=== PATIENT | male | born 1960 | race Caucasian/White ===

== ENCOUNTER 2024-02-12 09:38 | Inpatient (IN) | payer OTHER ==
--- OUTSIDE RECORDS SUMMARY | 2024-02-12 09:48 | XMS REPORT | Continuity of Care Document ---
Author Name Unknown Address [address] [facility] [place] [address] [facility] Address [address] [facility] 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 Role Phone Neville Aranda M.D.mberly Primary Care Physician JUAN C LANG Attending Clinician Unavailable GREGORY ARRIAGA Attending Clinician Unavailable Doctor Unassigned, [place] Attending Clinician U carlos Morel RN, Yamilet Nicole Attending Clinician Unavailab SHIKHA Funes Attending Clinician Unavailmihai Dawson MD, Katty Nunn Attending Clinician [phone] Shikha Thomas MD Attending Clinician [phone] Shelbie Ross Cardiology Attending Clinician Unavailable Pob, [facility] Attending Clinician UnavailLevi Rangel MD Attending Clinician [phone] LEVI DASH Attending Clinician Juan C Pineda MD Attending Clinician [phone] FAROOQ ALMAZAN Attending Clinician UnavailVick Boewr DO Attending Clinician [phone] Nubia Rodas MD Attending Clinician [phone] Alexa Rivera Attending Clinician [phone] ALEXA MARTINEZ Attending Clinician Unavailable NUBIA RODAS Attending Clinician Unavailabl e Cardiology, Tdc Attending Clinician Unavailable Kierra Amin MD Attending Clinician UnavailJUAN C Del Rosario Admitting Clinician Unavailable SHIKHA THOMAS Admitting Clinician Shikha Francois MD Admitting Clinician [phone] Shelbie Ross Cardiology Admitting Clinician Unavailable Payers Payer Name Policy Type Policy Number Effective Date Expirati on Date Source CHOICE CARE [id number] 2019 00:00:00 Problems Condition Name Condition Details Condition Category Status Onset Date Resolution Date Last Treatment Date Treating Clinician Comments Source Morbid obesity with body mass index of 40.0-49.9 Morbid obesity with body mass index of 40.0-49.9 Disease Active 2022-05 00:00: 00 [facility] Altered mental status, unspecifie d altered mental status type Altered mental status, unspecifie d altered mental status type Disease Active 2022-05 00:00: 00 [facility] Injury, other and unspecifie d, knee, leg, ankle, and foot Injury, other and unspecifie d, knee, leg, ankle, and foot Disease Active 2 00:00: 00 Overview: Formattin g of this note might be different from the original. Ankle Injury NOS. [facility] Accidental fall from scaffoldin g Accidental fall from scaffoldin g Disease Active 2005-05 00:00: 00 [facility] Allergies, Adverse Reactions, Alerts Allergy Name Allergy Type Status Severity Reaction(s) Onset Date Inactive Date Treating Clinician Comments Source NAPROXEN DRUG INGREDI Active Unknown-Cmnt 2022-05 00:00: 00 [facility] Naproxen Propensi ty to adverse reaction s Active Unknown - See comments 2022-05 00:00: 00 [facility] No Known Allergie s DA Active U 01-26 00:00: 00 [facility] No Known Allergie s DA Active U 01-26 00:00: 00 [facility] NO KNOWN ALLERGIE S Drug Class Active [facility] Social History Social Habit Start Date Stop Date Quantity Comments Source Sexual orientation [facility] Alcohol intake 2023-03-23 00:00:00 2023-03-23 00:00:00 0 /d [facility] Exposure to SARS-CoV-2 (event) 2020-07-26 00:00:00 2020-08-25 12:19:00 Not sure [facility] History of Social function 2020-07-14 00:00:00 2020-07-14 00:00:00 [facility] Cigarettes smoked current (pack per day) - Reported 2016-03-24 00:00:00 2016-03-24 00:00:00 [facility] Cigarette pack-years 2016-03-24 00:00:00 2016-03-24 00:00:00 [facility] Tobacco use and exposure 2016-03-24 00:00:00 2016-03-24 00:00:00 Former smokeless tobacco user [facility] History of tobacco use 2002-03-24 00:00:00 Snuff User [facility] Sex Assigned At 1960 00:00:00 1960 00:00:00 [facility] Smoking Status Start Date Stop Date Source Ex-smoker 2016-03-24 00:00:00 2016-03-24 00:00:00 [facility] Medications Ordered Medication Name Filled Medication Name Start Date Stop Date Current Medication? Ordering Clinician Indication Dosage Frequency Signature (SIG) Comments Components Source gabapentin 800 mg tablet - 00:00: 00 Yes 1mg Kvng Lawson azithromyci n 250 mg tablet - 00:00: 00 Yes mg Kvng Lawson prednisone 20 mg tablet 10-05 00:00: 00 Yes mg Kvng Lawson cetirizine 10 mg tablet 5- 00:00: 00 Yes 1mg Kvng Lawson Flonase Allergy Relief 50 mcg/actuati on nasal spray,suspe nsion 5- 00:00: 00 Yes 2mcg/ac tuation Kvng Lawson fluticasone propionate 50 mcg/actuati on nasal spray,suspe nsion 5- 00:00: 00 Yes Kvng Lawson gabapentin 600 mg tablet - 00:00: 00 Yes Kvng Lawson azithromyci n 250 mg tablet - 00:00: 00 Yes mg Kvng Lawson Bromfed DM 2 mg-30 mg-10 mg/5 mL oral syrup - 00:00: 00 Yes 10mg/5 mL Kvng Lawson bromphenira mine-pseudo ephedrine-D M 2 mg-30 mg-10 mg/5 mL oral syrup 08-30 00:00: 00 Yes Kvng Lawson azithromyci n 250 mg tablet 08-30 00:00: 00 Yes Kvng Lawson diclofenac 3 % topical gel - 00:00: 00 Yes 1% Kvng Lawson gabapentin 800 mg tablet - 00:00: 00 Yes 1mg Kvng Lawson baclofen 10 mg tablet - 00:00: 00 Yes 1mg Kvng Lawson gabapentin 600 mg tablet -14 00:00: 00 Yes Kvng Lawson Lantus Solostar U-100 Insulin 100 unit/mL (3 mL) subcutaneou s pen -06 00:00: 00 Yes Kvng Lawson albuterol sulfate HFA 90 mcg/actuati on aerosol inhaler 3-05 00:00: 00 Yes mcg/act uation Kvng Lawson gabapentin 800 mg tablet -22 00:00: 00 Yes Kvng Lawson TAKE 1 CAPSULE BY MOUTH EVERY 12 HOURS FOR DENTAL INFECTION -21 00:00: 00 Yes Kvng Lawson metronidazo le 250 mg tablet 2-21 00:00: 00 Yes Kvng Lawson gabapentin 600 mg tablet 2-09 00:00: 00 Yes Kvng Lawson gabapentin 600 mg tablet - 00:00: 00 Yes mg Kvng Lawson baclofen 10 mg tablet -31 00:00: 00 Yes Kvng Lawson baclofen 10 mg tablet 1-08 00:00: 00 Yes Kvng Lawson atorvastati n 80 mg tablet 2022-05 2-17 00:00: 00 Yes Kvng Lawson Santyl 250 unit/gram topical ointment 2022-05 00:00: 00 Yes Kvng Lawson baclofen 10 mg tablet 2022-05 00:00: 00 Yes mg Kvng Lawson gabapentin 800 mg tablet 2022-05 00:00: 00 Yes Kvng Lawson TAKE 1 TABLET 3 TIMES DAILY. 2022-05 00:00: 00 Yes 800 Kvng Lawson TAKE 1 AT BEDTIME PRN ONLY 2022-05 00:00: 00 09-21 00:00 :00 No 10 Kvng Lawson INJECT UNITS BELOW THE SKIN DIRECTED ON SLIDING SCALE TID BEFORE MEALS AVERAGE 30 UNITS 2022-05 00:00: 00 09-21 00:00 :00 No 100 Kvng Lawson INJECT SC 3 TO 10 UNITS BEFORE MEALS THREE TIMES A DAY PLEASE CHECK THE BLOOD SUGARS BEFORE MEALS AND USE THE SLIDING SCALE 2022-05 00:00: 00 09-21 00:00 :00 No 100 Kvng Lawson Lantus Solostar U-100 Insulin 100 unit/mL (3 mL) subcutaneou s pen 2022-05 00:00: 00 Yes (3 mL) Kvng Lawson nebivolol 5 mg tablet 2022-05 00:00: 00 Yes Kvng Lawson sulfamethox azole-trime thoprim (BACTRIM DS) 800-160 mg per tablet 1 tablet 2022-05 02:00: 00 Yes 1{tbl} 1 tablet, Oral, BID, First dose on Tue03/29/23 at 2000, Until Discontinu ed, CASSIE
Re ason for Anti-Infec tive: Documented Infection< br>Documen jia Infection Site: Skin / Soft Tissue
Duration of Therapy: 14 days [facility] clopidogrel 75 mg tablet 2022-05 00:00: 00 Yes Kvng Lawson baclofen 10 mg tablet 2022-05 00:00: 00 Yes Kvng Lawson KCL (KLOR-CON M20) tablet 40 mEq 2022-05 14:00: 00 03-29 13:54 :00 No 40meq 40 mEq, Oral, ONCE, 1 dose, On Tue03/29/23 at 0800, Routine [facility] magnesium sulfate in water 2 gram/50 mL (4 %) infusion 2 g 2022-05 13:45: 00 03-29 15:08 :00 No 2g 2 g, IV Piggyback, Administer over 60 Minutes, ONCE, 1 dose, On Tue03/29/23 at 0745, Routine [facility] nortriptyli ne 75 mg capsule 2022-05 13:40: 18 Yes 75mg Take 75 mg by mouth at bedtime. [facility] aspirin 81 mg EC tablet 2022-05 13:40: 18 Yes 81mg Take 81 mg by mouth daily. [facility] atorvastati n 40 mg tablet 2022-05 13:40: 18 Yes 40mg Take 40 mg by mouth at bedtime. [facility] metFORMIN 1,000 mg tablet 2022-05 13:40: 18 Yes 1000mg Take 1,000 mg by mouth 2 (two) times daily with meals. [facility] metoprolol tartrate 50 mg tablet 2022-05 13:40: 18 Yes 50mg Take 50 mg by mouth 2 (two) times daily. [facility] omeprazole 20 mg capsule 2022-05 13:40: 18 Yes 20mg Take 20 mg by mouth 2 (two) times daily. [facility] TAKE 1 TABLET BY MOUTH IN THE MORNING AND IN THE EVENING FOR 14 DAYS 2022-05 00:00: 00 Yes Kvng Lawson TAKE 1 TO 2 TABLETS EVERY 4 TO 6 HOURS NEEDED FOR PAIN. NO MORE THAN 8 TABLETS PER DAY. 2022-05 00:00: 00 09-21 00:00 :00 No 50 Kvng Lawson sulfamethox azole-trime thoprim 800-160 mg per tablet 2022-05 00:00: 00 04-13 05:59 :00 No [id number] 1{tbl} Take 1 tablet by mouth in the morning and 1 tablet in the evening. Do all this for 14 days. [facility] phenoL (SORE THROAT (PHENOL)) 1.4 % spray bottle 1 [place] 2022-05 17:18: 14 Yes 1{spray } 1 [place], Oral, PRN, Starting on Tue03/28/23 at 1118, Until Discontinu ed, Routine, Sore throat [facility] magnesium sulfate in water 2 gram/50 mL (4 %) infusion 2 g 2022-05 17:15: 00 03-28 18:29 :00 No 2g 2 g, IV Piggyback, Administer over 60 Minutes, ONCE, 1 dose, On Tue03/28/23 at 1115, Routine [facility] pantoprazol e (PROTONIX) EC tablet 40 mg 2022-05 15:00: 00 Yes 40mg 40 mg, Oral, DAILY, First dose on Tue03/28/23 at 0900, Until Discontinu ed, Routine [facility] QUEtiapine (SEROQUEL) tablet 50 mg 2022-05 03:00: 00 Yes 50mg 50 mg, Oral, QHS, First dose (after last modificati on) on 03/27/23 at 2100, Until Discontinu ed, Routine [facility] traZODone (DESYREL) tablet 50 mg 2022-05 17:42: 59 Yes 50mg 50 mg, Oral, TIDPRN, Starting on Tue03/27/23 at 1142, Until Discontinu ed, Routine, agitation [facility] hydralAZINE (APRESOLINE ) injection 10 mg 2022-05 17:38: 49 Yes 10mg 10 mg, Slow IV Push, Q6HPRN, Starting on 03/27/23 at 1138, Until Discontinu ed, Routine, DBP=>100; SBP=>160, For SBP > 160 [facility] ziprasidone (GEODON) injection 10 mg 2022-05 03:37: 28 03-27 15:36 :28 No 10mg 10 mg, Intramuscu lar, Q2HPRN, Starting on 03/26/23 at 2137, Until 03/27/23 at 0936, Routine, Agitation [facility] magnesium sulfate in water 2 gram/50 mL (4 %) infusion 2 g 2022-05 03:30: 00 03-27 04:36 :00 No 2g 2 g, IV Piggyback, Administer over 60 Minutes, ONCE, 1 dose, On 03/26/23 at 2130, CASSIE [facility] dexMEDEtomi dine 400 mcg in 0.9 % NaCl 100 mL (PRECEDEX) RTU IV infusion 2022-05 01:16: 06 Yes .2ug/kg /h 0.2-1.5 mcg/kg/hr ?57.5 kg (2.875-21. 5625 mL/hr, rounded to 2.88-21.56 mL/hr), IV Infusion, TITRATE, Sedation-R ASS score (0 to -1), Starting on 03/26/23 at 1916
In itiate infusion at 0.2 mcg/kg/hr and titrate by 0.1 mcg/kg/hr every 30 minutes to goal sedation score. Maximum dose = 1.5 mcg/kg/hr. If goal not maintained at maximum allowed dose, contact prescriber .
[facility] vancomycin 1,000 mg intravenous injection 2022-05 00:00: 00 Yes Kvng Lawson diazePAM (VALIUM) injection 5 mg 2022-05 23:52: 15 03-27 03:38 :14 No 5mg 5 mg, Intravenou s, Q6HPRN, Starting on 03/26/23 at 1752, Until 03/26/23 at 2138, Routine, Agitation [facility] QUEtiapine (SEROQUEL) tablet 50 mg 2022-05 23:46: 42 03-27 17:44 :47 No 50mg 50 mg, Oral, BIDPRN, Starting on 03/26/23 at 1746, Until 03/27/23 at 1144, Routine, Agitation [facility] potassium chloride in water 10 mEq/100 mL RTU 10 mEq 2022-05 13:00: 00 03-26 19:00 :00 No 10meq 10 mEq, IV Piggyback, Q1H, 2 doses, First dose on 03/26/23 at 0700, Last dose on Tue03/26/23 at 0800, Administer over 60 Minutes, 100 mL [facility] magnesium sulfate in water 4 gram/50 mL (8 %) IV Piggyback 4 g 2022-05 13:00: 00 03-26 14:13 :00 No 4g 4 g, IV Piggyback, at 25 mL/hr Administer over 120 Minutes, ONCE, 1 dose, On 03/26/23 at 0700, CASSIE [facility] dexMEDEtomi dine 200 mcg in 0.9 % NaCl 50 mL (PRECEDEX) RTU IV infusion 2022-05 09:49: 48 03-27 01:17 :03 No .2ug/kg /h 0.2-1.5 mcg/kg/hr ?57.5 kg (2.875-21. 5625 mL/hr, rounded to 2.88-21.56 mL/hr), IV Infusion, TITRATE, Sedation-R ASS score (0 to -1), Starting on Tue03/26/23 at 0349
In itiate infusion at 0.2 mcg/kg/hr and titrate by 0.1 mcg/kg/hr every 30 minutes to goal sedation score. Maximum dose = 1.5 mcg/kg/hr. If goal not maintained at maximum allowed dose, contact prescriber .
[facility] LORazepam (ATIVAN) injection 1 mg 2022-05 09:15: 00 03-26 08:31 :00 No 1mg 1 mg, Slow IV Push, ONCE, 1 dose, On Tue03/26/23 at 0315, Routine [facility] morpHINE (2 mg/mL) injection 2 mg 2022-05 23:17: 09 Yes 2mg 2 mg, Slow IV Push, Q4HPRN, Starting on Tue03/25/23 at 1717, Until Discontinu ed, Routine, Pain (scale 7-10) [facility] nortriptyli ne (PAMELOR) capsule 75 mg 2022-05 03:00: 00 Yes 75mg 75 mg, Oral, QHS, First dose on Tue03/24/23 at 2100, Until Discontinu ed, Routine [facility] atorvastati n (LIPITOR) tablet 40 mg 2022-05 03:00: 00 Yes 40mg 40 mg, Oral, QHS, First dose on Tue03/24/23 at 2100, Until Discontinu ed, Routine [facility] collagenase (SANTYL) ointment 2022-05 21:00: 00 Yes Topical (Apply To Affected Areas), DAILY, First dose on Tue03/24/23 at 1500, Until Discontinu ed, Routine [facility] Sliding Scale Insulin - Lispro (HumaLOG) 2022-05 18:15: 00 Yes Subcutaneo us, Q4H, First dose on Tue03/24/23 at 1215, Until Discontinu ed, Routine [facility] glucagon (GLUCAGEN DIAGNOSTIC KIT) injection 1 mg 2022-05 18:11: 01 Yes 1mg 1 mg, Intramuscu lar, PRN, Starting on Tue03/24/23 at 1211, Until Discontinu ed, CASSIE, Blood Glucose < or = 70 mg/dL and patient is NPO, unable to swallow or has mental changes. [facility] dextrose 50 % in water (D50W) injection 25 mL 2022-05 18:11: 01 Yes 25mL 25 mL, Slow IV Push, PRN, Starting on Tue03/24/23 at 1211, Until Discontinu ed, CASSIE, Blood Glucose < or = 70 mg/dL and patient is NPO, unable to swallow or has mental status changes. [facility] hydralAZINE (APRESOLINE ) injection 10 mg 2022-05 18:10: 30 03-27 17:39 :03 No 10mg 10 mg, Slow IV Push, Q4HPRN, Starting on Tue03/24/23 at 1210, Until 03/27/23 at 1139, Routine, DBP=>100; SBP=>180 [facility] metoprolol tartrate (LOPRESSOR) tablet 50 mg 2022-05 18:00: 00 Yes 50mg 50 mg, Enteral, BID, First dose on Svitlana 03/24/23 at 1200, Until Discontinu ed, Routine [facility] omeprazole compounding kit (FIRST-OMEP RAZOLE) 2 mg/mL oral suspension 20 mg 2022-05 18:00: 00 03-27 21:07 :43 No 20mg 20 mg, Enteral, BID, First dose on Svitlana 03/24/23 at 1200, Until Discontinu ed, Routine [facility] fentaNYL PF (SUBLIMAZE) STD 2,500 mcg in NaCl 0.9% (NS) 250 mL infusion RTU 2022-05 15:48: 00 03-25 22:15 :59 No 25ug/h 25-200 mcg/hr (2.5-20 mL/hr), IV Infusion, TITRATE, CPOT/Pain Scale Goals Determined by Provider, Starting on Svitlana 03/24/23 at 0948
In itiate infusion at 25 mcg/hr. Titrate by 25 mcg/hr every 1 minute to 15 minutes to identified goal pain and/or sedation scores. Maximum dose = 200 mcg/hr. If goal not maintained at maximum allowed dose, contact prescriber .
[facility] FENTanyl PF (SUBLIMAZE (PF)) injection 50 mcg 2022-05 15:48: 00 03-24 15:52 :00 No 50ug 50 mcg, Slow IV Push, ONCE, 1 dose, On Svitlana 03/24/23 at 1000, STAT [facility] aspirin EC tablet 81 mg 2022-05 15:00: 00 Yes 81mg 81 mg, Oral, DAILY, First dose on Svitlana 03/24/23 at 0900, Until Discontinu ed, Routine [facility] enoxaparin (LOVENOX) injection 40 mg 2022-05 15:00: 00 Yes 40mg 40 mg, Subcutaneo us, DAILY, First dose on Svitlana 03/24/23 at 0900, Until Discontinu ed, Routine [facility] vancomycin (VANCOCIN) 1,000 mg in NaCl 0.9% (NS) 250 mL VIAL-MATE IV piggyback 2022-05 15:00: 00 03-30 14:59 :00 No 15mg/kg 1,000 mg (rounded from 952.5 mg = 15 mg/kg ?63.5 kg), IV Piggyback, Q12H ABX, 12 doses, First dose on Tue03/24/23 at 0900, Last dose on Tue03/29/23 at 2100, Administer over 60 Minutes, 250 mL
R nikita for Anti-Infec tive: Documented Infection< br>Documen jia Infection Site: Skin / Soft Tissue
Duration of Therapy: 7 days [facility] gabapentin (NEURONTIN) tablet 600 mg 2022-05 14:00: 00 Yes 600mg 600 mg, Oral, TID, First dose on Tue03/24/23 at 0800, Until Discontinu ed, Routine [facility] midazolam (VERSED) injection 2 mg 2022-05 12:15: 00 03-24 11:29 :00 No 2mg 2 mg, IV Push, ONCE, 1 dose, On Tue03/24/23 at 0615, Routine [facility] NaCl 0.9% (NS) IV infusion 1,000 mL 2022-05 07:00: 00 03-29 00:07 :17 No 1000mL at 100 mL/hr, IV Infusion, CONTINUOUS , Starting on Tue03/24/23 at 0100, Until Tue03/28/23 at 1807, Routine [facility] NaCl 0.9% (NS) bolus infusion 500 mL 2022-05 06:45: 00 03-24 07:08 :00 No 500mL at 999 mL/hr, 500 mL, IV Piggyback, ONCE, 1 dose, On Tue03/24/23 at 0045, STAT [facility] ondansetron (ZOFRAN (PF)) injection 4 mg 2022-05 05:47: 34 Yes 4mg 4 mg, Slow IV Push, Q6HPRN, Starting on Tue03/23/23 at 2347, Until Discontinu ed, Routine, Nausea and Vomiting (N/V) [facility] morpHINE (2 mg/mL) injection 2 mg 2022-05 05:47: 26 03-25 05:46 :26 No 2mg 2 mg, Slow IV Push, Q4HPRN, Starting on Tue03/23/23 at 2347, Until Svitlana 03/24/23 at 2346, Routine, Pain (scale 7-10) [facility] acetaminoph en (TYLENOL) tablet 650 mg 2022-05 05:47: 20 Yes 650mg 650 mg, Oral, Q6HPRN, Starting on Tue03/23/23 at 2347, Until Discontinu ed, Routine, Pain (scale 1-3) [facility] NaCl 0.9% (NS) IV infusion 1,000 mL 2022-05 04:00: 00 03-26 02:08 :34 No 1000mL at 999 mL/hr, Intravenou s, CONTINUOUS , Starting on Tue03/23/23 at 2200, Until Tue03/25/23 at 2008, Routine [facility] propofoL IV infusion 2022-05 02:45: 00 03-25 22:15 :59 No 5ug/kg/ min 5-50 mcg/kg/min ?63.5 kg (1.905-19. 05 mL/hr, rounded to 1.91-19.05 mL/hr), IV Infusion, TITRATE, Sedation-R ASS score (0 to -1), Starting on Tue03/23/23 at 2044
In itiate infusion at 5 mcg/kg/min and titrate by 5 mcg/kg/min every 30 seconds to 10 minutes to goal sedation score. Maximum dose = 50 mcg/kg/min . If goal not maintained at maximum allowed dose, contact prescriber . &nbs p;Tubing and unused portions of vials should be discarded after 12 hours.
[facility] etomidate (AMIDATE) injection 18 mg 2022-05 02:00: 00 03-24 01:58 :00 No 18mg 18 mg, Slow IV Push, ONCE, 1 dose, On Tue03/23/23 at 2000, [facility] succinylcho line (QUELICIN) injection 90 mg 2022-05 01:58: 00 03-24 01:58 :00 No 90mg 90 mg, IV Push, ONCE, 1 dose, On Tue03/23/23 at 2015, STAT [facility] ziprasidone (GEODON) injection 20 mg 2022-05 01:45: 00 03-24 02:13 :00 No 20mg 20 mg, Intramuscu lar, ONCE, 1 dose, On Tue03/23/23 at 2013, [facility] Lidocaine Viscous 2 % mucosal solution 2022-05- 00:00: 00 Yes [facility] vancomycin 1,000 mg intravenous injection 2022-05- 00:00: 00 Yes Kvng Lawson TAKE 1 TABLET BY MOUTH EVERY 8 HOURS NEEDED FOR PAIN 2022-05 0-31 00:00: 00 09-21 00:00 :00 No [facility] vancomycin 1,000 mg intravenous injection 2022-05 0-28 00:00: 00 09-21 00:00 :00 No Kvng Lawson APPLY A NICKEL THIN TOPICALLY TO WOUND DAILY 2022-05 0-26 00:00: 00 Yes Kvng Lawson duloxetine 60 mg capsule,del ayed release 2022-05 0-20 00:00: 00 09-21 00:00 :00 No [facility] Lawson nebivolol 2.5 mg tablet 2022-05 0-17 00:00: 00 Yes Kvng Lawson TAKE 1 CAPSULE BY MOUTH EVERY DAY 2022-05 0-16 00:00: 00 09-21 00:00 :00 No 60 [facility] Lawson nebivolol 2.5 mg tablet 2022-05 0-15 00:00: 00 09-21 00:00 :00 No K[facility] vancomycin 1,000 mg intravenous injection 2022-05 0-14 00:00: 00 09-21 00:00 :00 No Kvng Lawson TAKE 1 TABLET 3 TIMES DAILY. 2022-05 0-13 00:00: 00 Yes 800 K[facility]ng Lawson Lidocaine Viscous 2 % mucosal solution 2022-05 0-12 00:00: 00 09-21 00:00 :00 No [facility] gabapentin 600 mg tablet 2022-05 0-12 00:00: 00 09-21 00:00 :00 No Kvng Lawson APPLY SPARINGLY TO THE AFFECTED AREA(S) TWICE DAILY. 2022-05 0- 00:00: 00 Yes 3 Kvng Lawson acetic acid 0.25 % irrigation solution 2022-05 0- 00:00: 00 09-21 00:00 :00 No K[facility]ng [facility] vancomycin 1,000 mg intravenous injection 2022-05 0-08 00:00: 00 09-21 00:00 :00 No K[facility]ng [facility] vancomycin 1,000 mg intravenous injection 2022-05 0-06 00:00: 00 09-21 00:00 :00 No Kvng Lawson vancomycin 1,000 mg intravenous injection 02-11 00:00: 00 09-21 00:00 :00 No Kvng Lawson Santyl 250 unit/gram topical ointment 02-10 00:00: 00 09-21 00:00 :00 Chantal Lawson TAKE 1 TABLET EVERY 6 HOURS NEEDED FOR BREAKTHROUG H PAIN. 02-08 00:00: 00 09-21 00:00 :00 No 50 Kvng Lawson ciprofloxac in 500 mg tablet 02-05 00:00: 00 09-21 00:00 :00 No K[facility]ng Lawson gabapentin 800 mg tablet 02-03 00:00: 00 09-21 00:00 :00 Chantal Lawson TAKE 1 TABLET BY MOUTH TWICE DAILY FOR 7 DAYS 02-03 00:00: 00 09-21 00:00 :00 No Kvng Lawson TAKE 1 TABLET 3 TIMES DAILY. 02-02 00:00: 00 09-21 00:00 :00 No 800 Kvng Lawson atorvastati n 80 mg tablet 16 00:00: 00 09-21 00:00 :00 No Kvng Lawson ciprofloxac in 500 mg tablet 01-25 00:00: 00 09-21 00:00 :00 No Kvng Lawson doxycycline hyclate 100 mg tablet 01-25 00:00: 00 09-21 00:00 :00 No Kvng Lawson Farxiga 10 mg tablet 01-24 00:00: 00 09-21 00:00 :00 No Kvng Lawson TAKE 1 TABLET BY MOUTH THREE TIMES DAILY 01-22 00:00: 00 Yes Kvng Lawson TAKE 1 CAPSULE TWICE DAILY. 01-22 00:00: 00 09-21 00:00 :00 No 100 Kvng Lawson TAKE 1 TABLET BY MOUTH EVERY MORNING 01-22 00:00: 00 09-21 00:00 :00 No 10 Kvng Lawson TAKE 1 TABLET BY MOUTH ONCE DAILY 01-21 00:00: 00 09-21 00:00 :00 No Kvng Sánchez Renny tramadol 50 mg tablet 01-15 00:00: 00 09-21 00:00 :00 No Kvng Lawson TAKE 1 TABLET EVERY 6 HOURS NEEDED FOR BREAKTHROUG H PAIN. 01-14 00:00: 00 09-21 00:00 :00 No 50 Kvng Lawson TAKE 1 TABLET DAILY. 01-13 00:00: 00 09-21 00:00 :00 No 75 Kvng Sánchez Renny 20 UNITS Q NIGHTLY 01-13 00:00: 00 09-21 00:00 :00 No 100 Kvng Sánchez Lawson Santyl 250 unit/gram topical ointment 01-09 00:00: 00 09-21 00:00 :00 No Kvng Sánchez Renny TAKE 1 CAPSULE BY MOUTH TWICE DAILY 01-06 00:00: 00 09-21 00:00 :00 No Kvng Lawson hydrocodone 7.5 mg-acetamin ophen 325 mg tablet 01-06 00:00: 00 09-21 00:00 :00 No Kvng Lawson ibuprofen 800 mg tablet 01-05 00:00: 00 09-21 00:00 :00 No Kvng Lawson baclofen 10 mg tablet 01-05 00:00: 00 09-21 00:00 :00 No Kvng Lawson amoxicillin 500 mg capsule 01-05 00:00: 00 09-21 00:00 :00 No Kvng Sánchez Lawson TAKE 1 TABLET EVERY 4 TO 6 HOURS NEEDED FOR PAIN. 12-22 00:00: 00 09-21 00:00 :00 No 50 Kvng Lawson duloxetine 60 mg capsule,del ayed release 12-01 00:00: 00 09-21 00:00 :00 No Kvng Pozo Renny TAKE 1 TABLET EVERY 12 HOURS NEEDED. 11-30 00:00: 00 09-21 00:00 :00 No 50 Kvng Lawson Santyl 250 unit/gram topical ointment 11-30 00:00: 00 09-21 00:00 :00 No 250 Kvng Lawson APPLY OINTMENT DAILY TO LEFT DORSAL FOOT WOUND 11-29 00:00: 00 09-21 00:00 :00 No Kvng Sánchez Lawson gabapentin 600 mg tablet 11-19 00:00: 00 09-21 00:00 :00 No Kvng Sánchez Lawson albuterol sulfate HFA 90 mcg/actuati on aerosol inhaler 11-17 00:00: 00 09-21 00:00 :00 Chantal Prabhakarhen Sánchez Renny INHALE 2 PUFFS EVERY 4-6 HOURS NEEDED. 10-19 00:00: 00 09-21 00:00 :00 No [id number] Kvng Lawson TAKE 1 TABLET BY MOUTH 3 TIMES DAILY 10-19 00:00: 00 09-21 00:00 :00 No [id number] Kvng Lawson duloxetine 30 mg capsule,del ayed release - 00:00: 00 09-21 00:00 :00 No Kvng Sánchez Renny TAKE 1 TABLET BY MOUTH TWICE DAILY 2023-0 4-19 00:00: 00 09-21 00:00 :00 No Kvng Lawson TAKE 1 TABLET 3 TIMES DAILY. 4-17 00:00: 00 09-21 00:00 :00 No 600 Kvng F Renny duloxetine 60 mg capsule,del ayed release 4-06 00:00: 00 09-21 00:00 :00 No 60 Kvng F Renny ketoconazol e 2 % topical cream 3-14 00:00: 00 09-21 00:00 :00 No 2 Kvng Lawson APPLY SPARINGLY TO THE AFFECTED AREA(S) TWICE DAILY. 2- 00:00: 00 09-21 00:00 :00 No 3 Kvng F Renny baclofen 10 mg tablet 2-23 00:00: 00 09-21 00:00 :00 No Kvng F Renny duloxetine 40 mg capsule,del ayed release 2-14 00:00: 00 09-21 00:00 :00 No 40 Kvng F Renny ketoconazol e 2 % topical cream 2-06 00:00: 00 09-21 00:00 :00 No Kvng Lawson TAKE 1 TABLET BY MOUTH AT BEDTIME 1-10 00:00: 00 09-21 00:00 :00 No Kvng Lawson APPLY CREAM TOPICALLY TO RASH ON GROIN AND BUTTOCKS TWICE DAILY 1-09 00:00: 00 09-21 00:00 :00 No Kvng Lawson Dose Unknown 2021-05 2-15 00:00: 00 09-21 00:00 :00 No Kvng Lawson baclofen 10 mg tablet 2021-05 2-15 00:00: 00 09-21 00:00 :00 No Kvng Lawson tizanidine 4 mg capsule 2021-05 2-15 00:00: 00 09-21 00:00 :00 No Kvng Lawson Dose Unknown 2021-05 2-15 00:00: 00 09-21 00:00 :00 No Kvng Lawson gabapentin 800 mg tablet 2022-1 2-15 00:00: 00 09-21 00:00 :00 No Kvng F Ernny diclofenac sodium 75 mg tablet,gurdeep yed release 2021-05 2-15 00:00: 00 09-21 00:00 :00 No Kvng F Renny TAKE 1 TABLET BY MOUTH EVERY 6 HOURS NEEDED FOR PAIN 2021-05 2-15 00:00: 00 09-21 00:00 :00 No Kvng F Renny Dose Unknown 2021-05 2-15 00:00: 00 09-21 00:00 :00 No Kvng F Renny Dose Unknown 2021-05 2-15 00:00: 00 09-21 00:00 :00 No Kvng F Renny cyclobenzap rine 5 mg tablet 2021-05 2-15 00:00: 00 09-21 00:00 :00 No Kvng F Renny Dose Unknown 2021-05 2-15 00:00: 00 09-21 00:00 :00 No Kvng F Renny diclofenac sodium 50 mg tablet,gurdeep yed release 2021-05 2-15 00:00: 00 09-21 00:00 :00 No Kvng F Renny Dose Unknown 2021-05 2-15 00:00: 00 09-21 00:00 :00 No Kvng F Renny Dose Unknown 2021-05 2-15 00:00: 00 09-21 00:00 :00 No Kvng F Renny Dose Unknown 2021-05 2-15 00:00: 00 09-21 00:00 :00 No Kvng F Renny Dose Unknown 2021-05 2-15 00:00: 00 09-21 00:00 :00 No Kvng F Renny Dose Unknown 2021-05 2-15 00:00: 00 09-21 00:00 :00 No Kvng F Renny Dose Unknown 2021-05 2-15 00:00: 00 09-21 00:00 :00 No Kvng F Renny Dose Unknown 2021-05 2-15 00:00: 00 09-21 00:00 :00 No Kvng F Renny Dose Unknown 2021-05 2-15 00:00: 00 09-21 00:00 :00 No Kvng F Renny Dose Unknown 2021-05 2-15 00:00: 00 09-21 00:00 :00 No Kvng F Renny Dose Unknown 2021-05 215 00:00: 00 09-21 00:00 :00 No Kvng F Renny Dose Unknown 2021-05 2-15 00:00: 00 09-21 00:00 :00 No Kvng F Renny Dose Unknown 2021-05 2 00:00: 00 09-21 00:00 :00 No Kvng F Renny APPLY 1ML TO THE SKIN DIRECTED; CLEAN WOUND DAILY NEEDED 2021-05 2 00:00: 00 09-21 00:00 :00 No Kvng F Renny Dose Unknown 2021-05 2 00:00: 00 09-21 00:00 :00 No Kvng F Renny Dose Unknown 2021-05 2- 00:00: 00 09-21 00:00 :00 No Kvng F Renny ketoconazol e 2 % topical cream 2021-05 2- 00:00: 00 09-21 00:00 :00 No 2 K[facility] F Renny baclofen 10 mg tablet 2021-05 1-17 00:00: 00 09-21 00:00 :00 No 10 K[facility] F Renny ketoconazol e 2 % topical cream 2021-05 1-05 00:00: 00 09-21 00:00 :00 No Kvng F Renny gabapentin 800 mg tablet 2021-05 1-03 00:00: 00 09-21 00:00 :00 No Kvng F Renny diclofenac 1 % topical gel 9-29 00:00: 00 09-21 00:00 :00 No 1 K[facility] F Renny baclofen 10 mg tablet 2021- 8-11 00:00: 00 No 1mg baclofen 10 mg tablet 8-11 00:00: 00 Yes 1mg Kvng F Renny Dose Unknown 7-23 00:00: 00 No &lt 2-0 7-23 00:00: 00 No &lt 2-0 7-23 00:00: 00 No Dose Unknown 7 00:00: 00 No &lt 2022-0 12-05 00:00: 00 No &lt 2022-0 12-05 00:00: 00 No Dose Unknown 2022-0 12-05 00:00: 00 No &lt 2022-0 12-05 00:00: 00 No Dose Unknown 2022-0 12-05 00:00: 00 No &lt 2022-0 12-05 00:00: 00 No &lt 2022-0 12-05 00:00: 00 No &lt 2022-0 12-05 00:00: 00 No Dose Unknown 2022-0 12-05 00:00: 00 No &lt 2022-0 12-05 00:00: 00 No &lt 2022-0 12-05 00:00: 00 No &lt 2022-0 12-05 00:00: 00 No Dose Unknown 2022-0 12-05 00:00: 00 Yes Kvng F Renny &lt 2022-0 12-05 00:00: 00 Yes Kvng F Renny &lt 2022-0 12-05 00:00: 00 Yes Kvng F Renny Dose Unknown 2022-0 12-05 00:00: 00 Yes Kvng F Renny &lt 2022-0 12-05 00:00: 00 Yes Kvng F Renny &lt 2022-0 12-05 00:00: 00 Yes Kvng F Renny Dose Unknown 2-0 12-05 00:00: 00 Yes Kvng F Renny &lt 2022-0 12-05 00:00: 00 Yes Kvng F Renny Dose Unknown 2022-0 12-05 00:00: 00 Yes Kvng F Renny &lt 2022-0 12-05 00:00: 00 Yes Kvng F Renny &lt 2022-0 12-05 00:00: 00 Yes Kvng F Renny &lt 2022-0 12-05 00:00: 00 Yes Kvng F Renny Dose Unknown 2022-0 12-05 00:00: 00 Yes Kvng F Renny &lt 2022-0 12-05 00:00: 00 Yes Kvng F Renny &lt 2022-0 12-05 00:00: 00 Yes Kvng F Renny &lt 2022-0 12-05 00:00: 00 Yes Kvng F Renny gabapentin 800 mg tablet 2-0 11-19 00:00: 00 No 1mg baclofen 10 mg tablet 2-0 7- 00:00: 00 No 1mg duloxetine 40 mg capsule,del ayed release 2021-0 - 00:00: 00 No 1mg &lt 2022-0 - 00:00: 00 No &lt 2022-0 11-19 00:00: 00 No gabapentin 800 mg tablet 2-0 11-19 00:00: 00 Yes 1mg Kvng Lawson baclofen 10 mg tablet 2-0 11-19 00:00: 00 Yes 1mg Kvng Lawson duloxetine 40 mg capsule,del ayed release 2021-0 11-19 00:00: 00 Yes 1mg Kvng Lawson &lt 2022-0 11-19 00:00: 00 Yes Kvng Lawson &lt 2022-0 11-19 00:00: 00 Yes Kvng Lawson diclofenac 1 % topical gel 2021-0 11-19 00:00: 00 05- 00:00 :00 No 1 Kvng Lawson &lt 2022-0 7- 00:00: 00 No &lt 2022-0 7- 00:00: 00 Yes Kvng Lawson diclofenac potassium 50 mg tablet 2-0 6-30 00:00: 00 No 1mg diclofenac potassium 50 mg tablet 2-0 6-30 00:00: 00 Yes 1mg Kvng Pozo Renny &lt 2022-0 6-29 00:00: 00 No &lt 2022-0 6-29 00:00: 00 No &lt 2022-0 6-29 00:00: 00 Yes Kvng Lawson &lt 2022-0 6-29 00:00: 00 Yes Kvng Lawson &lt 2022-0 6-24 00:00: 00 No &lt 2022-0 6-24 00:00: 00 Yes Kvng Lawson duloxetine 40 mg capsule,del ayed release 2-0 6- 00:00: 00 No 1mg duloxetine 40 mg capsule,del ayed release 2-0 6- 00:00: 00 Yes 1mg Kvng Lwason gabapentin 800 mg tablet 2-0 5-25 00:00: 00 No 1mg gabapentin 800 mg tablet 2-0 5-25 00:00: 00 Yes 1mg Kvng Lawson diclofenac potassium 50 mg tablet 0 - 00:00: 00 No 1mg diclofenac potassium 50 mg tablet 2021-0 - 00:00: 00 Yes 1mg Kvng Lawson diclofenac sodium 50 mg tablet,gurdeep yed release 0 - 00:00: 00 - 00:00 :00 No 50 Kvng Lawson mupirocin 2 % topical ointment 0 - 00:00: 00 No 1% Januvia 100 mg tablet 0 - 00:00: 00 No 1mg acetaminoph en 300 mg-codeine 30 mg tablet 0 - 00:00: 00 No 1mg clindamycin HCl 300 mg capsule 0 - 00:00: 00 No 1mg mupirocin 2 % topical ointment 0 09-14 00:00: 00 Yes 1% Kv[facility] Lawson Januvia 100 mg tablet 0 - 00:00: 00 Yes 1mg Kvng Lawson acetaminoph en 300 mg-codeine 30 mg tablet 0 - 00:00: 00 Yes 1mg Kvng Lawson clindamycin HCl 300 mg capsule 0 - 00:00: 00 Yes 1mg Kvng Lawson Dose Unknown 0 -18 00:00: 00 No Dose Unknown 0 -18 00:00: 00 Yes Kvng Lawson Bactrim DS 800 mg-160 mg tablet 0 -12 00:00: 00 No 1mg Dose Unknown 0 -12 00:00: 00 No Bactrim DS 800 mg-160 mg tablet 0 4-12 00:00: 00 Yes 1mg Kvng Lawson Dose Unknown 0 4-12 00:00: 00 Yes Kvng Lawson acetaminoph en 300 mg-codeine 30 mg tablet 0 3-31 00:00: 00 No 1mg acetaminoph en 300 mg-codeine 30 mg tablet 0 3-31 00:00: 00 Yes 1mg Kvng Lawson Dose Unknown 0 3-21 00:00: 00 No Dose Unknown 0 3-21 00:00: 00 Yes Kvng Lawson Januvia 100 mg tablet 2-0 3-16 00:00: 00 No 1mg tizanidine 4 mg capsule 2-0 3-16 00:00: 00 No 1mg Dose Unknown 2-0 3-16 00:00: 00 No Dose Unknown 2022-0 3-16 00:00: 00 No Januvia 100 mg tablet 2-0 3-16 00:00: 00 Yes 1mg Kvng Lawson tizanidine 4 mg capsule 2-0 3-16 00:00: 00 Yes 1mg Kvng Lawson Dose Unknown 2022-0 3-16 00:00: 00 Yes Kvng Lawson Dose Unknown 2022-0 3-16 00:00: 00 Yes Kvng Lawson Dose Unknown 2-0 3-15 00:00: 00 No Dose Unknown 2022-0 3-15 00:00: 00 No Hibiclens 4 % topical liquid 2-0 3-15 00:00: 00 No 1% Dose Unknown 2022-0 3-15 00:00: 00 Yes Kvng Lawson Dose Unknown 2022-0 3-15 00:00: 00 Yes Kvng Lawson Hibiclens 4 % topical liquid 2-0 3-15 00:00: 00 Yes 1% Kvng Lawson Dose Unknown 2-0 3-14 00:00: 00 No Dose Unknown 2-0 3-14 00:00: 00 No Dose Unknown 2022-0 3-14 00:00: 00 No Dose Unknown 2022-0 3-14 00:00: 00 Yes Kvng Lawson Dose Unknown 2022-0 3-14 00:00: 00 Yes Kvng Lawson Dose Unknown 2022-0 3-14 00:00: 00 Yes Kvng Lawson mupirocin 2 % topical ointment 2-0 2-16 00:00: 00 No % clindamycin HCl 300 mg capsule 2-0 2-16 00:00: 00 No 1mg mupirocin 2 % topical ointment 2-0 2-16 00:00: 00 Yes % Kvng Lawson clindamycin HCl 300 mg capsule 2-0 2-16 00:00: 00 Yes 1mg Kvng Lawson Januvia 100 mg tablet 2022-0 2-01 00:00: 00 No 1mg Dose Unknown 2- 00:00: 00 No metformin 1,000 mg tablet 2- 00:00: 00 No 1mg Bactrim DS 800 mg-160 mg tablet 2- 00:00: 00 No 1mg Dose Unknown 2- 00:00: 00 No atorvastati n 40 mg tablet 2- 00:00: 00 No 1mg tizanidine 4 mg capsule 2- 00:00: 00 No 1mg Januvia 100 mg tablet 2- 00:00: 00 Yes 1mg Kvng Lawson Dose Unknown 2- 00:00: 00 Yes Kvng Lawson metformin 1,000 mg tablet 2- 00:00: 00 Yes 1mg Kvng Lawson Bactrim DS 800 mg-160 mg tablet 2- 00:00: 00 Yes 1mg Kvng Lawson gabapentin 800 mg tablet 2- 00:00: 00 Yes 1mg Kvng Lawson atorvastati n 40 mg tablet 2- 00:00: 00 Yes 1mg Kvng Lawson tizanidine 4 mg capsule 2- 00:00: 00 Yes 1mg Kvng Lawson gabapentin 800 mg tablet 2020-05 2-16 00:00: 00 No 1mg tizanidine 4 mg capsule 2020-05 2-16 00:00: 00 No 1mg gabapentin 800 mg tablet 2020-05 2-16 00:00: 00 Yes 1mg Kvng Lawson tizanidine 4 mg capsule 2020-05 2-16 00:00: 00 Yes 1mg Kvng Lawson cyclobenzap rine 5 mg tablet 2020-05 2-10 00:00: 00 No 12mg diclofenac sodium 75 mg tablet,gurdeep yed release 2020-05 2-10 00:00: 00 No 1mg cyclobenzap rine 5 mg tablet 2020-05 2-10 00:00: 00 Yes 12mg Kvng Lawson diclofenac sodium 75 mg tablet,gurdeep yed release 2020-05 2- 00:00: 00 Yes 1mg Kvng Lawson diclofenac sodium 75 mg tablet,gurdeep yed release 01-08 00:00: 00 No 1mg metformin 1,000 mg tablet 01-08 00:00: 00 No 1mg gabapentin 600 mg tablet 01-08 00:00: 00 No 1mg diclofenac sodium 75 mg tablet,gurdeep yed release 01-08 00:00: 00 Yes 1mg Kvng Lawson metformin 1,000 mg tablet 01-08 00:00: 00 Yes 1mg Kvng Lawson gabapentin 600 mg tablet 01-08 00:00: 00 Yes 1mg Kvng Lawson diclofenac sodium 75 mg tablet,gurdeep yed release 10-22 00:00: 00 No 1mg diclofenac sodium 75 mg tablet,gurdeep yed release 10-22 00:00: 00 Yes 1mg Kvng Lawson diclofenac sodium 75 mg tablet,gurdeep yed release 09-19 00:00: 00 No 1mg gabapentin 600 mg tablet 09-19 00:00: 00 No 1mg diclofenac sodium 75 mg tablet,gurdeep yed release 09-19 00:00: 00 Yes 1mg Kvng Lawson gabapentin 600 mg tablet 09-19 00:00: 00 Yes 1mg Kvng Lawson diclofenac sodium 50 mg tablet,gurdeep yed release 08-08 00:00: 00 No 1mg diclofenac sodium 50 mg tablet,gurdeep yed release 08-08 00:00: 00 Yes 1mg Kvng Lawson diclofenac sodium 50 mg tablet,gurdeep yed release 07-11 00:00: 00 No 1mg diclofenac sodium 50 mg tablet,gurdeep yed release 07-11 00:00: 00 Yes 1mg Kvng Lawson carBAMazepi ne 200 mg tablet 06-18 22:08: 12 06-18 00:00 :00 No 400mg Take 400 mg by mouth every 12 (twelve) hours. [facility] amLODIPine 5 mg tablet 06-18 22:08: 12 06-18 00:00 :00 No 5mg Take 5 mg by mouth daily. [facility] glipiZIDE 5 mg tablet 06-18 22:08: 12 06-18 00:00 :00 No 5mg Take 5 mg by mouth daily. [facility] carBAMazepi ne 200 mg tablet 06-18 16:08: 12 06-18 00:00 :00 No 400mg Take 400 mg by mouth every 12 (twelve) hours. [facility] amLODIPine 5 mg tablet 06-18 16:08: 12 06-18 00:00 :00 No 5mg Take 5 mg by mouth daily. [facility] glipiZIDE 5 mg tablet 06-18 16:08: 06-18 00:00 :00 No 5mg Take 5 mg by mouth daily. [facility] methylPREDN ISolone (MEDROL, YULIA,) 4 mg tablets 06-18 00:00: 00 03-29 00:00 :00 No [id number] 84mg Take 21 tablets by mouth SEE-INSTRU CTIONS. follow package directions [facility] tiZANidine 4 mg capsule 06-12 00:00: 00 Yes [facility] BYSTOLIC 2.5 mg tablet 06-11 00:00: 00 03-29 00:00 :00 No [facility] diclofenac sodium 50 mg tablet,gurdeep yed release 06-10 00:00: 00 No 1mg diclofenac sodium 50 mg tablet,gurdeep yed release 06-10 00:00: 00 Yes 1mg Kvng Sánchez Lawson Januvia 100 mg tablet 05-28 00:00: 00 No 1mg Januvia 100 mg tablet 05-28 00:00: 00 Yes 1mg Kvng Lawson tizanidine 4 mg capsule 05-20 00:00: 00 No 1mg tizanidine 4 mg capsule 05-20 00:00: 00 Yes 1mg Kvng Lawson gabapentin 600 mg tablet 05-17 00:00: 00 Yes 600mg Take 600 mg by mouth 3 (three) times daily. [facility] diclofenac 75 mg EC tablet 2019-05 00:00: 00 Yes 75mg Take 75 mg by mouth 2 (two) times daily. [facility] diclofenac sodium 75 mg tablet,gurdeep yed release 2019-05 00:00: 00 No 1mg Zithromax 250 mg tablet 2019-05 00:00: 00 No 1mg diclofenac sodium 75 mg tablet,gurdeep yed release 2019-05 00:00: 00 Yes 1mg Kvng Lawson Zithromax 250 mg tablet 2019-05 00:00: 00 Yes 1mg Kvng Lawson JANUVIA 100 mg tablet 2019-05 00:00: 00 Yes 100mg Take 100 mg by mouth daily. [facility] metformin 1,000 mg tablet 2019-05 00:00: 00 No 1mg metformin 1,000 mg tablet 2019-05 00:00: 00 Yes 1mg Kvng Lawson diclofenac sodium 75 mg tablet,gurdeep yed release 01-30 00:00: 00 No 1mg diclofenac sodium 75 mg tablet,gurdeep yed release 01-30 00:00: 00 Yes 1mg Kvng Lawson Januvia 100 mg tablet 01-27 00:00: 00 No 1mg Januvia 100 mg tablet 01-27 00:00: 00 Yes 1mg Kvng Lawson tizanidine 4 mg capsule 11-14 00:00: 00 No 1mg tizanidine 4 mg capsule 11-14 00:00: 00 Yes 1mg Kvng Lawson Voltaren 1 % topical gel 11-12 00:00: 00 No 1% lisinopril 2.5 mg tablet 11-12 00:00: 00 No 1mg Januvia 100 mg tablet 11-12 00:00: 00 No 1mg diclofenac sodium 75 mg tablet,gurdeep yed release 11-12 00:00: 00 No 1mg metformin 1,000 mg tablet 11-12 00:00: 00 No 1mg gabapentin 600 mg tablet 11-12 00:00: 00 No 1mg atorvastati n 40 mg tablet 11-12 00:00: 00 No 1mg Voltaren 1 % topical gel 11-12 00:00: 00 Yes 1% Kvng Lawson lisinopril 2.5 mg tablet 11-12 00:00: 00 Yes 1mg Kvng Lawson Januvia 100 mg tablet 11-12 00:00: 00 Yes 1mg Kvng Lawson diclofenac sodium 75 mg tablet,gurdeep yed release 11-12 00:00: 00 Yes 1mg Kvng Lawson metformin 1,000 mg tablet 11-12 00:00: 00 Yes 1mg Kvng Lawson gabapentin 600 mg tablet 11-12 00:00: 00 Yes 1mg Kvng Lawson atorvastati n 40 mg tablet 11-12 00:00: 00 Yes 1mg Kvng Lawson diclofenac sodium 75 mg tablet,gurdeep yed release 0 09-25 00:00: 00 No 1mg diclofenac sodium 75 mg tablet,gurdeep yed release 0 09-25 00:00: 00 Yes 1mg Kvng Lawson Voltaren 1 % topical gel 09-24 00:00: 00 No 1% Januvia 100 mg tablet 09-24 00:00: 00 No 1mg gabapentin 600 mg tablet 09-24 00:00: 00 No 1mg lisinopril 2.5 mg tablet 09-24 00:00: 00 No 1mg metformin 1,000 mg tablet 09-24 00:00: 00 No 1mg atorvastati n 40 mg tablet 09-24 00:00: 00 No 1mg Voltaren 1 % topical gel 09-24 00:00: 00 Yes 1% Kvng Lawson Januvia 100 mg tablet 09-24 00:00: 00 Yes 1mg Kvng Lawson gabapentin 600 mg tablet 09-24 00:00: 00 Yes 1mg Kvng Lawson lisinopril 2.5 mg tablet 09-24 00:00: 00 Yes 1mg Kvng Lawson metformin 1,000 mg tablet 09-24 00:00: 00 Yes 1mg Kvng Lawson atorvastati n 40 mg tablet 2019-0 5-12 00:00: 00 Yes 1mg Kvng Lawson Voltaren 1 % topical gel 2019-0 3-31 00:00: 00 No 1% tizanidine 4 mg capsule 2019-0 3-31 00:00: 00 No 1mg Voltaren 1 % topical gel 2019-0 3-31 00:00: 00 Yes 1% Kvng Lawson tizanidine 4 mg capsule 2019-0 3-31 00:00: 00 Yes 1mg Kvng Lawson diclofenac sodium 75 mg tablet,gurdeep yed release 2020-0 3-18 00:00: 00 No 1mg diclofenac sodium 75 mg tablet,gurdeep yed release 2019-0 3-18 00:00: 00 Yes 1mg Kvng Lawson tizanidine 4 mg tablet 2019-0 2-17 00:00: 00 No 1mg tizanidine 4 mg tablet 2019-0 2-17 00:00: 00 Yes 1mg Kvng Lawson tizanidine 4 mg capsule 2019-0 2-14 00:00: 00 No 1mg tizanidine 4 mg capsule 2019-0 2-14 00:00: 00 Yes 1mg Kvng Lawson gabapentin 600 mg tablet 2019-0 2-13 00:00: 00 No 1mg atorvastati n 40 mg tablet 2019-0 2-13 00:00: 00 No 1mg diclofenac sodium 75 mg tablet,gurdeep yed release 2019-0 2-13 00:00: 00 No 1mg tizanidine 4 mg capsule 2019-0 2-13 00:00: 00 No 1mg glimepiride 4 mg tablet 2019-0 2-13 00:00: 00 No 1mg gabapentin 600 mg tablet 2019-0 2-13 00:00: 00 Yes 1mg Kvng Lawson glimepiride 4 mg tablet 2019-0 2-13 00:00: 00 Yes 1mg Kvng Lawson atorvastati n 40 mg tablet 2019-0 2-13 00:00: 00 Yes 1mg Kvng Lawson diclofenac sodium 75 mg tablet,gurdeep yed release 2020-0 2-13 00:00: 00 Yes 1mg Kvng Lwason tizanidine 4 mg capsule 2019-0 2-13 00:00: 00 Yes 1mg Kvng Lawson atorvastati n 40 mg tablet 06-27 00:00: 00 No 1mg gabapentin 600 mg tablet 06-27 00:00: 00 No 1mg glimepiride 4 mg tablet 06-27 00:00: 00 No 1mg baclofen 10 mg tablet 06-27 00:00: 00 No 1mg atorvastati n 40 mg tablet 06-27 00:00: 00 Yes 1mg Kvng Lawson gabapentin 600 mg tablet 06-27 00:00: 00 Yes 1mg Kvng Lawson glimepiride 4 mg tablet 06-27 00:00: 00 Yes 1mg Kvng Lawson baclofen 10 mg tablet 06-27 00:00: 00 Yes 1mg Kvng Lawson omeprazole 20 mg capsule 2016-05 20:38: 59 Yes 20mg Take 20 mg by mouth 2 (two) times daily. [facility] metoprolol tartrate 50 mg tablet 2016-05 20:38: 58 Yes 50mg Take 50 mg by mouth 2 (two) times daily. [facility] nortriptyli ne 75 mg capsule 2016-05 20:38: 58 Yes 75mg Take 75 mg by mouth at bedtime. [facility] aspirin 81 mg EC tablet 2016-05 20:38: 58 Yes 81mg Take 81 mg by mouth daily. [facility] atorvastati n 40 mg tablet 2016-05 20:38: 58 Yes 40mg Take 40 mg by mouth at bedtime. [facility] metFORMIN 1,000 mg tablet 2016-05 20:38: 58 Yes 1000mg Take 1,000 mg by mouth 2 (two) times daily with meals. [facility] omeprazole 20 mg capsule 2016-05 14:38: 59 Yes 20mg Take 20 mg by mouth 2 (two) times daily. [facility] nortriptyli ne 75 mg capsule 2016-05 14:38: 58 Yes 75mg Take 75 mg by mouth at bedtime. [facility] aspirin 81 mg EC tablet 2016-05 14:38: 58 Yes 81mg Take 81 mg by mouth daily. [facility] atorvastati n 40 mg tablet 2016-05 14:38: 58 Yes 40mg Take 40 mg by mouth at bedtime. [facility] metFORMIN 1,000 mg tablet 2016-05 14:38: 58 Yes 1000mg Take 1,000 mg by mouth 2 (two) times daily with meals. [facility] metoprolol tartrate 50 mg tablet 2016-05 14:38: 58 Yes 50mg Take 50 mg by mouth 2 (two) times daily. [facility] Immunizations Ordered Immunization Name Filled Immunization Name Date Status Comments Source zoster 2012-05-16 00:00:00 Completed zoster 2012-05-16 00:00:00 Completed zoster 2012-05-16 00:00:00 Completed zoster zoster 2012-05-16 00:00:00 Completed [facility] Vital Signs Vital Name Observation Time Observation Value Comments S alyssa Systolic blood pressure 2023-03-29 18:00:00 157 mm[Hg] [facility] Diastolic blood pressure 2023-03-29 18:00:00 95 mm[Hg] [facility] Body temperature 2023-03-29 18:00:00 36.44 [facility] Heart rate 2023-03-29 16:00:00 81 /min [facility] Respiratory rate 2023-03-29 16:00:00 15 /min [facility] Oxygen saturation in Arterial blood by Pulse oximetry 2023-03-29 16:00:00 98 /min [facility] Body weight 2023-03-29 10:00:00 57.516 kg [facility] BMI 2023-03-29 10:00:00 18.73 kg/m2 [facility] Body height 2023-03-24 01:13:00 175.3 cm [facility] Body temperature 2020-08-25 16:09:00 36.67 [facility] Body weight 2020-08-25 16:09:00 60.328 kg [facility] BMI 2020-08-25 16:09:00 19.93 kg/m2 [facility] Body temperature 2020-08-18 18:35:00 37.22 [facility] Body weight 2020-08-18 18:35:00 61.78 kg [facility] BMI 2020-08-18 18:35:00 20.41 kg/m2 [facility] Systolic blood pressure 2020-07-14 19:32:00 122 mm[Hg] [facility] Diastolic blood pressure 2020-07-14 19:32:00 76 mm[Hg] [facility] Body height 2020-07-14 19:32:00 174 cm [facility] Body weight 2020-07-14 19:32:00 68.04 kg [facility] BMI 2020-07-14 19:32:00 22.47 kg/m2 [facility] Systolic blood pressure 2020-06-18 22:06:00 121 mm[Hg] [facility] Diastolic blood pressure 2020-06-18 22:06:00 79 mm[Hg] [facility] Heart rate 2020-06-18 22:06:00 65 /min [facility] Body height 2020-06-18 22:06:00 174 cm [facility] Body weight 2020-06-18 22:06:00 68.04 kg [facility] BMI 2020-06-18 22:06:00 22.48 kg/m2 [facility] Systolic blood pressure 2017-03-23 17:12:00 138 mm[Hg] [facility] Diastolic blood pressure 2017-03-23 17:12:00 73 mm[Hg] [facility] Heart rate 2017-03-23 17:12:00 89 /min [facility] Body temperature 2017-03-23 17:12:00 36.89 [facility] Respiratory rate 2017-03-23 17:12:00 18 /min [facility] Body height 2017-03-23 17:12:00 175.3 cm [facility] Body weight 2017-03-23 17:12:00 72.576 kg [facility] BMI 2017-03-23 17:12:00 23.63 kg/m2 [facility] BP Systolic 2023-10-06 14:16:00 130 mm[Hg] Step hen F Renny BP Diastolic 2023-10-06 14:16:00 85 mm[Hg] Daren phen F Renny Weight Measured 2023-10-06 14:16:00 116.80 pounds [facility] F Renny Height Measured 2023-10-06 14:16:00 68.00 inches [facility]ng F Renny Body Temperature 2023-10-06 14:16:00 98.10 degrees [facility]vng F Renny Heart Rate 2023-10-06 14:16:00 119.00 /min [facility] Respiratory Rate 2023-10-06 14:16:00 18.00 /min Kvng F Renny BP Systolic 2023-09-14 11:32:00 144 mm[Hg] Step hen F Renny BP Diastolic 2023-09-14 11:32:00 80 mm[Hg] Daren phen F Renny Weight Measured 2023-09-14 11:32:00 129.00 pounds Kvng F Renny Height Measured 2023-09-14 11:32:00 68.00 inches Kvng F Renny Body Temperature 2023-09-14 11:32:00 98.40 degrees Kvng F Renny Heart Rate 2023-09-14 11:32:00 91.00 /min Marivel en F Renny Respiratory Rate 2023-09-14 11:32:00 18.00 /min Kvng F Renny BP Systolic 2023-08-31 15:14:00 136 mm[Hg] Step hen F Renny BP Diastolic 2023-08-31 15:14:00 86 mm[Hg] Daren phen F Renny Weight Measured 2023-08-31 15:14:00 122.40 pounds Kvng F Renny Height Measured 2023-08-31 15:14:00 68.00 inches Kvng F Renny Body Temperature 2023-08-31 15:14:00 98.40 degrees Kvng F Renny Heart Rate 2023-08-31 15:14:00 102.00 /min Step hen F Renny Respiratory Rate 2023-08-31 15:14:00 Kvng F Renny BP Systolic 2023-07-20 14:27:00 162 mm[Hg] Step hen F Renny BP Diastolic 2023-07-20 14:27:00 91 mm[Hg] Daren phen F Renny Weight Measured 2023-07-20 14:27:00 130.60 pounds Kvng F Renny Height Measured 2023-07-20 14:27:00 68.00 inches Kvng F Renny Body Temperature 2023-07-20 14:27:00 97.40 degrees Kvng F Renny Heart Rate 2023-07-20 14:27:00 95.00 /min Marivel en F Renny Respiratory Rate 2023-07-20 14:27:00 Kvng F Renny BP Systolic 2023-04-14 10:42:00 128 mm[Hg] Step hen F Renny BP Diastolic 2023-04-14 10:42:00 76 mm[Hg] Daren phen F Renny Weight Measured 2023-04-14 10:42:00 125.00 pounds Kvng F Renny Height Measured 2023-04-14 10:42:00 68.00 inches Kvng F Renny Body Temperature 2023-04-14 10:42:00 98.40 degrees Kvng F Renny Heart Rate 2023-04-14 10:42:00 80.00 /min Marivel en F Renny Respiratory Rate 2023-04-14 10:42:00 Kvng F Renny BP Systolic 2023-03-29 16:16:00 168 mm[Hg] Step hen F Renny BP Diastolic 2023-03-29 16:16:00 101 mm[Hg] Daren phen F Renny Weight Measured 2023-03-29 16:16:00 126.40 pounds Kvng F Renny Height Measured 2023-03-29 16:16:00 68.00 inches Kvng F Renny Body Temperature 2023-03-29 16:16:00 98.40 degrees Kvng F Renny Heart Rate 2023-03-29 16:16:00 96.00 /min Marivel en F Renny Respiratory Rate 2023-03-29 16:16:00 Kvng F Renny BP Systolic 2023-03-15 10:35:00 129 mm[Hg] Step hen F Renny BP Diastolic 2023-03-15 10:35:00 79 mm[Hg] Daren phen F Renny Weight Measured 2023-03-15 10:35:00 127.00 pounds Kvng F Renny Height Measured 2023-03-15 10:35:00 68.00 inches Knvg F Renny Body Temperature 2023-03-15 10:35:00 98.40 degrees Kvng F Renny Heart Rate 2023-03-15 10:35:00 92.00 /min Marivel en F Renny Respiratory Rate 2023-03-15 10:35:00 Kvng F Renny BP Systolic 2023-02-02 15:44:00 120 mm[Hg] Step hen F Renny BP Diastolic 2023-02-02 15:44:00 78 mm[Hg] Daren phen F Renny Weight Measured 2023-02-02 15:44:00 116.00 pounds Kvng F Renny Height Measured 2023-02-02 15:44:00 68.00 inches Kvng F Renny Body Temperature 2023-02-02 15:44:00 98.60 degrees Kvng F Renny Heart Rate 2023-02-02 15:44:00 110.00 /min Step hen F Renny Respiratory Rate 2023-02-02 15:44:00 Kvng F Renny BP Systolic 2023-01-22 10:11:00 188 mm[Hg] Step hen F Renny BP Diastolic 2023-01-22 10:11:00 113 mm[Hg] Daren phen F Renny Weight Measured 2023-01-22 10:11:00 111.40 pounds Kvng F Renny Height Measured 2023-01-22 10:11:00 68.00 inches Kvng F Renny Body Temperature 2023-01-22 10:11:00 98.60 degrees Kvng F Renny Heart Rate 2023-01-22 10:11:00 112.00 /min Step hen F Rneny Respiratory Rate 2023-01-22 10:11:00 Kvng F Renny BP Systolic 2023-01-14 16:38:00 187 mm[Hg] Step hen F Renny BP Diastolic 2023-01-14 16:38:00 86 mm[Hg] Daren phen F Renny Weight Measured 2023-01-14 16:38:00 123.60 pounds Kvng F Renny Height Measured 2023-01-14 16:38:00 68.00 inches Kvng F Renny Body Temperature 2023-01-14 16:38:00 98.30 degrees Kvng F Renny Heart Rate 2023-01-14 16:38:00 75.00 /min Marivel Lawson Respiratory Rate 2023-01-14 16:38:00 Kvng Lawson BP Systolic 2022-02-04 14:00:00 117 mm[Hg] BP Diastolic 2022-02-04 14:00:00 69 mm[Hg] Weight Measured 2022-02-04 14:00:00 132.00 pounds Height Measured 2022-02-04 14:00:00 68.00 inches Body Temperature 2022-02-04 14:00:00 97.30 degrees Heart Rate 2022-02-04 14:00:00 88.00 /min Respiratory Rate 2022-02-04 14:00:00 BP Systolic 2021-08-04 15:29:00 144 mm[Hg] BP Diastolic 2021-08-04 15:29:00 79 mm[Hg] Weight Measured 2021-08-04 15:29:00 135.00 pounds Height Measured 2021-08-04 15:29:00 68.00 inches Body Temperature 2021-08-04 15:29:00 98.00 degrees Heart Rate 2021-08-04 15:29:00 72.00 /min Respiratory Rate 2021-08-04 15:29:00 BP Systolic 2021-06-15 11:22:00 134 mm[Hg] BP Diastolic 2021-06-15 11:22:00 81 mm[Hg] Weight Measured 2021-06-15 11:22:00 134.20 pounds Height Measured 2021-06-15 11:22:00 68.00 inches Body Temperature 2021-06-15 11:22:00 98.00 degrees Heart Rate 2021-06-15 11:22:00 64.00 /min Respiratory Rate 2021-06-15 11:22:00 BP Systolic 2021-04-30 17:06:00 107 mm[Hg] BP Diastolic 2021-04-30 17:06:00 54 mm[Hg] Weight Measured 2021-04-30 17:06:00 136.80 pounds Height Measured 2021-04-30 17:06:00 68.00 inches Body Temperature 2021-04-30 17:06:00 97.60 degrees Heart Rate 2021-04-30 17:06:00 74.00 /min Respiratory Rate 2021-04-30 17:06:00 BP Systolic 2021-04-24 14:43:00 131 mm[Hg] BP Diastolic 2021-04-24 14:43:00 82 mm[Hg] Weight Measured 2021-04-24 14:43:00 133.00 pounds Height Measured 2021-04-24 14:43:00 68.00 inches Body Temperature 2021-04-24 14:43:00 98.30 degrees Heart Rate 2021-04-24 14:43:00 81.00 /min Respiratory Rate 2021-04-24 14:43:00 BP Systolic 2020-08-12 08:33:00 101 mm[Hg] BP Diastolic 2020-08-12 08:33:00 64 mm[Hg] Weight Measured 2020-08-12 08:33:00 139.60 pounds Height Measured 2020-08-12 08:33:00 68.00 inches Body Temperature 2020-08-12 08:33:00 98.10 degrees Heart Rate 2020-08-12 08:33:00 62.00 /min Respiratory Rate 2020-08-12 08:33:00 BP Systolic 2020-06-10 17:11:00 127 mm[Hg] BP Diastolic 2020-06-10 17:11:00 73 mm[Hg] Weight Measured 2020-06-10 17:11:00 139.60 pounds Height Measured 2020-06-10 17:11:00 68.00 inches Body Temperature 2020-06-10 17:11:00 98.40 degrees Heart Rate 2020-06-10 17:11:00 70.00 /min Respiratory Rate 2020-06-10 17:11:00 BP Systolic 2019-12-26 10:25:00 BP Diastolic 2019-12-26 10:25:00 Weight Measured 2019-12-26 10:25:00 145.00 pounds Height Measured 2019-12-26 10:25:00 68.00 inches Body Temperature 2019-12-26 10:25:00 Heart Rate 2019-12-26 10:25:00 Respiratory Rate 2019-12-26 10:25:00 BP Systolic 2019-10-30 15:46:00 139 mm[Hg] BP Diastolic 2019-10-30 15:46:00 73 mm[Hg] Weight Measured 2019-10-30 15:46:00 145.00 pounds Height Measured 2019-10-30 15:46:00 68.00 inches Body Temperature 2019-10-30 15:46:00 97.40 degrees Heart Rate 2019-10-30 15:46:00 70.00 /min Respiratory Rate 2019-10-30 15:46:00 BP Systolic 2019-09-25 10:16:00 140 mm[Hg] BP Diastolic 2019-09-25 10:16:00 78 mm[Hg] Weight Measured 2019-09-25 10:16:00 147.00 pounds Height Measured 2019-09-25 10:16:00 68.00 inches Body Temperature 2019-09-25 10:16:00 Heart Rate 2019-09-25 10:16:00 75.00 /min Respiratory Rate 2019-09-25 10:16:00 BP Systolic 2019-06-27 09:41:00 132 mm[Hg] BP Diastolic 2019-06-27 09:41:00 78 mm[Hg] Weight Measured 2019-06-27 09:41:00 148.00 pounds Height Measured 2019-06-27 09:41:00 68.00 inches Body Temperature 2019-06-27 09:41:00 97.60 degrees Heart Rate 2019-06-27 09:41:00 70.00 /min Respiratory Rate 2019-06-27 09:41:00 Procedures Procedure Date / Time Performed Performing Clinician Source REFERRAL- REQUEST/RESPONSE 2023-04-15 06:01:00 Doctor Unassigned, [place] [facility] POCT GLUCOSE (AUTOMATED) 2023-03-29 17:36:00 Lyndon Thomas [facility] POCT GLUCOSE (AUTOMATED) 2023-03-29 13:34:00 Lyndon Thomas [facility] POCT GLUCOSE (AUTOMATED) 2023-03-29 09:30:00 Lyndon Thomas [facility] MAGNESIUM 2023-03-29 07:26:00 [facility] BASIC METABOLIC PANEL (NA, K, CL, CO2, GLUCOSE, BUN, CREATININE, CA) 2023-03-29 07:26:00 Edison Hickman [facility] CBC WITH DIFF 2023-03-29 07:26:00 Edison Hickman [facility] POCT GLUCOSE (AUTOMATED) 2023-03-29 01:53:00 Lyndon Thomas [facility] POCT GLUCOSE (AUTOMATED) 2023-03-28 22:28:00 Lyndon Thomas [facility] POCT GLUCOSE (AUTOMATED) 2023-03-28 17:31:00 Lyndon Thomas [facility] POCT GLUCOSE (AUTOMATED) 2023-03-28 13:32:00 Lyndon Thomas [facility] POCT GLUCOSE (AUTOMATED) 2023-03-28 10:20:00 Lyndon Thomas [facility] MAGNESIUM 2023-03-28 10:08:00 Shikha Thomas [facility] POCT GLUCOSE (AUTOMATED) 2023-03-28 06:09:00 Lyndon Thomas [facility] VANCOMYCIN TROUGH 2023-03-28 02:18:00 [facility] ([facility]) 2023-03-28 01:58:00 Lyndon Thomas [facility] POCT GLUCOSE (AUTOMATED) 2023-03-27 22:13:00 Lyndon Thomas [facility] POCT GLUCOSE (AUTOMATED) 2023-03-27 17:09:00 Lyndon Thomas [facility] POCT GLUCOSE (AUTOMATED) 2023-03-27 13:37:00 Lyndon Thomas [facility] MAGNESIUM 2023-03-27 10:19:00 Shihka Thomas [facility] C-REACTIVE PROTEIN 2023-03-27 10:19:00 [facility]OLIC PANEL (NA, K, CL, CO2, GLUCOSE, BUN, CREATININE, CA) 2023-03-27 10:19:00 Edison Hickman [facility] SEDIMENTATION RATE 2023-03-27 10:19:00 Edison Hickman [facility] CBC WITH DIFF 2023-03-27 10:19:00 Edison Hickman [facility] POCT GLUCOSE (AUTOMATED) 2023-03-27 10:18:00 Lyndon Thomas [facility] POCT GLUCOSE (AUTOMATED) 2023-03-26 22:24:00 Lyndon Thomas [facility] POCT GLUCOSE (AUTOMATED) 2023-03-26 17:03:00 Lyndon Thomas [facility] POCT GLUCOSE (AUTOMATED) 2023-03-26 14:00:00 Lyndon Thomas [facility] POCT GLUCOSE (AUTOMATED) 2023-03-26 10:33:00 Lynodn Thomas [facility] MAGNESIUM 2023-03-26 10:18:00 Shikha Thomas [facility] BASIC METABOLIC PANEL (NA, K, CL, CO2, GLUCOSE, BUN, CREATININE, CA) 2023-03-26 10:18:00 Edison Hickman [facility] CBC WITH DIFF 2023-03-26 10:18:00 Edison Hickman [facility] POCT GLUCOSE (AUTOMATED) 2023-03-26 06:17:00 Lyndon Thomas [facility] POCT GLUCOSE (AUTOMATED) 2023-03-26 02:59:00 Lyndon Thomas [facility] VANCOMYCIN TROUGH 2023-03-26 02:14:00 Edison Hickman [facility] POCT GLUCOSE (AUTOMATED) 2023-03-25 22:22:00 Lyndon Thomas [facility] POCT GLUCOSE (AUTOMATED) 2023-03-25 17:10:00 Lyndon Thomas [facility] POCT GLUCOSE (AUTOMATED) 2023-03-25 13:53:00 Lyndon Thomas [facility] ACUTE CARE ARTERIAL BLOOD GAS 2023-03-25 12:47:00 Shikha Thomas [facility] POCT GLUCOSE (AUTOMATED) 2023-03-25 10:32:00 Lyndon Thomas [facility] PHOSPHORUS 2023-03-25 10:04:00 Edison Hickman [facility] sity [facility] MAGNESIUM 2023-03-25 10:04:00 Shikha Thomas [facility] BASIC METABOLIC PANEL (NA, K, CL, CO2, GLUCOSE, BUN, CREATININE, CA) 2023-03-25 10:04:00 Edison Hickman [facility] CBC WITH DIFF 2023-03-25 10:04:00 Marylou Edison [facility] POCT GLUCOSE (AUTOMATED) 2023-03-25 06:15:00 Lyndon Thomas [facility] POCT GLUCOSE (AUTOMATED) 2023-03-25 02:33:00 Lyndon Thomas [facility] POCT GLUCOSE (AUTOMATED) 2023-03-24 22:34:00 Lyndon Thomas [facility] XR ABDOMEN 1 VW 2023-03-24 16:45:27 Edison Hickman [facility] POCT GLUCOSE (AUTOMATED) 2023-03-24 16:35:00 Lyndon Thomas [facility] XR ABDOMEN 1 VW 2023-03-24 16:04:00 Edison Hickman [facility] MAGNESIUM 2023-03-24 09:49:00 Shikha Thomas [facility] HEPATIC FUNCTION PANEL (23463) (ALB,T.PRO,BILI T,BU/BC,ALT,AST,ALK PHOS) 2023-03-24 09:49:00 Shikha Thomas [facility] BASIC METABOLIC PANEL (NA, K, CL, CO2, GLUCOSE, BUN, CREATININE, CA) 2023-03-24 09:49:00 Shikha Thomas [facility] ACUTE CARE ARTERIAL BLOOD GAS 2023-03-24 09:49:00 Shikha Thomas [facility] CBC WITH DIFF 2023-03-24 09:49:00 Shikha [facility] [place] LACTIC ACID WHOLE BLOOD 2023-03-24 09:49:00 Nu Thomas mmad [facility] [place] INTUBATION ENDOTRACHEAL EMERGENCY PROCEDURE 2023-03-24 03:33:47 Katty Dawson [facility] XR CHEST 1 VW 2023-03-24 02:44:00 Katty Dawson [facility] XR FOOT 3+ VW LEFT 2023-03-24 02:44:00 Katty Dawson [facility] AC PANEL 20 + LACTIC ACID 2023-03-24 02:41:00 Katty Dawson [facility] CT HEAD WO CONTRAST 2023-03-24 02:31:03 Katty Dawson [facility] ASSIGNMENT OF BENEFITS 2023-03-24 02:22:20 Docto r Unassigned, [place] [facility] CONSENT/REFUSAL FOR DIAGNOSIS AND TREATMENT 2023-03-24 02:21:39 Doctor Unassigned, [place] [facility] XR CHEST 1 VW 2023-03-24 02:11:52 Katty Dawson [facility] SALICYLATE 2023-03-24 02:11:00 Katty Dawson [facility] ETHANOL 2023-03-24 02:11:00 Katty Dawson [facility] BLOOD CULTURE SCREEN 2023-03-24 01:27:00 Mitul Dawson i [facility] CREATINE KINASE 2023-03-24 01:27:00 [facility] 2023-03-24 01:27:00 Katty Dawson [facility] COMP. METABOLIC PANEL (41891) 2023-03-24 01:27:00 Katty Dawson [facility] URINE DRUG (IMMUNOASSAY) - COMPREHENSIVE DRUG SCREEN 2023-03-24 01:27:00 Katty Dawson [facility] CBC WITH DIFF 2023-03-24 01:27:00 Katty Dawson [facility] PROTHROMBIN TIME / INR 2023-03-24 01:27:00 Alina Dawson [facility] URINALYSIS 2023-03-24 01:27:00 Katty Dawson [facility] RAPID INFLUENZA A/B 2023-03-24 01:27:00 Katty Dawson [facility] COVID-19 (ID NOW RAPID TESTING) 2023-03-24 01:27:00 Katty Dawson [facility] LAB ONLY COVID INTERPRETATION 2023-03-24 01:27:00 Katty Dawson [facility] POCT GLUCOSE(AGE >30DAYS) 2023-03-24 01:11:00 Katty Dawson [facility] HB ECG ROUTINE & RHYTHM STRIP 2023-03-24 01:10:10 Katty Dawson [facility] POCT GLUCOSE (AUTOMATED) 2023-03-24 01:09:00 Doc tor Unassigned, [place] [facility] [id number] Arterial Mar Yalice Single Level 2022-12-02 00:00:00 Kvng Lawson [address] Duplex Scan Of Lower Extremity Arteries Or Arterial Bypass Grafts; Complete Bilateral Study 2022-12-02 00:00:00 Kvng Lawson ASSIGNMENT OF BENEFITS 2022-08-24 14:25:20 Docto r Unassigned, [place] [facility] XR CERVICAL SPINE 2 VW 2020-08-18 18:56:41 Renny Peterson [facility] XR WRIST 3+ VW LEFT 2020-08-18 18:56:41 Hortencia Peterson [facility] EKG-12 LEAD 2017-03-23 17:48:04 Kierra Amin [facility] Plan of Care Planned Activity Planned Date Details Comments Source Goal Plan of Care Note [code = 27550-2] Goal Plan of Care Note [code = 64589-2] Goal Plan of Care Note [code = 21170-0] Goal Plan of Care Note [code = 90597-6] Goal Plan of Care Note [code = 26840-5] Goal Plan of Care Note [code = 90704-6] Goal Plan of Care Note [code = 85790-9] Goal Plan of Care Note [code = 73992-8] Goal Plan of Care Note [code = 39400-2] Goal Plan of Care Note [code = 44705-7] Goal Plan of Care Note [code = 03163-0] Goal Plan of Care Note [code = 27473-5] Goal Plan of Care Note [code = 41857-0] Goal Plan of Care Note [code = 22560-3] Goal Plan of Care Note [code = 64771-0] Goal Plan of Care Note [code = 67544-1] Goal Plan of Care Note [code = 22837-5] Goal Plan of Care Note [code = 40240-7] Goal Plan of Care Note [code = 50296-4] Goal Plan of Care Note [code = 11005-7] Goal Plan of Care Note [code = 94619-2] Goal Plan of Care Note [code = 98852-9] Goal Plan of Care Note [code = 60137-1] Goal Plan of Care Note [code = 21524-0] Goal Plan of Care Note [code = 81674-7] Goal Plan of Care Note [code = 27488-7] Goal Plan of Care Note [code = 59234-3] Goal Plan of Care Note [code = 10294-5] Goal Plan of Care Note [code = 43833-4] Goal Plan of Care Note [code = 22393-3] Goal Plan of Care Note [code = 28072-6] Goal Plan of Care Note [code = 25211-1] Goal Plan of Care Note [code = 17287-6] Goal Plan of Care Note [code = 28532-0] Goal Plan of Care Note [code = 65477-7] Goal Plan of Care Note [code = 36990-1] Goal Plan of Care Note [code = 73596-0] Goal Plan of Care Note [code = 85805-3] Goal Plan of Care Note [code = 44948-3] Goal Plan of Care Note [code = 11002-8] Goal Plan of Care Note [code = 61166-0] Goal Plan of Care Note [code = 27566-3] Goal Plan of Care Note [code = 11856-8] Goal Plan of Care Note [code = 43438-7] Goal Plan of Care Note [code = 61357-9] Goal Plan of Care Note [code = 19829-2] Goal Plan of Care Note [code = 39190-5] Goal Plan of Care Note [code = 59710-5] Goal Plan of Care Note [code = 31099-2] Goal Plan of Care Note [code = 09862-3] Goal Plan of Care Note [code = 26665-9] Goal Plan of Care Note [code = 89462-6] Goal Plan of Care Note [code = 65323-6] Goal Plan of Care Note [code = 98770-5] Goal Plan of Care Note [code = 10139-2] Goal Plan of Care Note [code = 67442-0] Goal Plan of Care Note [code = 60033-5] Goal Plan of Care Note [code = 63143-9] Goal Plan of Care Note [code = 75883-5] Goal Plan of Care Note [code = 67780-7] Goal Plan of Care Note [code = 55209-7] Goal Plan of Care Note [code = 89215-7] Goal Plan of Care Note [code = 69142-6] Goal Plan of Care Note [code = 78917-8] Goal Plan of Care Note [code = 53655-3] Goal Plan of Care Note [code = 59410-7] Goal Plan of Care Note [code = 71280-5] Goal Plan of Care Note [code = 74097-2] Goal Plan of Care Note [code = 18684-4] Goal Plan of Care Note [code = 39314-2] Goal Plan of Care Note [code = 48707-8] Goal Plan of Care Note [code = 73847-4] Goal Plan of Care Note [code = 97643-6] Goal Plan of Care Note [code = 09492-7] Goal Plan of Care Note [code = 84624-7] Goal Plan of Care Note [code = 56853-8] Goal Plan of Care Note [code = 62046-7] Goal Plan of Care Note [code = 00384-4] Goal Plan of Care Note [code = 73079-2] Goal Plan of Care Note [code = 82530-1] Goal Plan of Care Note [code = 70714-2] Goal Plan of Care Note [code = 46601-2] Goal Plan of Care Note [code = 44039-0] Goal Plan of Care Note [code = 38556-5] Encounters Start Date/Time End Date/Time Encounter Type Admission Type Attending [facility] Facility Care Department Encounter ID Source 2021-03-15 12:31:11 Outpatient [facility] [id number] 2024-02-07 09:15:02 2024-02-07 09:15:02 Outpatient SFA [id number] Kvng Lawson 2024-01-25 11:20:10 2024-01-25 11:20:10 Outpatient SFA [id number] Kvng Lawson 2023-10-06 15:37:42 2023-10-06 15:37:42 Outpatient SFA [id number] Kvng Lawson 2023-10-06 00:00:00 2023-10-06 00:00:00 Outpatient Visit SFA [id number] Kvng Lawson 2023-09-14 11:27:04 2023-09-14 11:27:04 Outpatient SFA [id number] Kvng Lawson 2023-09-14 00:00:00 2023-09-14 00:00:00 Outpatient Visit SFA [id number] Kvng Lawson 2023-08-31 15:02:55 2023-08-31 15:02:55 Outpatient SFA [id number] Kvng Pozo Renny 2023-08-31 00:00:00 2023-08-31 00:00:00 Outpatient Visit SFA [id number] Kvng Pozo Renny 2023-07-20 14:26:25 2023-07-20 14:26:25 Outpatient SFA SFA [id number] Kvnghemalatha Lawson 2023-07-01 14:00:00 2023-07-01 14:00:00 Outpatient R GREGORY ARRIAGA [facility] [id number] [facility] 2023-04-21 00:00:00 2023-04-21 00:00:00 Patient Secure Msg Doctor Unassigned, [place] [facility] 1.2.840.114 350.1.13.10 4.2.7.2.686 [id number] [facility] 2023-04-15 00:00:00 2023-04-15 00:00:00 Orders Only Doctor Unassigned, [place] [facility] 1.2.840.114 350.1.13.10 4.2.7.2.686 [id number] [facility] 2023-04-14 10:42:16 2023-04-14 10:42:16 Outpatient [facility] [id number] Kvng Lawson 2023-03-30 00:00:00 2023-03-30 00:00:00 Transition of Care Yamilet Morel [facility] 1.2.840.114 350.1.13.10 4.2.7.2.686 [id number] [facility] 2023-03-30 00:00:00 2023-03-30 00:00:00 Patient Secure Msg Doctor Unassigned, [place] [facility] 1.2.840.114 350.1.13.10 4.2.7.2.686 [id number] [facility] 2023-03-29 16:14:09 2023-03-29 16:14:09 Outpatient SFA [id number] Kvng Lawson 2023-03-23 19:11:00 2023-03-29 13:40:00 Inpatient SHIKHA ASIF [facility] [id number] [facility] 2023-03-23 19:11:00 2023-03-29 13:40:00 Hospital Encounter YaKatty ruff [facility] 1.2.840.114 350.1.13.10 4.2.7.2.686 [id number] [facility] 2023-03-15 10:34:39 2023-03-15 10:34:39 Outpatient SFA SFA [id number] Kvng Lawson 2023-02-22 09:57:07 2023-02-22 09:57:07 Outpatient SFA SFA [id number] Kvng Pozo Renny 2023-02-08 13:36:35 2023-02-08 13:36:35 Outpatient SFA SFA [id number] Kvng Pozo Renny 2023-02-02 15:39:15 2023-02-02 15:39:15 Outpatient SFA SFA [id number] Kvng Pozo [place] 2023-01-29 04:58:00 2023-01-29 04:58:00 Outpatient Shelbie Dnig [facility] [id number] [facility] 2023-01-22 10:05:35 2023-01-22 10:05:35 Outpatient SFA SFA [id number] Kvng Pozo [place] 2023-01-14 16:42:59 2023-01-14 16:42:59 Outpatient SFA SFA [id number] Kvng [place] 2023-01-12 10:01:09 2023-01-12 10:01:09 Outpatient SFA SFA [id number] Kvng [place] 2022-12-22 12:00:35 2022-12-22 12:00:35 Outpatient SFA SFA [id number] Kvng [place] 2022-12-08 16:22:19 2022-12-08 16:22:19 Outpatient SFA SFA [id number] Kvng [place]ozo [place] 2022-12-02 11:03:26 2022-12-02 11:03:26 Outpatient SFA SFA [id number] Kvng [place] 2022-12-01 13:18:25 2022-12-01 13:18:25 Outpatient SFA SFA [id number] Kvng Lawson 2022-11-30 14:09:15 2022-11-30 14:09:15 Outpatient SFA [id number] Kvng Lawson 2022-11-29 11:25:47 2022-11-29 11:25:47 Outpatient SFA [id number] Kvng Lawson 2022-08-24 10:30:00 2022-08-24 10:45:00 Release Coordinator Visit Pob, Adc Lab Main [facility] 1.2.840.114 350.1.13.10 4.2.7.2.686 [id number] [facility] 2022-08-24 10:30:00 2022-08-24 10:30:00 Outpatient LEVI SLOAN [facility] [id number] [facility] 2022-08-24 00:00:00 2022-08-24 00:00:00 Orders Only Doctor Unassigned, [place] [facility] 1.2.840.114 350.1.13.10 4.2.7.2.686 [id number] [facility] 2022-05-05 09:13:44 2022-05-05 09:13:44 Outpatient [facility] [id number] Kvng Lawson 2022-02-04 00:00:00 2022-02-04 00:00:00 Outpatient Visit [id number] 2022-02-02 00:00:00 2022-02-02 00:00:00 Outpatient Visit [id number] 2021-11-19 00:00:00 2021-11-19 00:00:00 Outpatient Visit [id number] 2020-09-01 00:00:00 2020-09-01 00:00:00 Outpatient R JUAN C LANG [facility] [id number] [facility] 2020-08-26 00:00:00 2020-08-26 00:00:00 Patient Secure Msg NashjoseJuan C [facility] 1..840.114 350.1.13.10 4.2.7.2.686 [id number] [facility] 2020-08-25 11:04:18 2020-08-25 12:21:58 Office Visit Rickey Juan C [facility] 1.2.840.114 350.1.13.10 4.2.7.2.686 [id number] [facility] 2020-08-25 11:10:00 2020-08-25 11:10:00 Outpatient R RICKEY JUAN C [facility] [id number] [facility] 2020-08-25 00:00:00 2020-08-25 00:00:00 Patient Secure Msg Doctor Unassigned, [place] [facility] 1..840.114 350.1.13.10 4.2.7.2.686 [id number] [facility] 2020-08-18 13:46:00 2020-08-18 23:59:00 Hospital Encounter NashjoseJuan C [facility] 1.2.840.114 350.1.13.10 4.2.7.2.686 [id number] [facility] 2020-08-18 13:29:29 2020-08-18 14:41:42 Office Visit Juan C Lang [facility] 1.2840.114 350.1.13.10 4.2.7.2.686 [id number] [facility] 2020-08-18 13:30:00 2020-08-18 13:30:00 Outpatient JUAN C BIRCH [facility] [id number] [facility] 2020-08-13 00:00:00 2020-08-13 00:00:00 Patient Secure Msg Juan C Lang [facility] 1.2840.114 350.1.13.10 4.2.7.2.686 [id number] [facility] 2020-08-07 10:20:00 2020-08-07 10:20:00 Outpatient FAROOQ KNOX [facility] [id number] [facility] 2020-08-05 09:20:00 2020-08-05 09:20:00 Outpatient FAROOQ KNOX [facility] [id number] [facility] 2020-08-05 00:00:00 2020-08-05 00:00:00 Patient Outreach Anthony Vick Krzysztof [facility] 1.2840.114 350.1.13.10 4.2.7.2.686 [id number] [facility] 2020-08-05 00:00:00 2020-08-05 00:00:00 Telephone Nubia Rodas [facility] fatimah [place] 1.2840.114 350.1.13.10 4.2.7.2.686 [id number] [facility] 2020-07-14 13:29:59 2020-07-14 14:23:36 Office Visit Nubia Rodas Brett S [facility] fatimah [place] 1.2840.114 350.1.13.10 4.2.7.2.686 [id number] [facility] 2020-07-14 13:45:00 2020-07-14 13:45:00 Outpatient ALEXA TAYLOR [facility] [id number] [facility] 2020-06-18 16:02:24 2020-06-18 16:25:35 Office Visit Alexa Martinez Craig L [facility] Surgical Specialti fatimha [place] 1.2.840.114 350.1.13.10 4.2.7.2.686 [id number] [facility] 2020-06-18 16:15:00 2020-06-18 16:15:00 Outpatient NUBIA GARCIA [facility] [id number] [facility] 2017-03-23 13:00:00 2017-03-23 16:31:47 [facility] [id number] [id number] 4.2.7.2.686 [id number] [facility] Results Test Description Test Time Test Comments Results Result Co mments Source [facility] [place] [place]HEMO[place] [id number] 00:00:00* Test Item Value Reference Range Interpretation Comme nts HEMOGLOBIN A1c (test code = 20681) 9.4 % [facility] AustinHEMOGLOBIN [id number] 00:00:00* Test Item Value Reference Range Interpretation Comme nts HEMOGLOBIN A1c (test code = 75933) 9.4 % [facility] [place] AustinLIPID [id number] 06:12:37* Test Item Value Reference Range Interpretation Comme nts CHOLESTEROL (test code = 2210) 141 MG/DL <200 TRIGLYCERIDES (test code = 2232) 124 MG/DL <150 HDL CHOLESTEROL (test code = 2220) 47 MG/DL >39 CALC LDL CHOL (test code = 2237) 73 MG/DL <100 NOTE: CALCULATED LDL IS BASED ON ASH-WHYTE METHOD WHICHINCLUDES ADJUSTABLE TRIGLYCERIDE:VLDL CHOLESTEROL RATIO.THIS FACTOR VARIES BY MEASURED TRIGLYCERIDE AND NON-HDLCHOLESTEROL CONCENTRATIONS WITH INCREASED CALCULATED LDL SEENIN HIGHER TRIGLYCERIDE OR LOWER NON-HDL SPECIMENS. FOR MOREINFORMATION, SEE CLIENT ANNOUNCEMENT AT [email or web address] [email or web address] RATIO LDL/HDL (test code = 2237) 1.55 RATIO <3.55 COMPREHENSIVE METABOLIC [id number] 06:12:37* Test Item Value Reference Range Interpretation Comme nts GLUCOSE (test code = 2216) 304 MG/DL 70-99 H BUN (test code = 2207) 20 MG/DL 8-23 CREATININE (test code = 2213) 1.36 MG/DL 0.80-1.40 eGFR (2020 CKD-EPI) (test code = 85416) 58 ML/MIN/1.73 >60 L The NKF-ASN Taskforce recommends use of Cystatin C to confirm eGFR inadults at risk for CKD. [facility] offers eGFR with Cystatin C-Creatinineusing the 2020 CKD-EPI eGFR_creat-cystat equation (order code 3057) toincrease the accuracy of estimated GFR. For more information, contactyour account collector or see announcement [email or web address] CALC BUN/CREAT (test code = 2234) 15 RATIO 6-28 SODIUM (test code = 2230) 139 MEQ/L 133-146 POTASSIUM (test code = 8) 5.0 MEQ/L 3.5-5.4 CHLORIDE (test code = 2214) 98 MEQ/L 95-107 CARBON DIOXIDE (test code = 6) 28 MEQ/L 19-31 CALCIUM (test code = 220) 9.4 MG/DL 8.5-10.5 PROTEIN, TOTAL (test code = 2228) 6.7 G/DL 6.1-8.3 ALBUMIN (test code = 2200) 4.4 G/DL 3.5-5.2 CALC GLOBULIN (test code = 2240) 2.3 G/DL 1.9-3.7 CALC A/G RATIO (test code = 223) 1.9 RATIO 1.0-2.6 BILIRUBIN, TOTAL (test code = 2206) <0.2 MG/DL <=1.2 ALKALINE PHOSPHATASE (test code = 2203) 145 U/L 40-123 H AST (test code = 8) 13 U/L 9-50 ALT (test code = 221) 20 U/L 5-50 ALBUMIN/CREATININE RATIO, URINE, [id number] 04:30:42* Test Item Value Reference Range Interpretation Comme nts CREATININE, URINE, CONC. (test code = 2072) 30.0 MG/DL NOT ESTAB ALBUMIN, URINE, RANDOM (test code = 15327) 0.9 MG/DL NOT ESTAB CALC ALBUMIN/CREAT, RND (test code = 24877) 30 MG/G <30 H Note: Albumin/Cr eatinine ratio reference interval reflects ADA and NKF guidelines. UNLESS OTHERWISE INDICATED, ALL TESTING PERFORMED AT CLINICAL PATHOLOGY [employer] [address] [place] [address] ALTERATION MANAGER: SCOTT VANG M.D. [place] NUMBER [id number] [place]. [id number] HEMOGLOBIN [id number] 02:51:06* Test Item Value Reference Range Interpretation Comme nts HEMOGLOBIN A1c (test code = 71510) 8.9 % 4.2-5.6 H [employer] GUIDELINES FOR HGB A1C: PREDIABETES/INCREASED RISK . . . . . . . 5.7-6.4% DIAGNOSIS OF DIABETES . . . . . . . . . >=6.5% WITH CONFIRMATION OR APPROPRIATE SYMPTOMS NOTE: ASSAY MAY BE AFFECTED BY HEMOGLOBINOPATHIES (SICKLE CELL ANEMIA, S-C DISEASE, OTHERS) OR ARTIFICIALLY LOWERED BY DECREASED RED CELL SURVIVAL (HEMOLYTIC ANEMIAS, BLOOD LOSS, ETC.). CONSIDER ALTERNATE TESTING OR LABORATORY CONSULTATION. LIPID [id number] 00:00:00* Test Item Value Reference Range Interpretation Comme nts CHOLESTEROL (test code = 2210) 141 MG/DL TRIGLYCERIDES (test code = 2232) 124 MG/DL HDL CHOLESTEROL (test code = 2220) 47 MG/DL CALC LDL CHOL (test code = 2237) 73 MG/DL RISK RATIO LDL/HDL (test cod e = 2238) 1.55 RATIO Kvng Sánchez RennyCOMPREHENSIVE METABOLIC [id number] 00:00:00* Test Item Value Reference Range Interpretation Comme nts GLUCOSE (test code = 2217) 304 MG/DL BUN (test code = 2208) 20 MG/DL CREATININE (test code = 2214) 1.36 MG/DL eGFR (2020 CKD-EPI) (test co de = 88511) 58 ML/MIN/1.73 CALC BUN/CREAT (test code = 2235) 15 RATIO SODIUM (test code = 2231) 139 MEQ/L POTASSIUM (test code = 2228) 5.0 MEQ/L CHLORIDE (test code = 2215) 98 MEQ/L CARBON DIOXIDE (test code = 2206) 28 MEQ/L CALCIUM (test code = 2209) 9.4 MG/DL PROTEIN, TOTAL (test code = 2229) 6.7 G/DL ALBUMIN (test code = 220) 4.4 G/DL CALC GLOBULIN (test code = 2240) 2.3 G/DL CALC A/G RATIO (test code = 2234) 1.9 RATIO BILIRUBIN, TOTAL (test code = 2207) <0.2 MG/DL ALKALINE PHOSPHATASE (test code = 220) 145 U/L AST (test code = 221) 13 U/L ALT (test code = 2219) 20 U/L Kvng LawsonALBUMIN/CREATININE RATIO, RANDOM [id number] 00:00:00* Test Item Value Reference Range Interpretation Comme [facility] CREATININE, URINE, CONC. (te st code = 2072) 30.0 MG/DL ALBUMIN, URINE, RANDOM (test code = 75684) 0.9 MG/DL CALC ALBUMIN/CREAT, RND (portia t code = 43640) 30 MG/G Kvng LawsonHEMOGLOBIN [id number] 00:00:00* Test Item Value Reference Range Interpretation Comme [facility] HEMOGLOBIN A1c (test code = 79277) 8.9 % Kvng LawsonLIPID [id number] 00:00:00* Test Item Value Reference Range Interpretation Comme nts CHOLESTEROL (test code = 2210) 141 MG/DL TRIGLYCERIDES (test code = 2232) 124 MG/DL HDL CHOLESTEROL (test code = 2220) 47 MG/DL CALC LDL CHOL (test code = 2237) 73 MG/DL RISK RATIO LDL/HDL (test cod e = 2238) 1.55 RATIO Kvng LawsonCOMPREHENSIVE METABOLIC [id number] 00:00:00* Test Item Value Reference Range Interpretation Comme nts GLUCOSE (test code = 2217) 304 MG/DL BUN (test code = 2208) 20 MG/DL CREATININE (test code = 2214) 1.36 MG/DL eGFR (2020 CKD-EPI) (test co de = 95102) 58 ML/MIN/1.73 CALC BUN/CREAT (test code = 2235) 15 RATIO SODIUM (test code = 2231) 139 MEQ/L POTASSIUM (test code = 2228) 5.0 MEQ/L CHLORIDE (test code = 2215) 98 MEQ/L CARBON DIOXIDE (test code = 2206) 28 MEQ/L CALCIUM (test code = 2209) 9.4 MG/DL PROTEIN, TOTAL (test code = 2229) 6.7 G/DL ALBUMIN (test code = 220) 4.4 G/DL CALC GLOBULIN (test code = 2240) 2.3 G/DL CALC A/G RATIO (test code = 2234) 1.9 RATIO BILIRUBIN, TOTAL (test code = 2207) <0.2 MG/DL ALKALINE PHOSPHATASE (test code = 2204) 145 U/L AST (test code = 221) 13 U/L ALT (test code = 2219) 20 U/L Kvng LawsonALBUMIN/CREATININE RATIO, RANDOM [id number] 00:00:00* Test Item Value Reference Range Interpretation Comme nts CREATININE, URINE, CONC. (te st code = 2072) 30.0 MG/DL ALBUMIN, URINE, RANDOM (test code = 46209) 0.9 MG/DL CALC ALBUMIN/CREAT, RND (portia t code = 98440) 30 MG/G Kvng LawsonHEMOGLOBIN [id number] 00:00:00* Test Item Value Reference Range Interpretation Comme nts HEMOGLOBIN A1c (test code = 97130) 8.9 % Kvng LawsonLIPID [id number] 00:00:00* Test Item Value Reference Range Interpretation Comme nts CHOLESTEROL (test code = 2210) 141 MG/DL TRIGLYCERIDES (test code = 2232) 124 MG/DL HDL CHOLESTEROL (test code = 2220) 47 MG/DL CALC LDL CHOL (test code = 2237) 73 MG/DL RISK RATIO LDL/HDL (test cod e = 2238) 1.55 RATIO Kvng LawsonCOMPREHENSIVE METABOLIC [id number] 00:00:00* Test Item Value Reference Range Interpretation Comme nts GLUCOSE (test code = 2217) 304 MG/DL BUN (test code = 2208) 20 MG/DL CREATININE (test code = 2214) 1.36 MG/DL eGFR (2020 CKD-EPI) (test co de = 02519) 58 ML/MIN/1.73 CALC BUN/CREAT (test code = 2235) 15 RATIO SODIUM (test code = 2231) 139 MEQ/L POTASSIUM (test code = 2228) 5.0 MEQ/L CHLORIDE (test code = 2215) 98 MEQ/L CARBON DIOXIDE (test code = 2206) 28 MEQ/L CALCIUM (test code = 2209) 9.4 MG/DL PROTEIN, TOTAL (test code = 2229) 6.7 G/DL ALBUMIN (test code = 220) 4.4 G/DL CALC GLOBULIN (test code = 2240) 2.3 G/DL CALC A/G RATIO (test code = 2234) 1.9 RATIO BILIRUBIN, TOTAL (test code = 7) <0.2 MG/DL ALKALINE PHOSPHATASE (test code = 4) 145 U/L AST (test code = 2217) 13 U/L ALT (test code = 221) 20 U/L Kvng LawsonALBUMIN/CREATININE RATIO, RANDOM [id number] 00:00:00* Test Item Value Reference Range Interpretation Comme [facility] CREATININE, URINE, CONC. (te st code = 2072) 30.0 MG/DL ALBUMIN, URINE, RANDOM (test code = 34777) 0.9 MG/DL CALC ALBUMIN/CREAT, RND (portia t code = 95333) 30 MG/G Kvng LawsonHEMOGLOBIN [id number] 00:00:00* Test Item Value Reference Range Interpretation Comme [facility] HEMOGLOBIN A1c (test code = 45904) 8.9 % [facility] GLUCOSE (AUTOMATED)2023-03-29 17:37:49* Test Item Value Reference Range Interpretation Comme [facility] POCT GLU (test code = 2154208461) 264 mg/dL 70-110 H Lab Interpretation (test cod e = 83034-2) Abnormal [facility] GLUCOSE (AUTOMATED)2023-03-29 13:35:00* Test Item Value Reference Range Interpretation Comme [facility] POCT GLU (test code = 1954503278) 113 mg/dL 70-110 H Lab Interpretation (test cod e = 39468-7) Abnormal [facility] GLUCOSE (AUTOMATED)2023-03-29 09:32:30* Test Item Value Reference Range Interpretation Comme nts POCT GLU (test code = 6493103865) 216 mg/dL 70-110 H Lab Interpretation (test cod e = 44709-6) Abnormal [facility] GLUCOSE (AUTOMATED)2023-03-29 01:54:09* Test Item Value Reference Range Interpretation Comme nts POCT GLU (test code = 0555817478) 220 mg/dL 70-110 H Lab Interpretation (test cod e = 88931-9) Abnormal [facility] GLUCOSE (AUTOMATED)2023-03-28 22:30:14* Test Item Value Reference Range Interpretation Comme nts POCT GLU (test code = 3329960679) 176 mg/dL 70-110 H Lab Interpretation (test cod e = 05246-1) Abnormal [facility] GLUCOSE (AUTOMATED)2023-03-28 17:33:49* Test Item Value Reference Range Interpretation Comme nts POCT GLU (test code = 9097114471) 221 mg/dL 70-110 H Lab Interpretation (test cod e = 88298-3) Abnormal [facility] GLUCOSE (AUTOMATED)2023-03-28 13:42:52* Test Item Value Reference Range Interpretation Comme nts POCT GLU (test code = 4990542177) 151 mg/dL 70-110 H Lab Interpretation (test cod e = 64749-6) Abnormal [facility] GLUCOSE (AUTOMATED)2023-03-28 10:21:23* Test Item Value Reference Range Interpretation Comme nts POCT GLU (test code = 9028103940) 129 mg/dL 70-110 H Lab Interpretation (test cod e = 34161-9) [facility]2023-03-28 06:12:27* Test Item Value Reference Range Interpretation Comme nts POCT GLU (test code = 6870313665) 144 mg/dL 70-110 H Lab Interpretation (test cod e = 75357-3) Abnormal [facility] GLUCOSE (AUTOMATED)2023-03-28 06:12:22* Test Item Value Reference Range Interpretation Comme nts POCT GLU (test code = 6891554104) 146 mg/dL 70-110 H Lab Interpretation (test cod e = 69935-9) Abnormal [facility] GLUCOSE (AUTOMATED)2023-03-28 02:00:25* Test Item Value Reference Range Interpretation Comme nts POCT GLU (test code = 5744971345) 148 mg/dL 70-110 H Lab Interpretation (test cod e = 06306-3) Abnormal [facility] GLUCOSE (AUTOMATED)2023-03-27 22:21:12* Test Item Value Reference Range Interpretation Comme nts POCT GLU (test code = 8065528393) 142 mg/dL 70-110 H Lab Interpretation (test cod e = 44806-5) [facility] [id number] 20:42:04* Test Item Value Reference Range Interpretation Comme nts CRP (test code = 6494881246) 24.0 mg/dL <=0.8 H Lab Interpretation (test cod e = 59680-5) Abnormal [facility] GLUCOSE (AUTOMATED)2023-03-27 13:48:42* Test Item Value Reference Range Interpretation Comme nts POCT GLU (test code = 5661124456) 115 mg/dL 70-110 H Lab Interpretation (test cod e = 76647-8) Abnormal [facility] Worth[facility]EDIMENT[facility] [id number] 12:39:13* Test Item Value Reference Range Interpretation Comme nts ESR (test code = 45916-9) 28 See_Comment H [Automated [employer]] The system which generated this result transmitted reference range: 0 - 10 mm/HR. The reference range was not used to interpret this result as normal/abnormal. Lab Interpretation (test code = 98945-7) Abnormal [facility]2023-[facility]-12 11:10:18* Test Item Value Reference Range Interpretation Comme nts MAGNESIUM (test code = 1321395731) 1.9 mg/dL 1.7-2.4 Lab Interpretation (test cod e = 95613-0) Normal [facility] METABOLIC PANEL (NA, K, CL, CO2, GLUCOSE, BUN, CREATININE, CA)2023-03-27 11:09:58* Test Item Value Reference Range Interpretation Comme nts NA (test code = 5504856041) 137 mmol/L 135-145 K (test code = 8489176699) 3.7 mmol/L 3.5-5.0 CL (test code = 3945400456) 104 mmol/L 98-108 CO2 TOTAL (test code = 4397887500) 17 mmol/L 23-31 L AGAP (test code = 4002854637) 16 2-16 BUN (test code = 2238304049) 16 mg/dL 7-23 GLUCOSE (test code = 6581960833) 111 mg/dL 70-110 H CREATININE (test code = 5984103891) 0.61 mg/dL 0.60-1.25 CALCIUM (test code = 0127000167) 8.6 mg/dL 8.6-10.6 eGFR (test code = 58962-3) 107.9 mL/min/1.73m2 CKD-EPI eGFR (2020). Assuming creatinine has been stable day-to-day for at least three months, the eGFR indicates Category G1 (>= 90 mL/min/1.73 m2) Lab Interpretation (test code = 08763-9) Abnormal [facility] WITH [id number] 10:48:52* Test Item Value Reference Range Interpretation Comme nts WBC (test code = 6690-2) 16.04 See_Comment H [Automated message] The system which generated this result transmitted reference range: 4.20 - 10.70 10*3/?L. The reference range was not used to interpret this result as normal/abnormal. RBC (test code = 789-8) 4.20 See_Comment L [Automated message] The system which generated this result transmitted reference range: 4.26 - 5.52 10*6/?L. The reference range was not used to interpret this result as normal/abnormal. HGB (test code = 718-7) 12.7 g/dL 12.2-16.4 HCT (test code = 4544-3) 37.5 % 38.4-49.3 L MCV (test code = 787-2) 89.3 fL 81.7-95.6 MCH (test code = 785-6) 30.2 pg 26.1-32.7 MCHC (test code = 786-4) 33.9 g/dL 31.2-35.0 RDW-SD (test code = 86926-7) 42.5 fL 38.5-51.6 RDW-CV (test code = 788-0) 12.8 % 12.1-15.4 PLT (test code = 777-3) 290 See_Comment [Automated message] The system which generated this result transmitted reference range: 150 - 328 10*3/?L. The reference range was not used to interpret this result as normal/abnormal. MPV (test code = 74151-6) 8.9 fL 9.8-13.0 L NRBC/100 WBC (test code = 0642167547) 0.0 See_Comment [Automated message] The system which generated this result transmitted reference range: 0.0 - 10.0 /100 WBCs. The reference range was not used to interpret this result as normal/abnormal. NRBC x10^3 (test code = 9115670723) See_Comment [Automated message] The system which generated this result transmitted reference range: 10*3/?L. The reference range was not used to interpret this result as normal/abnormal. GRAN MAT (NEUT) % (test code = 770-8) 81.9 % IMM GRAN % (test code = 1981818694) 0.60 % LYMPH % (test code = 736-9) 7.3 % MONO % (test code = 5905-5) 7.7 % EOS % (test code = 713-8) 2.1 % BASO % (test code = 706-2) 0.4 % GRAN MAT x10^3(ANC) (test code = 5882372962) 13.14 10*3/uL 1.99-6.95 H IMM GRAN x10^3 (test code = 6963960704) 0.10 10*3/uL 0.00-0.06 H LYMPH x10^3 (test code = 731-0) 1.17 10*3/uL 1.09-3.23 MONO x10^3 (test code = 742-7) 1.24 10*3/uL 0.36-1.02 H EOS x10^3 (test code = 711-2) 0.33 10*3/uL 0.06-0.53 BASO x10^3 (test code = 704-7) 0.06 10*3/uL 0.01-0.09 Lab Interpretation (test code = 10691-3) Abnormal [facility] GLUCOSE (AUTOMATED)2023-03-27 10:19:14* Test Item Value Reference Range Interpretation Comme nts POCT GLU (test code = 1766032019) 111 mg/dL 70-110 H Lab Interpretation (test cod e = 73030-4) Abnormal [facility] GLUCOSE (AUTOMATED)2023-03-26 22:27:54* Test Item Value Reference Range Interpretation Comme nts POCT GLU (test code = 7165460086) 101 mg/dL 70-110 Lab Interpretation (test cod e = 61862-7) Normal [facility] GLUCOSE (AUTOMATED)2023-03-26 17:13:31* Test Item Value Reference Range Interpretation Comme nts POCT GLU (test code = 5309954659) 102 mg/dL 70-110 Lab Interpretation (test cod e = 49881-5) Normal [facility] GLUCOSE (AUTOMATED)2023-03-26 14:02:14* Test Item Value Reference Range Interpretation Comme nts POCT GLU (test code = 0931833950) 99 mg/dL 70-110 Lab Interpretation (test cod e = 47007-5) Normal [facility] GLUCOSE (AUTOMATED)2023-03-26 10:34:19* Test Item Value Reference Range Interpretation Comme nts POCT GLU (test code = 3256662363) 85 mg/dL 70-110 Lab Interpretation (test cod e = 34502-9) Normal [facility] GLUCOSE (AUTOMATED)2023-03-26 06:18:38* Test Item Value Reference Range Interpretation Comme nts POCT GLU (test code = 8120442177) 74 mg/dL 70-110 Lab Interpretation (test cod e = 41197-6) Normal [facility] GLUCOSE (AUTOMATED)2023-03-26 06:03:04* Test Item Value Reference Range Interpretation Comme nts POCT GLU (test code = 0795398572) 84 mg/dL 70-110 Lab Interpretation (test cod e = 90690-1) Normal [facility] GLUCOSE (AUTOMATED)2023-03-25 22:33:36* Test Item Value Reference Range Interpretation Comme nts POCT GLU (test code = 2629345788) 111 mg/dL 70-110 H Lab Interpretation (test cod e = 93572-3) Abnormal [facility] GLUCOSE (AUTOMATED)2023-03-25 22:33:36* Test Item Value Reference Range Interpretation Comme nts POCT GLU (test code = 8080369277) 144 mg/dL 70-110 H Lab Interpretation (test cod e = 79624-1) Abnormal [facility]2023-03-25 17:29:34* Test Item Value Reference Range Interpretation Comme nts POCT GLU (test code = 0386145614) 150 mg/dL 70-110 H Lab Interpretation (test cod e = 98349-9) Abnormal [facility] GLUCOSE (AUTOMATED)2023-03-25 10:33:59* Test Item Value Reference Range Interpretation Comme nts POCT GLU (test code = 8653721103) 138 mg/dL 70-110 H Lab Interpretation (test cod e = 05844-8) Abnormal [facility] GLUCOSE (AUTOMATED)2023-03-25 06:17:42* Test Item Value Reference Range Interpretation Comme nts POCT GLU (test code = 6670873340) 160 mg/dL 70-110 H Lab Interpretation (test cod e = 01015-4) Abnormal [facility] GLUCOSE (AUTOMATED)2023-03-25 02:34:35* Test Item Value Reference Range Interpretation Comme nts POCT GLU (test code = 4082108906) 164 mg/dL 70-110 H Lab Interpretation (test cod e = 93595-4) Abnormal [facility] GLUCOSE (AUTOMATED)2023-03-24 22:35:44* Test Item Value Reference Range Interpretation Comme nts POCT GLU (test code = 0533901302) 146 mg/dL 70-110 H Lab Interpretation (test cod e = 85663-6) Abnormal [facility] GLUCOSE (AUTOMATED)2023-03-24 16:35:58* Test Item Value Reference Range Interpretation Comme nts POCT GLU (test code = 3242731418) 136 mg/dL 70-110 H Lab Interpretation (test cod e = 07001-0) Abnormal [facility] ([facility] (ALB,T.PRO,BILI T,BU/BC,ALT,AST,ALK PHOS)2023-03-24 12:41:36* Test Item Value Reference Range Interpretation Comme nts TOTAL BILI (test code = 3825374775) 0.6 mg/dL 0.1-1.1 BILI UNCON (test code = 0241776047) 0.3 mg/dL 0.1-1.1 BILI CONJ (test code = 5490347356) 0.0 mg/dL 0.0-0.3 T PROTEIN (test code = 0870277584) 7.2 g/dL 6.3-8.2 ALBUMIN (test code = 6510654820) 4.1 g/dL 3.5-5.0 ALK PHOS (test code = 9919158204) 122 U/L 34-122 ALTv (test code = 1742-6) 23 U/L 5-50 AST(SGOT) (test code = 7287665218) 26 U/L 13-40 Lab Interpretation (test cod e = 26423-3) Normal [facility] 11:48:26* Test Item Value Reference Range Interpretation Comme nts MAGNESIUM (test code = 0743215430) 2.1 mg/dL 1.7-2.4 Lab Interpretation (test cod e = 70681-8) Normal [facility] (NA, K, CL, CO2, GLUCOSE, BUN, CREATININE, CA)2023-03-24 11:48:25* Test Item Value Reference Range Interpretation Comme nts NA (test code = 2349777885) 139 mmol/L 135-145 K (test code = 9828027528) 4.2 mmol/L 3.5-5.0 CL (test code = 7601120568) 107 mmol/L 98-108 CO2 TOTAL (test code = 4870411173) 16 mmol/L 23-31 L AGAP (test code = 7692169380) 16 2-16 BUN (test code = 9887008072) 20 mg/dL 7-23 GLUCOSE (test code = 6645240430) 190 mg/dL 70-110 H CREATININE (test code = 0418864415) 0.73 mg/dL 0.60-1.25 CALCIUM (test code = 8193578104) 9.6 mg/dL 8.6-10.6 eGFR (test code = 46402-4) 102.2 mL/min/1.73m2 CKD-EPI eGFR (2020). Assuming creatinine has been stable day-to-day for at least three months, the eGFR indicates Category G1 (>= 90 mL/min/1.73 m2) Lab Interpretation (test code = 47923-0) Abnormal [facility] with [id number] 10:16:36* Test Item Value Reference Range Interpretation Comme nts WBC (test code = 6690-2) 11.41 See_Comment H [Automated [employer]] The system which generated this result transmitted reference range: 4.20 - 10.70 10*3/?L. The reference range was not used to interpret this result as normal/abnormal. RBC (test code = 789-8) 4.69 See_Comment [[employer]] The system which generated this result transmitted reference range: 4.26 - 5.52 10*6/?L. The reference range was not used to interpret this result as normal/abnormal. HGB (test code = 718-7) 14.5 g/dL 12.2-16.4 HCT (test code = 4544-3) 42.2 % 38.4-49.3 MCV (test code = 787-2) 90.0 fL 81.7-95.6 MCH (test code = 785-6) 30.9 pg 26.1-32.7 MCHC (test code = 786-4) 34.4 g/dL 31.2-35.0 RDW-SD (test code = 15609-2) 43.4 fL 38.5-51.6 RDW-CV (test code = 788-0) 13.2 % 12.1-15.4 PLT (test code = 777-3) 370 See_Comment H [[employer]] The system which generated this result transmitted reference range: 150 - 328 10*3/?L. The reference range was not used to interpret this result as normal/abnormal. MPV (test code = 82699-3) 8.9 fL 9.8-13.0 L NRBC/100 WBC (test code = 9665608871) 0.0 See_Comment [Automated [employer] ssage] The system which generated this result transmitted reference range: 0.0 - 10.0 /100 WBCs. The reference range was not used to interpret this result as normal/abnormal. NRBC x10^3 (test code = 3969802136) See_Comment [Automated messa ge] The system which generated this result transmitted reference range: 10*3/?L. The reference range was not used to interpret this result as normal/abnormal. GRAN MAT (NEUT) % (test code = 770-8) 70.3 % IMM GRAN % (test code = 5171769245) 1.00 % LYMPH % (test code = 736-9) 18.6 % MONO % (test code = 5905-5) 8.7 % EOS % (test code = 713-8) 0.9 % BASO % (test code = 706-2) 0.5 % GRAN MAT x10^3(ANC) (test code = 9408851007) 8.03 10*3/uL 1.99-6.95 H IMM GRAN x10^3 (test code = 5986568757) 0.11 10*3/uL 0.00-0.06 H LYMPH x10^3 (test code = 731-0) 2.12 10*3/uL 1.09-3.23 MONO x10^3 (test code = 742-7) 0.99 10*3/uL 0.36-1.02 EOS x10^3 (test code = 711-2) 0.10 10*3/uL 0.06-0.53 BASO x10^3 (test code = 704-7) 0.06 10*3/uL 0.01-0.09 Lab Interpretation (test code = 10732-4) Abnormal [facility] GLUCOSE (AUTOMATED)2023-03-24 01:11:05* Test Item Value Reference Range Interpretation Comme nts POCT GLU (test code = 3715242769) 267 mg/dL 70-110 H Lab Interpretation (test cod e = 68879-8) Abnormal [facility] GLUCOSE(AGE >30DAYS)2023-03-24 01:11:00* Test Item Value Reference Range Interpretation Comme nts POCT Glu (age>30days) (test code = 3342) 267 mg/dL 70-110 A Lab Interpretation (test cod e = 56756-0) [facility] [id number] 06:47:00* Test Item Value Reference Range Interpretation Comme nts SODIUM (test code = NA) 133 mmol/L 134-147 L POTASSIUM (test code = K) 5.4 mmol/L 3.4-5.0 H CHLORIDE (test code = CL) 101 mmol/L 100-108 N CARBON DIOXIDE (test code = CO2) 27 mmol/L 21-32 N ANION GAP (test code = GAP) 5.0 GAP calc 4.0-15.0 N GLUCOSE (test code = GLU) 97 MG/DL 70-110 N BLOOD UREA NITROGEN (test code = BUN) 15 MG/DL 7-18 N GLOMERULAR FILTRATION RATE (test code = GFR) >=60 max estimate estGFR >60 The Glomerular Filtration Rate is a calculated parameterbased on serum Creatinine, patient age and sex. GFR valuesless than 60 mL/min/1.73 square meters are indicative ofChronic Kidney Disease. Values less than 15 mL/min/1.73square meters indicate Kidney failure. The calculation forGFR is based on the CKD-EPI (2020) calculation. This formulais race indifferent and is the recommended formula for GFRby the National Kidney Foundation for Adults.The GFR will not calculate if the sex is unknown or if thepatient's age is <18 years. CREATININE (test code = CREAT) 1.0 MG/DL 0.8-1.3 N TOTAL PROTEIN (test code = PROT) 8.1 G/DL 6.4-8.2 N ALBUMIN (test code = ALB) 3.8 G/DL 3.4-5.0 N GLOBULIN (test code = GLOB) 4.3 GM/dL ALBUMIN/GLOBULIN RATIO (test code = A/G) 0.9 RATIO 1.2-2.2 L CALCIUM (test code = CA) 9.2 MG/DL 8.5-10.1 N BILIRUBIN TOTAL (test code = BILT) 0.60 MG/DL 0.2-1.2 N SGOT/AST (test code = AST) 36 Unit/L 15-37 N SGPT/ALT (test code = ALT) 26 Unit/L 12-78 N ALKALINE PHOSPHATASE TOTAL (test code = ALKP) 104 Unit/L 50-136 N LIPID PROFILE (CORONARY RISK)2023-01-29 06:47:00* Test Item Value Reference Range Interpretation Comme nts TRIGLYCERIDES (test code = TRIG) 54 MG/DL 0-150 N CHOLESTEROL (test code = CHOL) 156 MG/DL 133-200 N CHOLESTEROL/HDL RATIO (test code = CHOLHDL) 2.26 RATIO See_Comment RISK ASSOCIATED WITH CHOL/HDL RATIOS: RISK MALE FEMALE1/2 AVERAGE 3.43 3.27AVERAGE 4.97 4.442X AVERAGE 9.55 7.053X AVERAGE 23.39 11.04 NOTE THAT THE REFERENCE VALUE IS RELATED TO RISK LEVELS ASRECOMMENDED BY THE [facility]. [Automated message] The system which generated this result transmitted reference range: 0-. The reference range was not used to interpret this result as normal/abnormal. HDL CHOLESTEROL (test code = HDL) 69 MG/DL 40-59 H NON-HDL CHOLESTEROL (test code = NHDL) 87 mg/dL <130 LIPOPROTEIN LDL (test code = LDL) 83 MG/DL 0-129 N <100 [id number] 0 - 129 NEAR OPTIMAL/ABOVE [id number] - 159 [id number] - 189 HIGH>OR= 190 VERY HIGHNOTE THAT GUIDELINES ARE PROVIDED BY NATIONAL CHOLESTEROLEDUCATION PROGRAM ADULT TREATMENT PANEL III LDL/HDL (test code = LDL/HDL) 1.20 Ratio See_Comment L [Automated messa ge] The system which generated this result transmitted reference range: 1.48-3.22 Avg. The reference range was not used to interpret this result as normal/abnormal. [id number] 06:47:00* Test Item Value Reference Range Interpretation Comme nts MAGNESIUM (test code = MAG) 1.9 MG/DL 1.8-2.4 N PROTHROMBIN [id number] 06:35:00* Test Item Value Reference Range Interpretation Comme nts PT PATIENT (test code = PTP) 10.6 SECONDS 9.3-12.9 N INTERNATIONAL NORMAL RATIO (test code = INR) 0.96 INR Unit 0.8-1.2 N TARGET INR BY INDICATION Indication INR1. Prophylaxis of venous thrombosis 2.0 - 3.0 (orthopedic surgery), Prophylaxis of venous thrombosis (other than high-risk surgery), Treatment of Deep Vein Thrombosis/Pulmonary Embolism, Prevention of systemic embolism - Tissue heart valves, Acute Myocardial Infarction (to prevent systemic embolism), Valvular heart disease, Acute Myocardial Infarction (to prevent systemic embolism), Valvular heart disease, Atrial Fibrillation, Bileaflet mechanical valve in aortic position.2. Mechanical prosthetic valves (high risk), 2.5 - 3.5 Presence of Lupus Anticoagulant or Antiphospholipid Antibodies, Prevention of systemic embolism - Acute Myocardial Infarction (to prevent recurrent infarct). CBC W/AUTO [id number] 06:23:00* Test Item Value Reference Range Interpretation Comme nts WHITE BLOOD CELL (test code = WBC) 11.8 K/mm3 3.5-11.0 H RED BLOOD CELL (test code = RBC) 4.75 M/mm3 4.70-6.10 N HEMOGLOBIN (test code = HGB) 14.4 G/DL 12.3-15.9 N HEMATOCRIT (test code = HCT) 42.3 % 35.8-46.7 N MEAN CELL VOLUME (test code = MCV) 89.1 Fl 86.3-98.9 N MEAN CELL HGB (test code = MCH) 30.3 pg 28.9-34.4 N MEAN CELL HGB CONCETRATION (test code = MCHC) 34.0 G/DL 32.1-34.5 N RED CELL DISTRIBUTION WIDTH (test code = RDW) 13.3 SD 11.5-14.5 N PLATELET COUNT (test code = PLT) 378 K/mm3 150-450 N MEAN PLATELET VOLUME (test c ode = MPV) 8.60 fL 7.0-9.6 N NEUTROPHIL % (test code = NT%) 72.8 % 40-76 N IMMATURE GRANULOCYTE % (test code = IG%) 0.5 % 0.0-5.0 N LYMPHOCYTE % (test code = LY%) 17.0 % 20.5-51.1 L MONOCYTE % (test code = MO%) 6.0 % 1.7-9.3 N EOSINOPHIL % (test code = EO%) 3.3 % 0.0-6.0 N BASOPHIL % (test code = BA%) 0.4 % 0.0-2.0 N NUCLEATED RBC % (test code = NRBC%) 0.0 /100WBC% 0.0-1.0 N NEUTROPHIL # (test code = NT#) 8.6 K/mm3 1.8-7.6 H IMMATURE GRANULOCYTE # (test code = IG#) 0.06 x10 3/uL 0.00-0.03 H LYMPHOCYTE # (test code = LY#) 2.0 K/mm3 0.6-3.0 N MONOCYTE # (test code = MO#) 0.7 K/mm3 0.2-1.5 N EOSINOPHIL # (test code = EO#) 0.4 K/mm3 0.0-0.4 N BASOPHIL # (test code = BA#) 0.1 K/mm3 0.0-0.2 N NUCLEATED RBC # (test code = NRBC#) 0.0 K/mm3 0.00-0.01 N MANUAL DIFF REQUIRED (test c ode = MDIFF) NO DIFF/SCN CRITERIA C-REACTIVE [id number] 05:19:51* Test Item Value Reference Range Interpretation Comme nts C-REACTIVE PROTEIN (test code = 3513) 0.6 MG/DL <0.5 H UNLESS OTHERW ISE INDICATED, ALL TESTING PERFORMED AT [facility] [address] [place] [address] ALTERATION MANAGER: SCOTT VANG M.D. CLIA NUMBER [id number] [facility] [place]. [id number] COMPREHENSIVE METABOLIC [id number] 05:14:22* Test Item Value Reference Range Interpretation Comme nts GLUCOSE (test code = 2217) 252 MG/DL 70-99 H BUN (test code = 2208) 11 MG/DL 8-23 CREATININE (test code = 2214) 1.28 MG/DL 0.80-1.40 eGFR (2020 CKD-EPI) (test code = 99380) 63 ML/MIN/1.73 >60 CALC BUN/CREAT (test code = 2235) 9 RATIO 6-28 SODIUM (test code = 2231) 137 MEQ/L 133-146 POTASSIUM (test code = 2228) 4.6 MEQ/L 3.5-5.4 CHLORIDE (test code = 2215) 100 MEQ/L 95-107 CARBON DIOXIDE (test code = 2206) 27 MEQ/L 19-31 CALCIUM (test code = 2209) 9.2 MG/DL 8.5-10.5 PROTEIN, TOTAL (test code = 222) 6.3 G/DL 6.1-8.3 ALBUMIN (test code = 2201) 4.2 G/DL 3.5-5.2 CALC GLOBULIN (test code = 224) 2.1 G/DL 1.9-3.7 CALC A/G RATIO (test code = 2234) 2.0 RATIO 1.0-2.6 BILIRUBIN, TOTAL (test code = 2207) 0.2 MG/DL See_Comment [Automated nh ssage] The system which generated this result transmitted reference range: <=1.2. The reference range was not used to interpret this result as normal/abnormal. ALKALINE PHOSPHATASE (test code = 4) 109 U/L 40-123 AST (test code = 2218) 14 U/L 9-50 ALT (test code = 2219) 18 U/L 5-50 CBC W/AUTO DIFF WITH [id number] 02:17:08* Test Item Value Reference Range Interpretation Comme nts WBC (test code = 1001) 8.7 K/UL 3.5-11.0 RBC (test code = 1002) 4.37 M/UL 4.50-6.10 L HEMOGLOBIN (test code = 1003) 13.3 G/DL 13.5-17.0 L HEMATOCRIT (test code = 1004) 39.6 % 40.0-51.0 L MCV (test code = 1005) 90.6 fL 80.0-99.0 MCH (test code = 1006) 30.4 PG 25.0-33.0 MCHC (test code = 1007) 33.6 G/DL 31.0-36.0 RDW (test code = 1038) 13.2 % 11.5-15.0 NEUTROPHILS (test code = 1008) 64.7 % LYMPHOCYTES (test code = 1010) 23.1 % MONOCYTES (test code = 1011) 6.8 % EOSINOPHILS (test code = 1012) 4.4 % BASOPHILS (test code = 1013) 0.7 % IMMATURE GRANULOCYTES (test code = 1036) 0.3 % NUCLEATED RBCS (test code = 1065) 0.0 /100 WBC'S See_Comment [Automated [employer]] The system which generated this result transmitted reference range: 0.0. The reference range was not used to interpret this result as normal/abnormal. PLATELET COUNT (test code = 1015) 345 K/UL 130-400 ABSOLUTE NEUTROPHILS (test code = 1066) 5.65 K/UL 1.50-7.50 ABSOLUTE LYMPHOCYTES (test code = 1067) 2.02 K/UL 1.00-4.00 ABSOLUTE MONOCYTES (test code = 1068) 0.59 K/UL 0.20-1.00 ABSOLUTE EOSINOPHILS (test code = 1040) 0.38 K/UL 0.00-0.50 ABSOLUTE BASOPHILS (test code = 1069) 0.06 K/UL 0.00-0.20 ABS IMMATURE GRANULOCYTES (test code = 1020) 0.03 K/UL 0.00-0.10 ABS NUCLEATED RBCS (test code = 55152) 0.00 K/UL 0.00-0.11 COMPREHENSIVE METABOLIC [id number] 00:00:00* Test Item Value Reference Range Interpretation Comme nts GLUCOSE (test code = 2217) 252 MG/DL BUN (test code = 2208) 11 MG/DL CREATININE (test code = 2214) 1.28 MG/DL eGFR (2020 CKD-EPI) (test co de = 26205) 63 ML/MIN/1.73 CALC BUN/CREAT (test code = 2235) 9 RATIO SODIUM (test code = 2231) 137 MEQ/L POTASSIUM (test code = 2228) 4.6 MEQ/L CHLORIDE (test code = 2215) 100 MEQ/L CARBON DIOXIDE (test code = 2206) 27 MEQ/L CALCIUM (test code = 2209) 9.2 MG/DL PROTEIN, TOTAL (test code = 2229) 6.3 G/DL ALBUMIN (test code = 2201) 4.2 G/DL CALC GLOBULIN (test code = 2240) 2.1 G/DL CALC A/G RATIO (test code = 2234) 2.0 RATIO BILIRUBIN, TOTAL (test code = 2207) 0.2 MG/DL ALKALINE PHOSPHATASE (test code = 2204) 109 U/L AST (test code = 2218) 14 U/L ALT (test code = 2219) 18 U/L Kvng Pozo RennyC-REACTIVE [id number] 00:00:00* Test Item Value Reference Range Interpretation Comme nts C-REACTIVE PROTEIN (test cod e = 3513) 0.6 MG/DL Kvng Pozo RennyCBC W/AUTO [id number] 00:00:00* Test Item Value Reference Range Interpretation Comme nts WBC (test code = 1001) 8.7 K/UL RBC (test code = 1002) 4.37 M/UL HEMOGLOBIN (test code = 1003) 13.3 G/DL HEMATOCRIT (test code = 1004) 39.6 % MCV (test code = 1005) 90.6 fL MCH (test code = 1006) 30.4 PG MCHC (test code = 1007) 33.6 G/DL RDW (test code = 1038) 13.2 % NEUTROPHILS (test code = 1008) 64.7 % LYMPHOCYTES (test code = 1010) 23.1 % MONOCYTES (test code = 1011) 6.8 % EOSINOPHILS (test code = 1012) 4.4 % BASOPHILS (test code = 1013) 0.7 % IMMATURE GRANULOCYTES (test code = 1036) 0.3 % NUCLEATED RBCS (test code = 1065) 0.0 /100WBC'S PLATELET COUNT (test code = 1015) 345 K/UL ABSOLUTE NEUTROPHILS (test c ode = 1066) 5.65 K/UL ABSOLUTE LYMPHOCYTES (test c ode = 1067) 2.02 K/UL ABSOLUTE MONOCYTES (test cod e = 1068) 0.59 K/UL ABSOLUTE EOSINOPHILS (test c ode = 1040) 0.38 K/UL ABSOLUTE BASOPHILS (test cod e = 1069) 0.06 K/UL ABS IMMATURE GRANULOCYTES (t est code = 1020) 0.03 K/UL ABS NUCLEATED RBCS (test cod e = 28989) 0.00 K/UL Kvng LawsonCOMPREHENSIVE METABOLIC [id number] 00:00:00* Test Item Value Reference Range Interpretation Comme nts GLUCOSE (test code = 2217) 252 MG/DL BUN (test code = 2208) 11 MG/DL CREATININE (test code = 2214) 1.28 MG/DL eGFR (2020 CKD-EPI) (test co de = 94633) 63 ML/MIN/1.73 CALC BUN/CREAT (test code = 2235) 9 RATIO SODIUM (test code = 2231) 137 MEQ/L POTASSIUM (test code = 2228) 4.6 MEQ/L CHLORIDE (test code = 2215) 100 MEQ/L CARBON DIOXIDE (test code = 2206) 27 MEQ/L CALCIUM (test code = 2209) 9.2 MG/DL PROTEIN, TOTAL (test code = 2229) 6.3 G/DL ALBUMIN (test code = 2201) 4.2 G/DL CALC GLOBULIN (test code = 2240) 2.1 G/DL CALC A/G RATIO (test code = 2234) 2.0 RATIO BILIRUBIN, TOTAL (test code = 2207) 0.2 MG/DL ALKALINE PHOSPHATASE (test code = 2204) 109 U/L AST (test code = 2218) 14 U/L ALT (test code = 2219) 18 U/L Kvng LawsonC-REACTIVE [id number] 00:00:00* Test Item Value Reference Range Interpretation Comme nts C-REACTIVE PROTEIN (test cod e = 3513) 0.6 MG/DL Kvng LawsonCBC W/AUTO [id number] 00:00:00* Test Item Value Reference Range Interpretation Comme nts WBC (test code = 1001) 8.7 K/UL RBC (test code = 1002) 4.37 M/UL HEMOGLOBIN (test code = 1003) 13.3 G/DL HEMATOCRIT (test code = 1004) 39.6 % MCV (test code = 1005) 90.6 fL MCH (test code = 1006) 30.4 PG MCHC (test code = 1007) 33.6 G/DL RDW (test code = 1038) 13.2 % NEUTROPHILS (test code = 1008) 64.7 % LYMPHOCYTES (test code = 1010) 23.1 % MONOCYTES (test code = 1011) 6.8 % EOSINOPHILS (test code = 1012) 4.4 % BASOPHILS (test code = 1013) 0.7 % IMMATURE GRANULOCYTES (test code = 1036) 0.3 % NUCLEATED RBCS (test code = 1065) 0.0 /100WBC'S PLATELET COUNT (test code = 1015) 345 K/UL ABSOLUTE NEUTROPHILS (test c ode = 1066) 5.65 K/UL ABSOLUTE LYMPHOCYTES (test c ode = 1067) 2.02 K/UL ABSOLUTE MONOCYTES (test cod e = 1068) 0.59 K/UL ABSOLUTE EOSINOPHILS (test c ode = 1040) 0.38 K/UL ABSOLUTE BASOPHILS (test cod e = 1069) 0.06 K/UL ABS IMMATURE GRANULOCYTES (t est code = 1020) 0.03 K/UL ABS NUCLEATED RBCS (test cod e = 01559) 0.00 K/UL Kvng Pozo RennyCOMPREHENSIVE METABOLIC [id number] 00:00:00* Test Item Value Reference Range Interpretation Comme nts GLUCOSE (test code = 2217) 252 MG/DL BUN (test code = 2208) 11 MG/DL CREATININE (test code = 2214) 1.28 MG/DL eGFR (2020 CKD-EPI) (test co de = 80693) 63 ML/MIN/1.73 CALC BUN/CREAT (test code = 2235) 9 RATIO SODIUM (test code = 2231) 137 MEQ/L POTASSIUM (test code = 2228) 4.6 MEQ/L CHLORIDE (test code = 2215) 100 MEQ/L CARBON DIOXIDE (test code = 2206) 27 MEQ/L CALCIUM (test code = 2209) 9.2 MG/DL PROTEIN, TOTAL (test code = 2229) 6.3 G/DL ALBUMIN (test code = 2201) 4.2 G/DL CALC GLOBULIN (test code = 2240) 2.1 G/DL CALC A/G RATIO (test code = 2234) 2.0 RATIO BILIRUBIN, TOTAL (test code = 2207) 0.2 MG/DL ALKALINE PHOSPHATASE (test code = 2204) 109 U/L AST (test code = 2218) 14 U/L ALT (test code = 2219) 18 U/L Kvng LawsonC-REACTIVE [id number] 00:00:00* Test Item Value Reference Range Interpretation Comme [facility] C-REACTIVE PROTEIN (test cod e = 3513) 0.6 MG/DL Kvng LawsonCBC W/AUTO [id number] 00:00:00* Test Item Value Reference Range Interpretation Comme [facility] WBC (test code = 1001) 8.7 K/UL RBC (test code = 1002) 4.37 M/UL HEMOGLOBIN (test code = 1003) 13.3 G/DL HEMATOCRIT (test code = 1004) 39.6 % MCV (test code = 1005) 90.6 fL MCH (test code = 1006) 30.4 PG MCHC (test code = 1007) 33.6 G/DL RDW (test code = 1038) 13.2 % NEUTROPHILS (test code = 1008) 64.7 % LYMPHOCYTES (test code = 1010) 23.1 % MONOCYTES (test code = 1011) 6.8 % EOSINOPHILS (test code = 1012) 4.4 % BASOPHILS (test code = 1013) 0.7 % IMMATURE GRANULOCYTES (test code = 1036) 0.3 % NUCLEATED RBCS (test code = 1065) 0.0 /100WBC'S PLATELET COUNT (test code = 1015) 345 K/UL ABSOLUTE NEUTROPHILS (test c ode = 1066) 5.65 K/UL ABSOLUTE LYMPHOCYTES (test c ode = 1067) 2.02 K/UL ABSOLUTE MONOCYTES (test cod e = 1068) 0.59 K/UL ABSOLUTE EOSINOPHILS (test c ode = 1040) 0.38 K/UL ABSOLUTE BASOPHILS (test cod e = 1069) 0.06 K/UL ABS IMMATURE GRANULOCYTES (t est code = 1020) 0.03 K/UL ABS NUCLEATED RBCS (test cod e = 10598) 0.00 K/UL Kvng Emery [id number] 09:59:53SPECIMEN NUMBER: [id number] CULTURE, ANAEROBIC SPECIMEN NUMBER: [id number] SPECIMEN COMMENT: FOOT SOURCE: FOOT REPORT STATUS: FINAL DIRECT GRAM STAIN: NO WBCs SEEN NO BACTERIA SEEN FINAL REPORT: 12/07/2022 NO ANAEROBES RECOVERED AFTER 5 DAYS PRELIMINARY REPORT #2: 12/04/2022 NO ANAEROBES ISOLATED AT 4 DAYS PRELIMINARY ANAEROBE REPORT: 12/02/2022 NO ANAEROBES RECOVERED AFTER 48 HOURS ADDITIONAL OBSERVATIONS: 12/03/2022 CULTURED FROM ENRICHMENT BROTH ONLY POTENTIAL AEROBIC PATHOGEN RECOVERED.NO FURTHER WORKUP UNLESS REQUESTED.CULTURE, [id number] 00:00:00* Test Item Value Reference Range Interpretation Comme nts CULTURE, ANAEROBIC (test code = 50641) SPECIMEN NUMBER: [id number] Kvng Emery, [id number] 00:00:00* Test Item Value Reference Range Interpretation Comme nts CULTURE, ANAEROBIC (test code = 26476) SPECIMEN NUMBER: [id number] Kvng LawsonCULTKOBE, [id number] 00:00:00* Test Item Value Reference Range Interpretation Comme nts CULTURE, ANAEROBIC (test code = 61243) SPECIMEN NUMBER: [id number] Kvng LawsonLIPID [id number] 06:26:53* Test Item Value Reference Range Interpretation Comme nts CHOLESTEROL (test code = 2210) 185 MG/DL <200 TRIGLYCERIDES (test code = 2232) 75 MG/DL <150 HDL CHOLESTEROL (test code = 2220) 45 MG/DL >39 CALC LDL CHOL (test code = 2237) 123 MG/DL <100 H NOTE: CALCULATED LDL IS BASED ON ASH-WHYTE METHOD WHICHINCLUDES ADJUSTABLE TRIGLYCERIDE:VLDL CHOLESTEROL RATIO.THIS FACTOR VARIES BY MEASURED TRIGLYCERIDE AND NON-HDLCHOLESTEROL CONCENTRATIONS WITH INCREASED CALCULATED LDL SEENIN HIGHER TRIGLYCERIDE OR LOWER NON-HDL SPECIMENS. FOR MOREINFORMATION, SEE CLIENT ANNOUNCEMENT AT [email or web address] RISK RATIO LDL/HDL (test code = 2238) 2.73 RATIO <3.55 CBC W/AUTO DIFF WITH [id number] 04:09:33* Test Item Value Reference Range Interpretation Comme nts WBC (test code = 1001) 8.3 K/UL 3.5-11.0 RBC (test code = 1002) 4.57 M/UL 4.50-6.10 HEMOGLOBIN (test code = 1003) 14.3 G/DL 13.5-17.0 HEMATOCRIT (test code = 1004) 41.7 % 40.0-51.0 MCV (test code = 1005) 91.2 fL 80.0-99.0 MCH (test code = 1006) 31.3 PG 25.0-33.0 MCHC (test code = 1007) 34.3 G/DL 31.0-36.0 RDW (test code = 1038) 13.5 % 11.5-15.0 NEUTROPHILS (test code = 1008) 54.5 % LYMPHOCYTES (test code = 1010) 33.3 % MONOCYTES (test code = 1011) 6.1 % EOSINOPHILS (test code = 1012) 5.4 % BASOPHILS (test code = 1013) 0.5 % IMMATURE GRANULOCYTES (test code = 1036) 0.2 % NUCLEATED RBCS (test code = 1065) 0.0 /100 WBC'S See_Comment [Automated message] The system which generated this result transmitted reference range: 0.0. The reference range was not used to interpret this result as normal/abnormal. PLATELET COUNT (test code = 1015) 344 K/UL 130-400 ABSOLUTE NEUTROPHILS (test code = 1066) 4.53 K/UL 1.50-7.50 ABSOLUTE LYMPHOCYTES (test code = 1067) 2.77 K/UL 1.00-4.00 ABSOLUTE MONOCYTES (test code = 1068) 0.51 K/UL 0.20-1.00 ABSOLUTE EOSINOPHILS (test code = 1040) 0.45 K/UL 0.00-0.50 ABSOLUTE BASOPHILS (test code = 1069) 0.04 K/UL 0.00-0.20 ABS IMMATURE GRANULOCYTES (test code = 1020) 0.02 K/UL 0.00-0.10 ABS NUCLEATED RBCS (test code = 19717) 0.00 K/UL 0.00-0.11 UNLESS OTHER SAGASTUME INDICATED, ALL TESTING PERFORMED AT [facility] [address] [place] [id number] ALTERATION MANAGER: SCOTT VANG M.D. [place] NUMBER [id number] [facility]. [id number] HEMOGLOBIN [id number] 02:10:42* Test Item Value Reference Range Interpretation Comme nts HEMOGLOBIN A1c (test code = 25358) 10.9 % 4.2-5.6 H [employer] GUIDELINES FOR HGB A1C: PREDIABETES/INCREASED RISK . . . . . . . 5.7-6.4% DIAGNOSIS OF DIABETES . . . . . . . . . >=6.5% WITH CONFIRMATION OR APPROPRIATE SYMPTOMS NOTE: ASSAY MAY BE AFFECTED BY HEMOGLOBINOPATHIES (SICKLE CELL ANEMIA, S-C DISEASE, OTHERS) OR ARTIFICIALLY LOWERED BY DECREASED RED CELL SURVIVAL (HEMOLYTIC ANEMIAS, BLOOD LOSS, ETC.). CONSIDER ALTERNATE TESTING OR LABORATORY CONSULTATION. LIPID [id number] 00:00:00* Test Item Value Reference Range Interpretation Comme nts CHOLESTEROL (test code = 2210) 185 MG/DL TRIGLYCERIDES (test code = 2232) 75 MG/DL HDL CHOLESTEROL (test code = 2220) 45 MG/DL CALC LDL CHOL (test code = 2237) 123 MG/DL RISK RATIO LDL/HDL (test cod e = 2238) 2.73 RATIO [facility] DIFF WITH PLATELETS [ADDED]2022-11-30 00:00:00* Test Item Value Reference Range Interpretation Comme nts WBC (test code = 1001) 8.3 K/UL RBC (test code = 1002) 4.57 M/UL HEMOGLOBIN (test code = 1003) 14.3 G/DL HEMATOCRIT (test code = 1004) 41.7 % MCV (test code = 1005) 91.2 fL MCH (test code = 1006) 31.3 PG MCHC (test code = 1007) 34.3 G/DL RDW (test code = 1038) 13.5 % NEUTROPHILS (test code = 1008) 54.5 % LYMPHOCYTES (test code = 1010) 33.3 % MONOCYTES (test code = 1011) 6.1 % EOSINOPHILS (test code = 1012) 5.4 % BASOPHILS (test code = 1013) 0.5 % IMMATURE GRANULOCYTES (test code = 1036) 0.2 % NUCLEATED RBCS (test code = 1065) 0.0 /100WBC'S PLATELET COUNT (test code = 1015) 344 K/UL ABSOLUTE NEUTROPHILS (test c ode = 1066) 4.53 K/UL ABSOLUTE LYMPHOCYTES (test c ode = 1067) 2.77 K/UL ABSOLUTE MONOCYTES (test cod e = 1068) 0.51 K/UL ABSOLUTE EOSINOPHILS (test c ode = 1040) 0.45 K/UL ABSOLUTE BASOPHILS (test cod e = 1069) 0.04 K/UL ABS IMMATURE GRANULOCYTES (t est code = 1020) 0.02 K/UL ABS NUCLEATED RBCS (test cod e = 29536) 0.00 K/UL Kvng LawsonHEMOGLOBIN [id number] 00:00:00* Test Item Value Reference Range Interpretation Comme nts HEMOGLOBIN A1c (test code = 20914) 10.9 % Kvng LawsonLIPID [id number] 00:00:00* Test Item Value Reference Range Interpretation Comme nts CHOLESTEROL (test code = 2210) 185 MG/DL TRIGLYCERIDES (test code = 2232) 75 MG/DL HDL CHOLESTEROL (test code = 2220) 45 MG/DL CALC LDL CHOL (test code = 2237) 123 MG/DL RISK RATIO LDL/HDL (test cod e = 2238) 2.73 RATIO Kvng LawsonCBC W/AUTO DIFF WITH PLATELETS [ADDED]2022-11-30 00:00:00* Test Item Value Reference Range Interpretation Comme nts WBC (test code = 1001) 8.3 K/UL RBC (test code = 1002) 4.57 M/UL HEMOGLOBIN (test code = 1003) 14.3 G/DL HEMATOCRIT (test code = 1004) 41.7 % MCV (test code = 1005) 91.2 fL MCH (test code = 1006) 31.3 PG MCHC (test code = 1007) 34.3 G/DL RDW (test code = 1038) 13.5 % NEUTROPHILS (test code = 1008) 54.5 % LYMPHOCYTES (test code = 1010) 33.3 % MONOCYTES (test code = 1011) 6.1 % EOSINOPHILS (test code = 1012) 5.4 % BASOPHILS (test code = 1013) 0.5 % IMMATURE GRANULOCYTES (test code = 1036) 0.2 % NUCLEATED RBCS (test code = 1065) 0.0 /100WBC'S PLATELET COUNT (test code = 1015) 344 K/UL ABSOLUTE NEUTROPHILS (test c ode = 1066) 4.53 K/UL ABSOLUTE LYMPHOCYTES (test c ode = 1067) 2.77 K/UL ABSOLUTE MONOCYTES (test cod e = 1068) 0.51 K/UL ABSOLUTE EOSINOPHILS (test c ode = 1040) 0.45 K/UL ABSOLUTE BASOPHILS (test cod e = 1069) 0.04 K/UL ABS IMMATURE GRANULOCYTES (t est code = 1020) 0.02 K/UL ABS NUCLEATED RBCS (test cod e = 11572) 0.00 K/UL Kvng LawsonHEMOGLOBIN [id number] 00:00:00* Test Item Value Reference Range Interpretation Comme nts HEMOGLOBIN A1c (test code = 79722) 10.9 % Kvng LawsonLIPID [id number] 00:00:00* Test Item Value Reference Range Interpretation Comme nts CHOLESTEROL (test code = 2210) 185 MG/DL TRIGLYCERIDES (test code = 2232) 75 MG/DL HDL CHOLESTEROL (test code = 2220) 45 MG/DL CALC LDL CHOL (test code = 2237) 123 MG/DL RISK RATIO LDL/HDL (test cod e = 2238) 2.73 RATIO [facility]ng [facility] RennyCBC W/AUTO DIFF WITH PLATELETS [ADDED]2022-11-30 00:00:00* Test Item Value Reference Range Interpretation Comme nts WBC (test code = 1001) 8.3 K/UL RBC (test code = 1002) 4.57 M/UL HEMOGLOBIN (test code = 1003) 14.3 G/DL HEMATOCRIT (test code = 1004) 41.7 % MCV (test code = 1005) 91.2 fL MCH (test code = 1006) 31.3 PG MCHC (test code = 1007) 34.3 G/DL RDW (test code = 1038) 13.5 % NEUTROPHILS (test code = 1008) 54.5 % LYMPHOCYTES (test code = 1010) 33.3 % MONOCYTES (test code = 1011) 6.1 % EOSINOPHILS (test code = 1012) 5.4 % BASOPHILS (test code = 1013) 0.5 % IMMATURE GRANULOCYTES (test code = 1036) 0.2 % NUCLEATED RBCS (test code = 1065) 0.0 /100WBC'S PLATELET COUNT (test code = 1015) 344 K/UL ABSOLUTE NEUTROPHILS (test c ode = 1066) 4.53 K/UL ABSOLUTE LYMPHOCYTES (test c ode = 1067) 2.77 K/UL ABSOLUTE MONOCYTES (test cod e = 1068) 0.51 K/UL ABSOLUTE EOSINOPHILS (test c ode = 1040) 0.45 K/UL ABSOLUTE BASOPHILS (test cod e = 1069) 0.04 K/UL ABS IMMATURE GRANULOCYTES (t est code = 1020) 0.02 K/UL ABS NUCLEATED RBCS (test cod e = 31300) 0.00 K/UL Kvng LawsonHEMOGLOBIN [id number] 00:00:00* Test Item Value Reference Range Interpretation Comme nts HEMOGLOBIN A1c (test code = 29426) 10.9 % Kvng LawsonALBUMIN/CREATININE RATIO, URINE, [id number] 11:01:34* Test Item Value Reference Range Interpretation Comme nts CREATININE, URINE, CONC. (test code = 2072) TEST NOT PERFORMED MG/DL NOT ESTAB Unable to perform testing, specimen not received.Charges adjusted as applicable. ALBUMIN, URINE, RANDOM (test code = 29348) TEST NOT PERFORMED MG/DL NOT ESTAB CALC ALBUMIN/CREAT, RND (test code = 52058) TEST NOT PERFORMED MG/G <30 Note: Albumin/Creatinine ratio reference interval reflects ADA and NKF guidelines. UNLESS OTHERWISE INDICATED, ALL TESTING PERFORMED ATCLINICAL PATHOLOGY [employer] [address] [place] [address] ALTERATION MANAGER: HAVEN BOLANOS M.D. CLIA NUMBER [id number] [place]. [id number] ALBUMIN/CREATININE RATIO, RANDOM [id number] 00:00:00* Test Item Value Reference Range Interpretation Comme nts CREATININE, URINE, CONC. (test code = 207) TEST NOT PERFORMED MG/DL ALBUMIN, URINE, RANDOM (test code = 37000) TEST NOT PERFORMED MG/DL CALC ALBUMIN/CREAT, RND (test code = 31788) TEST NOT PERFORMED MG/G Kvng F AustinALBUMIN/CREATININE RATIO, RANDOM [id number] 00:00:00* Test Item Value Reference Range Interpretation Comme nts CREATININE, URINE, CONC. (test code = 2071) TEST NOT PERFORMED MG/DL ALBUMIN, URINE, RANDOM (test code = 70723) TEST NOT PERFORMED MG/DL CALC ALBUMIN/CREAT, RND (test code = 08773) TEST NOT PERFORMED MG/G Kvng F AustinALBUMIN/CREATININE RATIO, RANDOM [id number] 00:00:00* Test Item Value Reference Range Interpretation Comme nts CREATININE, URINE, CONC. (test code = 207) TEST NOT PERFORMED MG/DL ALBUMIN, URINE, RANDOM (test code = 53493) TEST NOT PERFORMED MG/DL CALC ALBUMIN/CREAT, RND (test code = 92672) TEST NOT PERFORMED MG/G Kvng F RennyVITAMIN D, 25 [id number] 06:14:31* Test Item Value Reference Range Interpretation Comme nts VITAMIN D, 25 OH (test code = 4958) 37 NG/ML SEE BELOW NOTE: 25-HYDR OXYVITAMIN D ASSAY INCLUDES 25-HYDROXYVITAMIN D2 AND D3. METHODOLOGY IS CHEMILUMINESCENT IMMUNOASSAY. INTERPRETIVE RANGES PEDIATRIC (<17 YEARS) . . . . . . . . . . . NG/ML 20-100ADULT: INSUFFICIENT . . . . . . . . . . . . . . NG/ML <20 SUBOPTIMAL . . . . . . . . . . . . . . . NG/ML 20-29 OPTIMAL . . . . . . . . . . . . . . . . . NG/ML 30-100 HEMOGLOBIN [id number] 04:55:48* Test Item Value Reference Range Interpretation Comme nts HEMOGLOBIN A1c (test code = 64165) 11.4 % 4.2-5.6 H [employer] GUIDELINES FOR HGB A1C: PREDIABETES/INCREASED RISK . . . . . . . 5.7-6.4% DIAGNOSIS OF DIABETES . . . . . . . . . >=6.5% WITH CONFIRMATION OR APPROPRIATE SYMPTOMS NOTE: ASSAY MAY BE AFFECTED BY HEMOGLOBINOPATHIES (SICKLE CELL ANEMIA, S-C DISEASE, OTHERS) OR ARTIFICIALLY LOWERED BY DECREASED RED CELL SURVIVAL (HEMOLYTIC ANEMIAS, BLOOD LOSS, ETC.). CONSIDER ALTERNATE TESTING OR LABORATORY CONSULTATION. LIPID [id number] 04:22:10* Test Item Value Reference Range Interpretation Comme nts CHOLESTEROL (test code = 2210) 210 MG/DL <200 H TRIGLYCERIDES (test code = 2232) 113 MG/DL <150 HDL CHOLESTEROL (test code = 2220) 36 MG/DL >39 L CALC LDL CHOL (test code = 2237) 151 MG/DL <100 H NOTE: CALCULATED LDL IS BASED ON ASH-WHYTE METHOD WHICHINCLUDES ADJUSTABLE TRIGLYCERIDE:VLDL CHOLESTEROL RATIO.THIS FACTOR VARIES BY MEASURED TRIGLYCERIDE AND NON-HDLCHOLESTEROL CONCENTRATIONS WITH INCREASED CALCULATED LDL SEENIN HIGHER TRIGLYCERIDE OR LOWER NON-HDL SPECIMENS. FOR MOREINFORMATION, SEE CLIENT ANNOUNCEMENT AT [email or web address] RISK RATIO LDL/HDL (test code = 2238) 4.19 RATIO <3.55 H COMPREHENSIVE METABOLIC [id number] 04:22:10* Test Item Value Reference Range Interpretation Comme nts GLUCOSE (test code = 2217) 305 MG/DL 70-99 H BUN (test code = 2208) 10 MG/DL 8-23 CREATININE (test code = 2214) 0.96 MG/DL 0.80-1.40 eGFR (2020 CKD-EPI) (test code = 16274) 89 ML/MIN/1.73 >60 CALC BUN/CREAT (test code = 2235) 10 RATIO 6-28 SODIUM (test code = 2231) 133 MEQ/L 133-146 POTASSIUM (test code = 2228) 5.5 MEQ/L 3.5-5.4 H HEMOLYTIC INTERFERENCE DETECTED; RESULTS MAY BE AFFECTED CHLORIDE (test code = 2215) 97 MEQ/L 95-107 CARBON DIOXIDE (test code = 2206) 23 MEQ/L 19-31 CALCIUM (test code = 2209) 9.9 MG/DL 8.5-10.5 PROTEIN, TOTAL (test code = 2229) 7.0 G/DL 6.1-8.3 ALBUMIN (test code = 2201) 4.7 G/DL 3.5-5.2 CALC GLOBULIN (test code = 2240) 2.3 G/DL 1.9-3.7 CALC A/G RATIO (test code = 2234) 2.0 RATIO 1.0-2.6 BILIRUBIN, TOTAL (test code = 2207) 0.3 MG/DL See_Comment [Automated me ssage] The system which generated this result transmitted reference range: <=1.2. The reference range was not used to interpret this result as normal/abnormal. ALKALINE PHOSPHATASE (test code = 2204) 103 U/L 40-123 AST (test code = 2218) 18 U/L 9-50 ALT (test code = 2219) 19 U/L 5-50 LIPID [id number] 00:00:00* Test Item Value Reference Range Interpretation Comme nts CHOLESTEROL (test code = 2210) 210 MG/DL TRIGLYCERIDES (test code = 2232) 113 MG/DL HDL CHOLESTEROL (test code = 2220) 36 MG/DL CALC LDL CHOL (test code = 2237) 151 MG/DL RISK RATIO LDL/HDL (test cod e = 2238) 4.19 RATIO Kvng F AustinCOMPREHENSIVE METABOLIC [id number] 00:00:00* Test Item Value Reference Range Interpretation Comme nts GLUCOSE (test code = 2217) 305 MG/DL BUN (test code = 2208) 10 MG/DL CREATININE (test code = 2214) 0.96 MG/DL eGFR (2020 CKD-EPI) (test co de = 70320) 89 ML/MIN/1.73 CALC BUN/CREAT (test code = 2235) 10 RATIO SODIUM (test code = 2231) 133 MEQ/L POTASSIUM (test code = 2228) 5.5 MEQ/L CHLORIDE (test code = 2215) 97 MEQ/L CARBON DIOXIDE (test code = 2206) 23 MEQ/L CALCIUM (test code = 2209) 9.9 MG/DL PROTEIN, TOTAL (test code = 2229) 7.0 G/DL ALBUMIN (test code = 2201) 4.7 G/DL CALC GLOBULIN (test code = 2240) 2.3 G/DL CALC A/G RATIO (test code = 2234) 2.0 RATIO BILIRUBIN, TOTAL (test code = 2207) 0.3 MG/DL ALKALINE PHOSPHATASE (test code = 2204) 103 U/L AST (test code = 2218) 18 U/L ALT (test code = 2219) 19 U/L Kvng LawsonVITAMIN D, 25 [id number] 00:00:00* Test Item Value Reference Range Interpretation Comme terrence VITAMIN D, 25 OH (test code = 4958) 37 NG/ML Kvng LawsonHEMOGLOBIN [id number] 00:00:00* Test Item Value Reference Range Interpretation Comme terrence HEMOGLOBIN A1c (test code = 19567) 11.4 % Kvng LawsonLIPID [id number] 00:00:00* Test Item Value Reference Range Interpretation Comme nts CHOLESTEROL (test code = 2210) 210 MG/DL TRIGLYCERIDES (test code = 2232) 113 MG/DL HDL CHOLESTEROL (test code = 2220) 36 MG/DL CALC LDL CHOL (test code = 2237) 151 MG/DL RISK RATIO LDL/HDL (test cod e = 2238) 4.19 RATIO Kvng LawsonCOMPREHENSIVE METABOLIC [id number] 00:00:00* Test Item Value Reference Range Interpretation Comme nts GLUCOSE (test code = 2217) 305 MG/DL BUN (test code = 2208) 10 MG/DL CREATININE (test code = 2214) 0.96 MG/DL eGFR (2020 CKD-EPI) (test co de = 85793) 89 ML/MIN/1.73 CALC BUN/CREAT (test code = 2235) 10 RATIO SODIUM (test code = 2231) 133 MEQ/L POTASSIUM (test code = 2228) 5.5 MEQ/L CHLORIDE (test code = 2215) 97 MEQ/L CARBON DIOXIDE (test code = 2206) 23 MEQ/L CALCIUM (test code = 2209) 9.9 MG/DL PROTEIN, TOTAL (test code = 2229) 7.0 G/DL ALBUMIN (test code = 2201) 4.7 G/DL CALC GLOBULIN (test code = 2240) 2.3 G/DL CALC A/G RATIO (test code = 2234) 2.0 RATIO BILIRUBIN, TOTAL (test code = 2207) 0.3 MG/DL ALKALINE PHOSPHATASE (test code = 2204) 103 U/L AST (test code = 2218) 18 U/L ALT (test code = 2219) 19 U/L Kvng LawsonVITAMIN D, 25 [id number] 00:00:00* Test Item Value Reference Range Interpretation Comme terrence VITAMIN D, 25 OH (test code = 4958) 37 NG/ML Kvng LawsonHEMOGLOBIN [id number] 00:00:00* Test Item Value Reference Range Interpretation Comme terrence HEMOGLOBIN A1c (test code = 25885) 11.4 % Kvng LawsonLIPID [id number] 00:00:00* Test Item Value Reference Range Interpretation Comme nts CHOLESTEROL (test code = 2210) 210 MG/DL TRIGLYCERIDES (test code = 2232) 113 MG/DL HDL CHOLESTEROL (test code = 2220) 36 MG/DL CALC LDL CHOL (test code = 2237) 151 MG/DL RISK RATIO LDL/HDL (test cod e = 2238) 4.19 RATIO Kvng LawsonCOMPREHENSIVE METABOLIC [id number] 00:00:00* Test Item Value Reference Range Interpretation Comme nts GLUCOSE (test code = 2217) 305 MG/DL BUN (test code = 2208) 10 MG/DL CREATININE (test code = 2214) 0.96 MG/DL eGFR (2020 CKD-EPI) (test co de = 22344) 89 ML/MIN/1.73 CALC BUN/CREAT (test code = 2235) 10 RATIO SODIUM (test code = 2231) 133 MEQ/L POTASSIUM (test code = 2228) 5.5 MEQ/L CHLORIDE (test code = 2215) 97 MEQ/L CARBON DIOXIDE (test code = 2206) 23 MEQ/L CALCIUM (test code = 2209) 9.9 MG/DL PROTEIN, TOTAL (test code = 2229) 7.0 G/DL ALBUMIN (test code = 2201) 4.7 G/DL CALC GLOBULIN (test code = 2240) 2.3 G/DL CALC A/G RATIO (test code = 2234) 2.0 RATIO BILIRUBIN, TOTAL (test code = 2207) 0.3 MG/DL ALKALINE PHOSPHATASE (test code = 2204) 103 U/L AST (test code = 2218) 18 U/L ALT (test code = 2219) 19 U/L Kvng LawsonVITAMIN D, 25 [id number] 00:00:00* Test Item Value Reference Range Interpretation Comme terrence VITAMIN D, 25 OH (test code = 4958) 37 NG/ML Kvng LawsonHEMOGLOBIN [id number] 00:00:00* Test Item Value Reference Range Interpretation Comme terrence HEMOGLOBIN A1c (test code = 83651) 11.4 % Kvng LawsonLIPID [id number] 05:58:10* Test Item Value Reference Range Interpretation Comme nts CHOLESTEROL (test code = 2210) 277 MG/DL <200 H TRIGLYCERIDES (test code = 2232) 339 MG/DL <150 H HDL CHOLESTEROL (test code = 2220) 41 MG/DL >39 CALC LDL CHOL (test code = 7) 179 MG/DL <100 H NOTE: CALCULATED LDL IS BASED ON ASH-WHYTE METHOD WHICHINCLUDES ADJUSTABLE TRIGLYCERIDE:VLDL CHOLESTEROL RATIO.THIS FACTOR VARIES BY MEASURED TRIGLYCERIDE AND NON-HDLCHOLESTEROL CONCENTRATIONS WITH INCREASED CALCULATED LDL SEENIN HIGHER TRIGLYCERIDE OR LOWER NON-HDL SPECIMENS. FOR MOREINFORMATION, SEE CLIENT ANNOUNCEMENT AT [email or web address] RISK RATIO LDL/HDL (test code = 2238) 4.37 RATIO <3.55 H COMPREHENSIVE METABOLIC [id number] 05:58:10* Test Item Value Reference Range Interpretation Comme terrence GLUCOSE (test code = 2217) 171 MG/DL 70-99 H BUN (test code = 220) 10 MG/DL 8-23 CREATININE (test code = 2214) 0.92 MG/DL 0.80-1.40 eGFR (2020 CKD-EPI) (test code = ) 94 ML/MIN/1.73 >60 CALC BUN/CREAT (test code = 2235) 11 RATIO 6-28 SODIUM (test code = 223) 135 MEQ/L 133-146 POTASSIUM (test code = 2228) 4.6 MEQ/L 3.5-5.4 CHLORIDE (test code = 2215) 96 MEQ/L 95-107 CARBON DIOXIDE (test code = 2206) 24 MEQ/L 19-31 CALCIUM (test code = 2208) 10.0 MG/DL 8.5-10.5 PROTEIN, TOTAL (test code = 222) 7.2 G/DL 6.1-8.3 ALBUMIN (test code = 2201) 4.6 G/DL 3.5-5.2 CALC GLOBULIN (test code = 2240) 2.6 G/DL 1.9-3.7 CALC A/G RATIO (test code = 2234) 1.8 RATIO 1.0-2.6 BILIRUBIN, TOTAL (test code = 2207) 0.4 MG/DL See_Comment [Automated me ssage] The system which generated this result transmitted reference range: <=1.2. The reference range was not used to interpret this result as normal/abnormal. ALKALINE PHOSPHATASE (test code = 4) 107 U/L 40-123 AST (test code = 2218) 19 U/L 9-50 ALT (test code = 2219) 22 U/L 5-50 HEMOGLOBIN [id number] 03:42:55* Test Item Value Reference Range Interpretation Comme nts HEMOGLOBIN A1c (test code = 15106) 7.9 % 4.2-5.6 H [employer] GUIDELINES FOR HGB A1C: PREDIABETES/INCREASED RISK . . . . . . . 5.7-6.4% DIAGNOSIS OF DIABETES . . . . . . . . . >=6.5% WITH CONFIRMATION OR APPROPRIATE SYMPTOMS NOTE: ASSAY MAY BE AFFECTED BY HEMOGLOBINOPATHIES (SICKLE CELL ANEMIA, S-C DISEASE, OTHERS) OR ARTIFICIALLY LOWERED BY DECREASED RED CELL SURVIVAL (HEMOLYTIC ANEMIAS, BLOOD LOSS, ETC.). CONSIDER ALTERNATE TESTING OR LABORATORY CONSULTATION. UNLESS OTHERWISE INDICATED, ALL TESTING PERFORMED [facility] [address] [place] [address] ALTERATION MANAGER: HAVEN BOLANOS M.D. CLIA NUMBER [id number] [facility]. [id number] COMPREHENSIVE METABOLIC [id number] 00:00:00* Test Item Value Reference Range Interpretation Comme nts GLUCOSE (test code = 7) 171 MG/DL BUN (test code = 8) 10 MG/DL CREATININE (test code = 2214) 0.92 MG/DL eGFR (2020 CKD-EPI) (test co de = 14122) 94 ML/MIN/1.73 CALC BUN/CREAT (test code = 2235) 11 RATIO SODIUM (test code = 223) 135 MEQ/L POTASSIUM (test code = 2228) 4.6 MEQ/L CHLORIDE (test code = 2215) 96 MEQ/L CARBON DIOXIDE (test code = 2206) 24 MEQ/L CALCIUM (test code = 2209) 10.0 MG/DL PROTEIN, TOTAL (test code = 2229) 7.2 G/DL ALBUMIN (test code = 2201) 4.6 G/DL CALC GLOBULIN (test code = 2240) 2.6 G/DL CALC A/G RATIO (test code = 2234) 1.8 RATIO BILIRUBIN, TOTAL (test code = 2207) 0.4 MG/DL ALKALINE PHOSPHATASE (test code = 2204) 107 U/L AST (test code = 2218) 19 U/L ALT (test code = 2219) 22 U/L Kvng LawsonHEMOGLOBIN [id number] 00:00:00* Test Item Value Reference Range Interpretation Comme nts HEMOGLOBIN A1c (test code = 19148) 7.9 % Kvng LawsonLIPID [id number] 00:00:00* Test Item Value Reference Range Interpretation Comme nts CHOLESTEROL (test code = 2210) 277 MG/DL TRIGLYCERIDES (test code = 2232) 339 MG/DL HDL CHOLESTEROL (test code = 2220) 41 MG/DL CALC LDL CHOL (test code = 2237) 179 MG/DL RISK RATIO LDL/HDL (test cod e = 2238) 4.37 RATIO Kvng LawsonCOMPREHENSIVE METABOLIC [id number] 00:00:00* Test Item Value Reference Range Interpretation Comme nts GLUCOSE (test code = 2217) 171 MG/DL BUN (test code = 2208) 10 MG/DL CREATININE (test code = 2214) 0.92 MG/DL eGFR (2020 CKD-EPI) (test co de = 93012) 94 ML/MIN/1.73 CALC BUN/CREAT (test code = 2235) 11 RATIO SODIUM (test code = 2231) 135 MEQ/L POTASSIUM (test code = 2228) 4.6 MEQ/L CHLORIDE (test code = 2215) 96 MEQ/L CARBON DIOXIDE (test code = 2206) 24 MEQ/L CALCIUM (test code = 2209) 10.0 MG/DL PROTEIN, TOTAL (test code = 2229) 7.2 G/DL ALBUMIN (test code = 2201) 4.6 G/DL CALC GLOBULIN (test code = 2240) 2.6 G/DL CALC A/G RATIO (test code = 2234) 1.8 RATIO BILIRUBIN, TOTAL (test code = 2207) 0.4 MG/DL ALKALINE PHOSPHATASE (test code = 2204) 107 U/L AST (test code = 2218) 19 U/L ALT (test code = 2219) 22 U/L Kvng LawsonHEMOGLOBIN [id number] 00:00:00* Test Item Value Reference Range Interpretation Comme nts HEMOGLOBIN A1c (test code = 88776) 7.9 % Kvng LawsonLIPID [id number] 00:00:00* Test Item Value Reference Range Interpretation Comme nts CHOLESTEROL (test code = 2210) 277 MG/DL TRIGLYCERIDES (test code = 2232) 339 MG/DL HDL CHOLESTEROL (test code = 2220) 41 MG/DL CALC LDL CHOL (test code = 2237) 179 MG/DL RISK RATIO LDL/HDL (test cod e = 2238) 4.37 RATIO Kvng LawsonCOMPREHENSIVE METABOLIC [id number] 00:00:00* Test Item Value Reference Range Interpretation Comme nts GLUCOSE (test code = 2217) 171 MG/DL BUN (test code = 2208) 10 MG/DL CREATININE (test code = 2214) 0.92 MG/DL eGFR (2020 CKD-EPI) (test co de = 59227) 94 ML/MIN/1.73 CALC BUN/CREAT (test code = 2235) 11 RATIO SODIUM (test code = 2231) 135 MEQ/L POTASSIUM (test code = 2228) 4.6 MEQ/L CHLORIDE (test code = 2215) 96 MEQ/L CARBON DIOXIDE (test code = 2206) 24 MEQ/L CALCIUM (test code = 2209) 10.0 MG/DL PROTEIN, TOTAL (test code = 2229) 7.2 G/DL ALBUMIN (test code = 2201) 4.6 G/DL CALC GLOBULIN (test code = 2240) 2.6 G/DL CALC A/G RATIO (test code = 2234) 1.8 RATIO BILIRUBIN, TOTAL (test code = 2207) 0.4 MG/DL ALKALINE PHOSPHATASE (test code = 2204) 107 U/L AST (test code = 2218) 19 U/L ALT (test code = 2219) 22 U/L Kvng LawsonHEMOGLOBIN [id number] 00:00:00* Test Item Value Reference Range Interpretation Comme nts HEMOGLOBIN A1c (test code = 18534) 7.9 % Kvng LawsonLIPID [id number] 00:00:00* Test Item Value Reference Range Interpretation Comme nts CHOLESTEROL (test code = 2210) 277 MG/DL TRIGLYCERIDES (test code = 2232) 339 MG/DL HDL CHOLESTEROL (test code = 2220) 41 MG/DL CALC LDL CHOL (test code = 2237) 179 MG/DL RISK RATIO LDL/HDL (test cod e = 2238) 4.37 RATIO Kvng LawsonHEMOGLOBIN [id number] 09:40:32* Test Item Value Reference Range Interpretation Comme nts HEMOGLOBIN A1c (test code = 46137) 8.4 % 4.2-5.6 H [employer] GUIDELINES FOR HGB A1C: PREDIABETES/INCREASED RISK . . . . . . . 5.7-6.4% DIAGNOSIS OF DIABETES . . . . . . . . . >=6.5% WITH CONFIRMATION OR APPROPRIATE SYMPTOMS NOTE: ASSAY MAY BE AFFECTED BY HEMOGLOBINOPATHIES (SICKLE CELL ANEMIA, S-C DISEASE, OTHERS) OR ARTIFICIALLY LOWERED BY DECREASED RED CELL SURVIVAL (HEMOLYTIC ANEMIAS, BLOOD LOSS, ETC.). CONSIDER ALTERNATE TESTING OR LABORATORY CONSULTATION. LIPID [id number] 03:14:13* Test Item Value Reference Range Interpretation Comme nts CHOLESTEROL (test code = 2210) 235 MG/DL <200 H TRIGLYCERIDES (test code = 2232) 101 MG/DL <150 HDL CHOLESTEROL (test code = 2220) 36 MG/DL >39 L CALC LDL CHOL (test code = 2237) 177 MG/DL <100 H NOTE: CALCULATED LDL IS BASED ON ASH-WHYTE METHOD WHICHINCLUDES ADJUSTABLE TRIGLYCERIDE:VLDL CHOLESTEROL RATIO.THIS FACTOR VARIES BY MEASURED TRIGLYCERIDE AND NON-HDLCHOLESTEROL CONCENTRATIONS WITH INCREASED CALCULATED LDL SEENIN HIGHER TRIGLYCERIDE OR LOWER NON-HDL SPECIMENS. FOR MOREINFORMATION, SEE CLIENT ANNOUNCEMENT AT [email or web address] RISK RATIO LDL/HDL (test code = 2238) 4.92 RATIO <3.55 H COMPREHENSIVE METABOLIC [id number] 03:14:13* Test Item Value Reference Range Interpretation Comme nts GLUCOSE (test code = 2217) 144 MG/DL 70-99 H BUN (test code = 2207) 8 MG/DL 8-23 CREATININE (test code = 2213) 0.91 MG/DL 0.80-1.40 eGFR (2020 CKD-EPI) (test code = 03969) 95 ML/MIN/1.73 >60 CALC BUN/CREAT (test code = 2234) 9 RATIO 6-28 SODIUM (test code = 2230) 134 MEQ/L 133-146 POTASSIUM (test code = 2227) 5.6 MEQ/L 3.5-5.4 H CHLORIDE (test code = 2214) 99 MEQ/L 95-107 CARBON DIOXIDE (test code = 2205) 25 MEQ/L 19-31 CALCIUM (test code = 2208) 9.6 MG/DL 8.5-10.5 PROTEIN, TOTAL (test code = 2228) 6.8 G/DL 6.1-8.3 ALBUMIN (test code = 2200) 4.3 G/DL 3.5-5.2 CALC GLOBULIN (test code = 2239) 2.5 G/DL 1.9-3.7 CALC A/G RATIO (test code = 2233) 1.7 RATIO 1.0-2.6 BILIRUBIN, TOTAL (test code = 2206) 0.3 MG/DL See_Comment [Automated me ssage] The system which generated this result transmitted reference range: <=1.2. The reference range was not used to interpret this result as normal/abnormal. ALKALINE PHOSPHATASE (test code = 2203) 84 U/L 40-123 AST (test code = 2217) 16 U/L 9-50 ALT (test code = 9) 26 U/L 5-50 UNLESS OTHERWISE INDICATED, ALL TESTING PERFORMED [facility] [address] [place] [address] ALTERATION MANAGER: HAVEN BOLANOS M.D. CLIA NUMBER [id number] [facility]. [id number] HEMOGLOBIN A1c [ADDED]2021-09-15 00:00:00* Test Item Value Reference Range Interpretation Comme nts HEMOGLOBIN A1c (test code = 83537) 8.4 % LIPID PANEL [ADDED]2021-09-15 00:00:00* Test Item Value Reference Range Interpretation Comme nts CHOLESTEROL (test code = 2210) 235 MG/DL TRIGLYCERIDES (test code = 2232) 101 MG/DL HDL CHOLESTEROL (test code = 2220) 36 MG/DL CALC LDL CHOL (test code = 2237) 177 MG/DL RISK RATIO LDL/HDL (test cod e = 2238) 4.92 RATIO COMPREHENSIVE METABOLIC PANEL [ADDED]2021-09-15 00:00:00* Test Item Value Reference Range Interpretation Comme nts GLUCOSE (test code = 2217) 144 MG/DL BUN (test code = 2208) 8 MG/DL CREATININE (test code = 2214) 0.91 MG/DL eGFR (2020 CKD-EPI) (test co de = 39798) 95 ML/MIN/1.73 CALC BUN/CREAT (test code = 2235) 9 RATIO SODIUM (test code = 2231) 134 MEQ/L POTASSIUM (test code = 2228) 5.6 MEQ/L CHLORIDE (test code = 2215) 99 MEQ/L CARBON DIOXIDE (test code = 2206) 25 MEQ/L CALCIUM (test code = 2209) 9.6 MG/DL PROTEIN, TOTAL (test code = 2229) 6.8 G/DL ALBUMIN (test code = 2201) 4.3 G/DL CALC GLOBULIN (test code = 2240) 2.5 G/DL CALC A/G RATIO (test code = 2234) 1.7 RATIO BILIRUBIN, TOTAL (test code = 2207) 0.3 MG/DL ALKALINE PHOSPHATASE (test code = 2204) 84 U/L AST (test code = 2218) 16 U/L ALT (test code = 2219) 26 U/L HEMOGLOBIN A1c [ADDED]2021-09-15 00:00:00* Test Item Value Reference Range Interpretation Comme nts HEMOGLOBIN A1c (test code = 24050) 8.4 % LIPID PANEL [ADDED]2021-09-15 00:00:00* Test Item Value Reference Range Interpretation Comme nts CHOLESTEROL (test code = 2210) 235 MG/DL TRIGLYCERIDES (test code = 2232) 101 MG/DL HDL CHOLESTEROL (test code = 2220) 36 MG/DL CALC LDL CHOL (test code = 2237) 177 MG/DL RISK RATIO LDL/HDL (test cod e = 2238) 4.92 RATIO COMPREHENSIVE METABOLIC PANEL [ADDED]2021-09-15 00:00:00* Test Item Value Reference Range Interpretation Comme nts GLUCOSE (test code = 2217) 144 MG/DL BUN (test code = 2208) 8 MG/DL CREATININE (test code = 2214) 0.91 MG/DL eGFR (2020 CKD-EPI) (test co de = 50719) 95 ML/MIN/1.73 CALC BUN/CREAT (test code = 2235) 9 RATIO SODIUM (test code = 2231) 134 MEQ/L POTASSIUM (test code = 2228) 5.6 MEQ/L CHLORIDE (test code = 2215) 99 MEQ/L CARBON DIOXIDE (test code = 2206) 25 MEQ/L CALCIUM (test code = 2209) 9.6 MG/DL PROTEIN, TOTAL (test code = 2229) 6.8 G/DL ALBUMIN (test code = 2201) 4.3 G/DL CALC GLOBULIN (test code = 2240) 2.5 G/DL CALC A/G RATIO (test code = 2234) 1.7 RATIO BILIRUBIN, TOTAL (test code = 2207) 0.3 MG/DL ALKALINE PHOSPHATASE (test code = 2204) 84 U/L AST (test code = 2218) 16 U/L ALT (test code = 2219) 26 U/L HEMOGLOBIN A1c [ADDED]2021-09-15 00:00:00* Test Item Value Reference Range Interpretation Comme nts HEMOGLOBIN A1c (test code = 81539) 8.4 % LIPID PANEL [ADDED]2021-09-15 00:00:00* Test Item Value Reference Range Interpretation Comme nts CHOLESTEROL (test code = 2210) 235 MG/DL TRIGLYCERIDES (test code = 2232) 101 MG/DL HDL CHOLESTEROL (test code = 2220) 36 MG/DL CALC LDL CHOL (test code = 2237) 177 MG/DL RISK RATIO LDL/HDL (test cod e = 2238) 4.92 RATIO Kvng F AustinLIPID PANEL [ADDED]2021-09-15 00:00:00* Test Item Value Reference Range Interpretation Comme nts CHOLESTEROL (test code = 2210) 235 MG/DL TRIGLYCERIDES (test code = 2232) 101 MG/DL HDL CHOLESTEROL (test code = 2220) 36 MG/DL CALC LDL CHOL (test code = 2237) 177 MG/DL RISK RATIO LDL/HDL (test cod e = 2238) 4.92 RATIO COMPREHENSIVE METABOLIC PANEL [ADDED]2021-09-15 00:00:00* Test Item Value Reference Range Interpretation Comme nts GLUCOSE (test code = 2217) 144 MG/DL BUN (test code = 2208) 8 MG/DL CREATININE (test code = 2214) 0.91 MG/DL eGFR (2020 CKD-EPI) (test co de = 11135) 95 ML/MIN/1.73 CALC BUN/CREAT (test code = 2235) 9 RATIO SODIUM (test code = 2231) 134 MEQ/L POTASSIUM (test code = 2228) 5.6 MEQ/L CHLORIDE (test code = 2215) 99 MEQ/L CARBON DIOXIDE (test code = 2206) 25 MEQ/L CALCIUM (test code = 2209) 9.6 MG/DL PROTEIN, TOTAL (test code = 2229) 6.8 G/DL ALBUMIN (test code = 2201) 4.3 G/DL CALC GLOBULIN (test code = 2240) 2.5 G/DL CALC A/G RATIO (test code = 2234) 1.7 RATIO BILIRUBIN, TOTAL (test code = 2207) 0.3 MG/DL ALKALINE PHOSPHATASE (test code = 2204) 84 U/L AST (test code = 2218) 16 U/L ALT (test code = 2219) 26 U/L COMPREHENSIVE METABOLIC PANEL [ADDED]2021-09-15 00:00:00* Test Item Value Reference Range Interpretation Comme nts GLUCOSE (test code = 2217) 144 MG/DL BUN (test code = 2208) 8 MG/DL CREATININE (test code = 2214) 0.91 MG/DL eGFR (2020 CKD-EPI) (test co de = 23470) 95 ML/MIN/1.73 CALC BUN/CREAT (test code = 2235) 9 RATIO SODIUM (test code = 2231) 134 MEQ/L POTASSIUM (test code = 2228) 5.6 MEQ/L CHLORIDE (test code = 2215) 99 MEQ/L CARBON DIOXIDE (test code = 2206) 25 MEQ/L CALCIUM (test code = 2209) 9.6 MG/DL PROTEIN, TOTAL (test code = 2229) 6.8 G/DL ALBUMIN (test code = 2201) 4.3 G/DL CALC GLOBULIN (test code = 2240) 2.5 G/DL CALC A/G RATIO (test code = 2234) 1.7 RATIO BILIRUBIN, TOTAL (test code = 2207) 0.3 MG/DL ALKALINE PHOSPHATASE (test code = 2204) 84 U/L AST (test code = 2218) 16 U/L ALT (test code = 2219) 26 U/L Kvng LawsonHEMOGLOBIN A1c [ADDED]2021-09-15 00:00:00* Test Item Value Reference Range Interpretation Comme nts HEMOGLOBIN A1c (test code = 05541) 8.4 % [place]ng [place]ozo AustinLIPID PANEL [ADDED]2021-09-15 00:00:00* Test Item Value Reference Range Interpretation Comme nts CHOLESTEROL (test code = 2210) 235 MG/DL TRIGLYCERIDES (test code = 2232) 101 MG/DL HDL CHOLESTEROL (test code = 2220) 36 MG/DL CALC LDL CHOL (test code = 2237) 177 MG/DL RISK RATIO LDL/HDL (test cod e = 2238) 4.92 RATIO Kvng LawsonCOMPREHENSIVE METABOLIC PANEL [ADDED]2021-09-15 00:00:00* Test Item Value Reference Range Interpretation Comme nts GLUCOSE (test code = 2217) 144 MG/DL BUN (test code = 2208) 8 MG/DL CREATININE (test code = 2214) 0.91 MG/DL eGFR (2020 CKD-EPI) (test co de = 59121) 95 ML/MIN/1.73 CALC BUN/CREAT (test code = 2235) 9 RATIO SODIUM (test code = 2231) 134 MEQ/L POTASSIUM (test code = 2228) 5.6 MEQ/L CHLORIDE (test code = 2215) 99 MEQ/L CARBON DIOXIDE (test code = 2206) 25 MEQ/L CALCIUM (test code = 2209) 9.6 MG/DL PROTEIN, TOTAL (test code = 2229) 6.8 G/DL ALBUMIN (test code = 2201) 4.3 G/DL CALC GLOBULIN (test code = 2240) 2.5 G/DL CALC A/G RATIO (test code = 2234) 1.7 RATIO BILIRUBIN, TOTAL (test code = 2207) 0.3 MG/DL ALKALINE PHOSPHATASE (test code = 2204) 84 U/L AST (test code = 2218) 16 U/L ALT (test code = 2219) 26 U/L Kvng LawsonHEMOGLOBIN A1c [ADDED]2021-09-15 00:00:00* Test Item Value Reference Range Interpretation Comme nts HEMOGLOBIN A1c (test code = 64842) 8.4 % Kvng LawsonLIPID PANEL [ADDED]2021-09-15 00:00:00* Test Item Value Reference Range Interpretation Comme nts CHOLESTEROL (test code = 2210) 235 MG/DL TRIGLYCERIDES (test code = 2232) 101 MG/DL HDL CHOLESTEROL (test code = 2220) 36 MG/DL CALC LDL CHOL (test code = 2237) 177 MG/DL RISK RATIO LDL/HDL (test cod e = 2238) 4.92 RATIO Kvng LawsonCOMPREHENSIVE METABOLIC PANEL [ADDED]2021-09-15 00:00:00* Test Item Value Reference Range Interpretation Comme nts GLUCOSE (test code = 2217) 144 MG/DL BUN (test code = 2208) 8 MG/DL CREATININE (test code = 2214) 0.91 MG/DL eGFR (2020 CKD-EPI) (test co de = 22848) 95 ML/MIN/1.73 CALC BUN/CREAT (test code = 2235) 9 RATIO SODIUM (test code = 2231) 134 MEQ/L POTASSIUM (test code = 2228) 5.6 MEQ/L CHLORIDE (test code = 2215) 99 MEQ/L CARBON DIOXIDE (test code = 2206) 25 MEQ/L CALCIUM (test code = 2209) 9.6 MG/DL PROTEIN, TOTAL (test code = 2229) 6.8 G/DL ALBUMIN (test code = 2201) 4.3 G/DL CALC GLOBULIN (test code = 2240) 2.5 G/DL CALC A/G RATIO (test code = 2234) 1.7 RATIO BILIRUBIN, TOTAL (test code = 2207) 0.3 MG/DL ALKALINE PHOSPHATASE (test code = 2204) 84 U/L AST (test code = 2218) 16 U/L ALT (test code = 2219) 26 U/L Kvng LawsonHEMOGLOBIN A1c [ADDED]2021-09-15 00:00:00* Test Item Value Reference Range Interpretation Comme nts HEMOGLOBIN A1c (test code = 87286) 8.4 % Kvng [place], [id number] 12:24:44SPECIMEN NUMBER: [id number] CULTURE, ANAEROBIC SPECIMEN NUMBER: [id number] SPECIMEN COMMENT: R EAR SOURCE: EAR REPORT STATUS: FINAL FINAL REPORT: 06/21/2021 NO ANAEROBES RECOVERED AFTER 5 DAYS PRELIMINARY REPORT #2: 06/20/2021 NO ANAEROBES ISOLATED AT 4 DAYS PRELIMINARY ANAEROBE REPORT: 06/19/2021 NO ANAEROBES ISOLATED AT 3 DAYS ADDITIONAL OBSERVATIONS: 06/20/2021 POTENTIAL AEROBIC PATHOGEN RECOVERED.NO FURTHER WORKUP UNLESS REQUESTED.CULTURE, [id number] 00:00:00* Test Item Value Reference Range Interpretation Comme nts CULTURE, ANAEROBIC (test code = 14250) SPECIMEN NUMBER: [id number] CULTURE, [id number] 00:00:00* Test Item Value Reference Range Interpretation Comme nts CULTURE, ANAEROBIC (test code = 71841) SPECIMEN NUMBER: [id number] CULTURE, [id number] 00:00:00* Test Item Value Reference Range Interpretation Comme nts CULTURE, ANAEROBIC (test code = 47339) SPECIMEN NUMBER: [id number] CULTURE, [id number] 00:00:00* Test Item Value Reference Range Interpretation Comme nts CULTURE, ANAEROBIC (test code = 67722) SPECIMEN NUMBER: [id number] Kvng LawsonCULTURE, [id number] 00:00:00* Test Item Value Reference Range Interpretation Comme nts CULTURE, ANAEROBIC (test code = 31630) SPECIMEN NUMBER: [id number] Kvng LawsonCULTURE, [id number] 00:00:00* Test Item Value Reference Range Interpretation Comme nts CULTURE, ANAEROBIC (test code = 98527) SPECIMEN NUMBER: [id number] Kvng LawsonHEMOGLOBIN [id number] 07:30:03* Test Item Value Reference Range Interpretation Comme nts HEMOGLOBIN A1c (test code = 11070) 10.1 % 4.2-5.6 H [employer] GUIDELINES FOR HGB A1C: PREDIABETES/INCREASED RISK . . . . . . . 5.7-6.4% DIAGNOSIS OF DIABETES . . . . . . . . . >=6.5% WITH CONFIRMATION OR APPROPRIATE SYMPTOMS NOTE: ASSAY MAY BE AFFECTED BY HEMOGLOBINOPATHIES (SICKLE CELL ANEMIA, S-C DISEASE, OTHERS) OR ARTIFICIALLY LOWERED BY DECREASED RED CELL SURVIVAL (HEMOLYTIC ANEMIAS, BLOOD LOSS, ETC.). CONSIDER ALTERNATE TESTING OR LABORATORY CONSULTATION. COMPREHENSIVE METABOLIC [id number] 06:10:34* Test Item Value Reference Range Interpretation Comme nts GLUCOSE (test code = 2216) 173 MG/DL 70-99 H BUN (test code = 2207) 9 MG/DL 8-23 CREATININE (test code = 2213) 1.02 MG/DL 0.80-1.40 eGFR (2020 CKD-EPI) (test code = 69816) 83 ML/MIN/1.73 >60 CALC BUN/CREAT (test code = 2234) 9 RATIO 6-28 SODIUM (test code = 2230) 131 MEQ/L 133-146 L POTASSIUM (test code = 2227) 4.9 MEQ/L 3.5-5.4 CHLORIDE (test code = 2214) 94 MEQ/L 95-107 L CARBON DIOXIDE (test code = 2205) 24 MEQ/L 19-31 CALCIUM (test code = 2208) 9.5 MG/DL 8.5-10.5 PROTEIN, TOTAL (test code = 2228) 6.8 G/DL 6.1-8.3 ALBUMIN (test code = 2200) 4.5 G/DL 3.5-5.2 CALC GLOBULIN (test code = 2240) 2.3 G/DL 1.9-3.7 CALC A/G RATIO (test code = 2233) 2.0 RATIO 1.0-2.6 BILIRUBIN, TOTAL (test code = 2206) 0.4 MG/DL See_Comment [Automated me ssage] The system which generated this result transmitted reference range: <=1.2. The reference range was not used to interpret this result as normal/abnormal. ALKALINE PHOSPHATASE (test code = 2203) 80 U/L 40-123 AST (test code = 2218) 15 U/L 9-50 ALT (test code = 2219) 13 U/L 5-50 LIPID [id number] 06:10:34* Test Item Value Reference Range Interpretation Comme nts CHOLESTEROL (test code = 2210) 188 MG/DL <200 TRIGLYCERIDES (test code = 2232) 169 MG/DL <150 H HDL CHOLESTEROL (test code = 2220) 41 MG/DL >39 CALC LDL CHOL (test code = 2236) 118 MG/DL <100 H NOTE: CALCULATED LDL IS BASED ON ASH-WHYTE METHOD WHICHINCLUDES ADJUSTABLE TRIGLYCERIDE:VLDL CHOLESTEROL RATIO.THIS FACTOR VARIES BY MEASURED TRIGLYCERIDE AND NON-HDLCHOLESTEROL CONCENTRATIONS WITH INCREASED CALCULATED LDL SEENIN HIGHER TRIGLYCERIDE OR LOWER NON-HDL SPECIMENS. FOR MOREINFORMATION, SEE CLIENT ANNOUNCEMENT AT [email or web address] RISK RATIO LDL/HDL (test code = 2238) 2.88 RATIO <3.55 UNLESS OTHERW ISE INDICATED, ALL TESTING PERFORMED [facility] [address] [place] [address] ALTERATION MANAGER: HAVEN BOLANOS M.D. [place] NUMBER [id number] [facility]. [id number] HEMOGLOBIN [id number] 00:00:00* Test Item Value Reference Range Interpretation Comme nts HEMOGLOBIN A1c (test code = 63230) 10.1 % Kvng [place]ozo AustinHEMOGLOBIN [id number] 00:00:00* Test Item Value Reference Range Interpretation Comme nts HEMOGLOBIN A1c (test code = 75841) 10.1 % COMPREHENSIVE METABOLIC [id number] 00:00:00* Test Item Value Reference Range Interpretation Comme nts GLUCOSE (test code = 2217) 173 MG/DL BUN (test code = 2208) 9 MG/DL CREATININE (test code = 2214) 1.02 MG/DL eGFR (2020 CKD-EPI) (test co de = 23665) 83 ML/MIN/1.73 CALC BUN/CREAT (test code = 2235) 9 RATIO SODIUM (test code = 2231) 131 MEQ/L POTASSIUM (test code = 2228) 4.9 MEQ/L CHLORIDE (test code = 2215) 94 MEQ/L CARBON DIOXIDE (test code = 2206) 24 MEQ/L CALCIUM (test code = 2209) 9.5 MG/DL PROTEIN, TOTAL (test code = 2229) 6.8 G/DL ALBUMIN (test code = 2201) 4.5 G/DL CALC GLOBULIN (test code = 2240) 2.3 G/DL CALC A/G RATIO (test code = 2234) 2.0 RATIO BILIRUBIN, TOTAL (test code = 2207) 0.4 MG/DL ALKALINE PHOSPHATASE (test code = 2204) 80 U/L AST (test code = 2218) 15 U/L ALT (test code = 2219) 13 U/L LIPID [id number] 00:00:00* Test Item Value Reference Range Interpretation Comme nts CHOLESTEROL (test code = 2210) 188 MG/DL TRIGLYCERIDES (test code = 2232) 169 MG/DL HDL CHOLESTEROL (test code = 2220) 41 MG/DL CALC LDL CHOL (test code = 2237) 118 MG/DL RISK RATIO LDL/HDL (test cod e = 2238) 2.88 RATIO HEMOGLOBIN [id number] 00:00:00* Test Item Value Reference Range Interpretation Comme nts HEMOGLOBIN A1c (test code = 92147) 10.1 % COMPREHENSIVE METABOLIC [id number] 00:00:00* Test Item Value Reference Range Interpretation Comme nts GLUCOSE (test code = 2217) 173 MG/DL BUN (test code = 2208) 9 MG/DL CREATININE (test code = 2214) 1.02 MG/DL eGFR (2020 CKD-EPI) (test co de = 22442) 83 ML/MIN/1.73 CALC BUN/CREAT (test code = 2235) 9 RATIO SODIUM (test code = 2231) 131 MEQ/L POTASSIUM (test code = 2228) 4.9 MEQ/L CHLORIDE (test code = 2215) 94 MEQ/L CARBON DIOXIDE (test code = 2206) 24 MEQ/L CALCIUM (test code = 2209) 9.5 MG/DL PROTEIN, TOTAL (test code = 2229) 6.8 G/DL ALBUMIN (test code = 2201) 4.5 G/DL CALC GLOBULIN (test code = 2240) 2.3 G/DL CALC A/G RATIO (test code = 2234) 2.0 RATIO BILIRUBIN, TOTAL (test code = 2207) 0.4 MG/DL ALKALINE PHOSPHATASE (test code = 2204) 80 U/L AST (test code = 2218) 15 U/L ALT (test code = 2219) 13 U/L LIPID [id number] 00:00:00* Test Item Value Reference Range Interpretation Comme nts CHOLESTEROL (test code = 2210) 188 MG/DL TRIGLYCERIDES (test code = 2232) 169 MG/DL HDL CHOLESTEROL (test code = 2220) 41 MG/DL CALC LDL CHOL (test code = 2237) 118 MG/DL RISK RATIO LDL/HDL (test cod e = 2238) 2.88 RATIO HEMOGLOBIN [id number] 00:00:00* Test Item Value Reference Range Interpretation Comme nts HEMOGLOBIN A1c (test code = 37222) 10.1 % COMPREHENSIVE METABOLIC [id number] 00:00:00* Test Item Value Reference Range Interpretation Comme nts GLUCOSE (test code = 2217) 173 MG/DL BUN (test code = 2208) 9 MG/DL CREATININE (test code = 2214) 1.02 MG/DL eGFR (2020 CKD-EPI) (test co de = 47506) 83 ML/MIN/1.73 CALC BUN/CREAT (test code = 2235) 9 RATIO SODIUM (test code = 2231) 131 MEQ/L POTASSIUM (test code = 2228) 4.9 MEQ/L CHLORIDE (test code = 2215) 94 MEQ/L CARBON DIOXIDE (test code = 2206) 24 MEQ/L CALCIUM (test code = 2209) 9.5 MG/DL PROTEIN, TOTAL (test code = 2229) 6.8 G/DL ALBUMIN (test code = 2201) 4.5 G/DL CALC GLOBULIN (test code = 2240) 2.3 G/DL CALC A/G RATIO (test code = 2234) 2.0 RATIO BILIRUBIN, TOTAL (test code = 2207) 0.4 MG/DL ALKALINE PHOSPHATASE (test code = 2204) 80 U/L AST (test code = 2218) 15 U/L ALT (test code = 2219) 13 U/L LIPID [id number] 00:00:00* Test Item Value Reference Range Interpretation Comme nts CHOLESTEROL (test code = 2210) 188 MG/DL TRIGLYCERIDES (test code = 2232) 169 MG/DL HDL CHOLESTEROL (test code = 2220) 41 MG/DL CALC LDL CHOL (test code = 2237) 118 MG/DL RISK RATIO LDL/HDL (test cod e = 2238) 2.88 RATIO COMPREHENSIVE METABOLIC [id number] 00:00:00* Test Item Value Reference Range Interpretation Comme nts GLUCOSE (test code = 2217) 173 MG/DL BUN (test code = 2208) 9 MG/DL CREATININE (test code = 2214) 1.02 MG/DL eGFR (2020 CKD-EPI) (test co de = 75150) 83 ML/MIN/1.73 CALC BUN/CREAT (test code = 2235) 9 RATIO SODIUM (test code = 2231) 131 MEQ/L POTASSIUM (test code = 2228) 4.9 MEQ/L CHLORIDE (test code = 2215) 94 MEQ/L CARBON DIOXIDE (test code = 2206) 24 MEQ/L CALCIUM (test code = 2209) 9.5 MG/DL PROTEIN, TOTAL (test code = 2229) 6.8 G/DL ALBUMIN (test code = 2201) 4.5 G/DL CALC GLOBULIN (test code = 2240) 2.3 G/DL CALC A/G RATIO (test code = 2234) 2.0 RATIO BILIRUBIN, TOTAL (test code = 2207) 0.4 MG/DL ALKALINE PHOSPHATASE (test code = 2204) 80 U/L AST (test code = 2218) 15 U/L ALT (test code = 2219) 13 U/L Kvng LawsonLIPID [id number] 00:00:00* Test Item Value Reference Range Interpretation Comme nts CHOLESTEROL (test code = 2210) 188 MG/DL TRIGLYCERIDES (test code = 2232) 169 MG/DL HDL CHOLESTEROL (test code = 2220) 41 MG/DL CALC LDL CHOL (test code = 2237) 118 MG/DL RISK RATIO LDL/HDL (test cod e = 2238) 2.88 RATIO Kvng LawsonHEMOGLOBIN [id number] 00:00:00* Test Item Value Reference Range Interpretation Comme nts HEMOGLOBIN A1c (test code = 05088) 10.1 % Kvng LawsonCOMPREHENSIVE METABOLIC [id number] 00:00:00* Test Item Value Reference Range Interpretation Comme nts GLUCOSE (test code = 2217) 173 MG/DL BUN (test code = 2208) 9 MG/DL CREATININE (test code = 2214) 1.02 MG/DL eGFR (2020 CKD-EPI) (test co de = 43074) 83 ML/MIN/1.73 CALC BUN/CREAT (test code = 2235) 9 RATIO SODIUM (test code = 2231) 131 MEQ/L POTASSIUM (test code = 2228) 4.9 MEQ/L CHLORIDE (test code = 2215) 94 MEQ/L CARBON DIOXIDE (test code = 2206) 24 MEQ/L CALCIUM (test code = 2209) 9.5 MG/DL PROTEIN, TOTAL (test code = 2229) 6.8 G/DL ALBUMIN (test code = 2201) 4.5 G/DL CALC GLOBULIN (test code = 2240) 2.3 G/DL CALC A/G RATIO (test code = 2234) 2.0 RATIO BILIRUBIN, TOTAL (test code = 2207) 0.4 MG/DL ALKALINE PHOSPHATASE (test code = 2204) 80 U/L AST (test code = 2218) 15 U/L ALT (test code = 2219) 13 U/L Kvng LawsonLIPID [id number] 00:00:00* Test Item Value Reference Range Interpretation Comme nts CHOLESTEROL (test code = 2210) 188 MG/DL TRIGLYCERIDES (test code = 2232) 169 MG/DL HDL CHOLESTEROL (test code = 2220) 41 MG/DL CALC LDL CHOL (test code = 2237) 118 MG/DL RISK RATIO LDL/HDL (test cod e = 2238) 2.88 RATIO Kvng LawsonHEMOGLOBIN [id number] 00:00:00* Test Item Value Reference Range Interpretation Comme terrence HEMOGLOBIN A1c (test code = 47293) 10.1 % Kvng LawsonCOMPREHENSIVE METABOLIC [id number] 00:00:00* Test Item Value Reference Range Interpretation Comme nts GLUCOSE (test code = 2217) 173 MG/DL BUN (test code = 2208) 9 MG/DL CREATININE (test code = 2214) 1.02 MG/DL eGFR (2020 CKD-EPI) (test co de = 37467) 83 ML/MIN/1.73 CALC BUN/CREAT (test code = 2235) 9 RATIO SODIUM (test code = 2231) 131 MEQ/L POTASSIUM (test code = 2228) 4.9 MEQ/L CHLORIDE (test code = 2215) 94 MEQ/L CARBON DIOXIDE (test code = 2206) 24 MEQ/L CALCIUM (test code = 2209) 9.5 MG/DL PROTEIN, TOTAL (test code = 2229) 6.8 G/DL ALBUMIN (test code = 2201) 4.5 G/DL CALC GLOBULIN (test code = 2240) 2.3 G/DL CALC A/G RATIO (test code = 2234) 2.0 RATIO BILIRUBIN, TOTAL (test code = 2207) 0.4 MG/DL ALKALINE PHOSPHATASE (test code = 2204) 80 U/L AST (test code = 2218) 15 U/L ALT (test code = 2219) 13 U/L Kvng LawsonLIPID [id number] 00:00:00* Test Item Value Reference Range Interpretation Comme nts CHOLESTEROL (test code = 2210) 188 MG/DL TRIGLYCERIDES (test code = 2232) 169 MG/DL HDL CHOLESTEROL (test code = 2220) 41 MG/DL CALC LDL CHOL (test code = 2237) 118 MG/DL RISK RATIO LDL/HDL (test cod e = 2238) 2.88 RATIO Kvng LawsonXR CERVICAL SPINE 2 [id number] 04:30:27XR CERVICAL SPINE 2 VW HISTORY: Male 60 years pain COMPARISON: None FINDINGS: The vertebral bodies are normal in height and in normal alignment. Theatlantodental space is normal. The prevertebral soft tissues areunremarkable. No more than mild spondylotic changes are present. Mild to moderateuncinate hypertrophy is also noted bilaterally at the C5-C6 and C6-E8synymn. No acute osseous abnormality.[facility], Radiant Results Inft User - 08/18/2020 11:31 PM CDTXR CERVICAL SPINE 2 VWHISTORY: Male 60 years pain COMPARISON: NoneFINDINGS:The vertebral bodies are normal in height and in normal alignment. Theatlantodental space is normal. The prevertebral soft tissues areunremarkable.No more than mild spondylotic changes are present. Mild to moderateuncinate hypertrophy is also noted bilaterally at the C5-C6 and C6- C5ujwiml.No acute osseous abnormality.[facility] VW [id number] 19:07:53Impression: Status post left wrist ORIF. No evidence of acute fracture or hardwarecomplication. 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 RL: [id number] History: Left wrist pain. Exam: XR WRIST 3+ VW LEFT Date: 08/18/2020 1:46 PM Ordering provider: JUAN C LANG Technical quality: Adequate Comparison: None available. Findings: Frontal, lateral, and oblique views of the left wrist areobtained. There are chronic ossifications adjacent to the ulnar styloidmeasuring 5 mm and 4 mm. Surgical plate and screws are noted in the distalleft radius. The hardware is intact and in position. There is solid bonycallus. No evidence of acute fractureor dislocation. No abnormalperiprosthetic lucencies. [facility], Radiant Results Inft User - 08/18/2020 5:15 PM CDTHistory: Left wrist pain.Exam: XR WRIST 3+ VW LEFTDate: 08/18/2020 1:46 PMOrdering provider:JUAN C Bhandari quality: AdequateComparison: None available.Findings: Frontal, lateral, and oblique views of the left wrist areobtained. There are chronic ossifications adjacent to the ulnar st yloidmeasuring 5 mm and 4 mm. Surgical plate and screws are noted in the distalleft radius. The hardware is intact and in position. There is solid bonycallus. No evidence of acute fracture or dislocation. No abnormalperiprosthetic lucencies.IMPRESSIONImpression:Status post left wrist ORIF. 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.RL: [id number] [facility] CenterHEMO[facility]IN A[facility]c 2020-08-13 00:00:00* Test Item Value Reference Range Interpretation Comme nts HEMOGLOBIN A1c (test code = 26316) 8.9 % LIPID [id number] 00:00:00* Test Item Value Reference Range Interpretation Comme nts CHOLESTEROL (test code = 2210) 123 MG/DL TRIGLYCERIDES (test code = 2232) 103 MG/DL HDL CHOLESTEROL (test code = 2220) 33 MG/DL CALC LDL CHOL (test code = 2237) 71 MG/DL RISK RATIO LDL/HDL (test cod e = 2238) 2.15 RATIO LIPID [id number] 00:00:00* Test Item Value Reference Range Interpretation Comme nts CHOLESTEROL (test code = 2210) 123 MG/DL TRIGLYCERIDES (test code = 2232) 103 MG/DL HDL CHOLESTEROL (test code = 2220) 33 MG/DL CALC LDL CHOL (test code = 2237) 71 MG/DL RISK RATIO LDL/HDL (test cod e = 2238) 2.15 RATIO Kvng LawsonCOMPREHENSIVE METABOLIC [id number] 00:00:00* Test Item Value Reference Range Interpretation Comme nts GLUCOSE (test code = 221) 179 MG/DL BUN (test code = 2208) 10 MG/DL CREATININE (test code = 2214) 0.81 MG/DL eGFR AMER. (test cod e = 03238) 111 ML/MIN/1.73 eGFR NON- AMER. (test code = 52148) 96 ML/MIN/1.73 CALC BUN/CREAT (test code = 2235) 12 RATIO SODIUM (test code = 2231) 135 MEQ/L POTASSIUM (test code = 2228) 5.0 MEQ/L CHLORIDE (test code = 2215) 100 MEQ/L CARBON DIOXIDE (test code = 2206) 24 MEQ/L CALCIUM (test code = 2209) 9.4 MG/DL PROTEIN, TOTAL (test code = 222) 6.5 G/DL ALBUMIN (test code = 2201) 4.5 G/DL CALC GLOBULIN (test code = 2240) 2.0 G/DL CALC A/G RATIO (test code = 2234) 2.3 RATIO BILIRUBIN, TOTAL (test code = 2207) 0.5 MG/DL ALKALINE PHOSPHATASE (test code = 2204) 72 U/L AST (test code = 2218) 11 U/L ALT (test code = 2219) 16 U/L PSA, [id number] 00:00:00* Test Item Value Reference Range Interpretation Comme nts PSA, TOTAL (test code = 2606) 0.48 NG/ML HEMOGLOBIN [id number] 00:00:00* Test Item Value Reference Range Interpretation Comme nts HEMOGLOBIN A1c (test code = 42798) 8.9 % LIPID [id number] 00:00:00* Test Item Value Reference Range Interpretation Comme nts CHOLESTEROL (test code = 2210) 123 MG/DL TRIGLYCERIDES (test code = 2232) 103 MG/DL HDL CHOLESTEROL (test code = 2220) 33 MG/DL CALC LDL CHOL (test code = 223) 71 MG/DL RISK RATIO LDL/HDL (test cod e = 2238) 2.15 RATIO COMPREHENSIVE METABOLIC [id number] 00:00:00* Test Item Value Reference Range Interpretation Comme nts GLUCOSE (test code = 2216) 179 MG/DL BUN (test code = 2208) 10 MG/DL CREATININE (test code = 2214) 0.81 MG/DL eGFR AMER. (test cod e = 24155) 111 ML/MIN/1.73 eGFR NON- AMER. (test code = 05401) 96 ML/MIN/1.73 CALC BUN/CREAT (test code = 2235) 12 RATIO SODIUM (test code = 2231) 135 MEQ/L POTASSIUM (test code = 2228) 5.0 MEQ/L CHLORIDE (test code = 2215) 100 MEQ/L CARBON DIOXIDE (test code = 2206) 24 MEQ/L CALCIUM (test code = 2209) 9.4 MG/DL PROTEIN, TOTAL (test code = 2229) 6.5 G/DL ALBUMIN (test code = 2201) 4.5 G/DL CALC GLOBULIN (test code = 2240) 2.0 G/DL CALC A/G RATIO (test code = 2234) 2.3 RATIO BILIRUBIN, TOTAL (test code = 2207) 0.5 MG/DL ALKALINE PHOSPHATASE (test code = 2204) 72 U/L AST (test code = 2218) 11 U/L ALT (test code = 2219) 16 U/L PSA, [id number] 00:00:00* Test Item Value Reference Range Interpretation Comme nts PSA, TOTAL (test code = 2606) 0.48 NG/ML HEMOGLOBIN [id number] 00:00:00* Test Item Value Reference Range Interpretation Comme nts HEMOGLOBIN A1c (test code = 97984) 8.9 % LIPID [id number] 00:00:00* Test Item Value Reference Range Interpretation Comme nts CHOLESTEROL (test code = 2210) 123 MG/DL TRIGLYCERIDES (test code = 2232) 103 MG/DL HDL CHOLESTEROL (test code = 2220) 33 MG/DL CALC LDL CHOL (test code = 2237) 71 MG/DL RISK RATIO LDL/HDL (test cod e = 2238) 2.15 RATIO COMPREHENSIVE METABOLIC [id number] 00:00:00* Test Item Value Reference Range Interpretation Comme nts GLUCOSE (test code = 2217) 179 MG/DL BUN (test code = 2208) 10 MG/DL CREATININE (test code = 2214) 0.81 MG/DL eGFR AMER. (test cod e = 13593) 111 ML/MIN/1.73 eGFR NON- AMER. (test code = 38954) 96 ML/MIN/1.73 CALC BUN/CREAT (test code = 2235) 12 RATIO SODIUM (test code = 2231) 135 MEQ/L POTASSIUM (test code = 2228) 5.0 MEQ/L CHLORIDE (test code = 2215) 100 MEQ/L CARBON DIOXIDE (test code = 2206) 24 MEQ/L CALCIUM (test code = 2209) 9.4 MG/DL PROTEIN, TOTAL (test code = 2229) 6.5 G/DL ALBUMIN (test code = 2201) 4.5 G/DL CALC GLOBULIN (test code = 2240) 2.0 G/DL CALC A/G RATIO (test code = 2234) 2.3 RATIO BILIRUBIN, TOTAL (test code = 2207) 0.5 MG/DL ALKALINE PHOSPHATASE (test code = 2204) 72 U/L AST (test code = 2218) 11 U/L ALT (test code = 2219) 16 U/L PSA, [id number] 00:00:00* Test Item Value Reference Range Interpretation Comme nts PSA, TOTAL (test code = 2606) 0.48 NG/ML COMPREHENSIVE METABOLIC [id number] 00:00:00* Test Item Value Reference Range Interpretation Comme nts GLUCOSE (test code = 2217) 179 MG/DL BUN (test code = 2208) 10 MG/DL CREATININE (test code = 2214) 0.81 MG/DL eGFR AMER. (test cod e = 09363) 111 ML/MIN/1.73 eGFR NON- AMER. (test code = 22211) 96 ML/MIN/1.73 CALC BUN/CREAT (test code = 2235) 12 RATIO SODIUM (test code = 2231) 135 MEQ/L POTASSIUM (test code = 2228) 5.0 MEQ/L CHLORIDE (test code = 2215) 100 MEQ/L CARBON DIOXIDE (test code = 2206) 24 MEQ/L CALCIUM (test code = 2209) 9.4 MG/DL PROTEIN, TOTAL (test code = 2229) 6.5 G/DL ALBUMIN (test code = 2201) 4.5 G/DL CALC GLOBULIN (test code = 2240) 2.0 G/DL CALC A/G RATIO (test code = 2234) 2.3 RATIO BILIRUBIN, TOTAL (test code = 2207) 0.5 MG/DL ALKALINE PHOSPHATASE (test code = 2204) 72 U/L AST (test code = 2218) 11 U/L ALT (test code = 2219) 16 U/L Kvng LawsonPSA, [id number] 00:00:00* Test Item Value Reference Range Interpretation Comme terrence PSA, TOTAL (test code = 2606) 0.48 NG/ML Kvng LawsonHEMOGLOBIN [id number] 00:00:00* Test Item Value Reference Range Interpretation Comme terrence HEMOGLOBIN A1c (test code = 73092) 8.9 % Kvng LawsonLIPID [id number] 00:00:00* Test Item Value Reference Range Interpretation Comme nts CHOLESTEROL (test code = 2210) 123 MG/DL TRIGLYCERIDES (test code = 2232) 103 MG/DL HDL CHOLESTEROL (test code = 2220) 33 MG/DL CALC LDL CHOL (test code = 2237) 71 MG/DL RISK RATIO LDL/HDL (test cod e = 2238) 2.15 RATIO Kvng LawsonCOMPREHENSIVE METABOLIC [id number] 00:00:00* Test Item Value Reference Range Interpretation Comme nts GLUCOSE (test code = 2217) 179 MG/DL BUN (test code = 2208) 10 MG/DL CREATININE (test code = 2214) 0.81 MG/DL eGFR AMER. (test cod e = 42346) 111 ML/MIN/1.73 eGFR NON- AMER. (test code = 55281) 96 ML/MIN/1.73 CALC BUN/CREAT (test code = 2235) 12 RATIO SODIUM (test code = 2231) 135 MEQ/L POTASSIUM (test code = 2228) 5.0 MEQ/L CHLORIDE (test code = 2215) 100 MEQ/L CARBON DIOXIDE (test code = 2206) 24 MEQ/L CALCIUM (test code = 2209) 9.4 MG/DL PROTEIN, TOTAL (test code = 2229) 6.5 G/DL ALBUMIN (test code = 2201) 4.5 G/DL CALC GLOBULIN (test code = 2240) 2.0 G/DL CALC A/G RATIO (test code = 2234) 2.3 RATIO BILIRUBIN, TOTAL (test code = 2207) 0.5 MG/DL ALKALINE PHOSPHATASE (test code = 2204) 72 U/L AST (test code = 2218) 11 U/L ALT (test code = 2219) 16 U/L Kvng LawsonPSA, [id number] 00:00:00* Test Item Value Reference Range Interpretation Comme terrence PSA, TOTAL (test code = 2606) 0.48 NG/ML Kvng LawsonHEMOGLOBIN [id number] 00:00:00* Test Item Value Reference Range Interpretation Comme terrence HEMOGLOBIN A1c (test code = 67104) 8.9 % Kvng LawsonLIPID [id number] 00:00:00* Test Item Value Reference Range Interpretation Comme nts CHOLESTEROL (test code = 2210) 123 MG/DL TRIGLYCERIDES (test code = 2232) 103 MG/DL HDL CHOLESTEROL (test code = 2220) 33 MG/DL CALC LDL CHOL (test code = 2237) 71 MG/DL RISK RATIO LDL/HDL (test cod e = 2238) 2.15 RATIO Kvng LawsonCOMPREHENSIVE METABOLIC [id number] 00:00:00* Test Item Value Reference Range Interpretation Comme nts GLUCOSE (test code = 2217) 179 MG/DL BUN (test code = 2208) 10 MG/DL CREATININE (test code = 2214) 0.81 MG/DL eGFR AMER. (test cod e = 30369) 111 ML/MIN/1.73 eGFR NON- AMER. (test code = 37605) 96 ML/MIN/1.73 CALC BUN/CREAT (test code = 2235) 12 RATIO SODIUM (test code = 2231) 135 MEQ/L POTASSIUM (test code = 2228) 5.0 MEQ/L CHLORIDE (test code = 2215) 100 MEQ/L CARBON DIOXIDE (test code = 2206) 24 MEQ/L CALCIUM (test code = 2209) 9.4 MG/DL PROTEIN, TOTAL (test code = 2229) 6.5 G/DL ALBUMIN (test code = 2201) 4.5 G/DL CALC GLOBULIN (test code = 2240) 2.0 G/DL CALC A/G RATIO (test code = 2234) 2.3 RATIO BILIRUBIN, TOTAL (test code = 2207) 0.5 MG/DL ALKALINE PHOSPHATASE (test code = 2204) 72 U/L AST (test code = 2218) 11 U/L ALT (test code = 2219) 16 U/L Kvng LawsonPSA, [id number] 00:00:00* Test Item Value Reference Range Interpretation Comme terrence PSA, TOTAL (test code = 2606) 0.48 NG/ML Kvng LawsonHEMOGLOBIN [id number] 00:00:00* Test Item Value Reference Range Interpretation Comme nts HEMOGLOBIN A1c (test code = 72534) 8.9 % Kvng Pozo LzmiaoAJRZ-VlT-2 (COVID-19) by RT-PCR (HIGH RISK)2020-04-19 00:00:00* Test Item Value Reference Range Interpretation Comme nts SARS-CoV-2 INTERPRETATION (t est code = 72066) NEGATIVE SOURCE (test code = 49679) NOT SPECIFIED SARS-CoV-2 (COVID-19) by RT-PCR (HIGH RISK)2020-04-19 00:00:00* Test Item Value Reference Range Interpretation Comme nts SARS-CoV-2 INTERPRETATION (t est code = 55083) NEGATIVE SOURCE (test code = 55170) NOT SPECIFIED SARS-CoV-2 (COVID-19) by RT-PCR (HIGH RISK)2020-04-19 00:00:00* Test Item Value Reference Range Interpretation Comme nts SARS-CoV-2 INTERPRETATION (t est code = 20460) NEGATIVE SOURCE (test code = 86051) NOT SPECIFIED SARS-CoV-2 (COVID-19) by RT-PCR (HIGH RISK)2020-04-19 00:00:00* Test Item Value Reference Range Interpretation Comme nts SARS-CoV-2 INTERPRETATION (t est code = 46514) NEGATIVE SOURCE (test code = 32170) NOT SPECIFIED Kvng Pozo VscwetWSEY-VdT-8 (COVID-19) by RT-PCR (HIGH RISK)2020-04-19 00:00:00* Test Item Value Reference Range Interpretation Comme nts SARS-CoV-2 INTERPRETATION (t est code = 07806) NEGATIVE SOURCE (test code = 87157) NOT SPECIFIED Kvng Pozo AydvlzHWZN-AgG-7 (COVID-19) by RT-PCR (HIGH RISK)2020-04-19 00:00:00* Test Item Value Reference Range Interpretation Comme nts SARS-CoV-2 INTERPRETATION (t est code = 68751) NEGATIVE SOURCE (test code = 19414) NOT SPECIFIED Kvng Pozo AkzigzHTCZ-OqU-6 (COVID-19) by RT-PCR (HIGH RISK)2020-04-13 00:00:00* Test Item Value Reference Range Interpretation Comme nts SARS-CoV-2 INTERPRETATION (test code = 96582) NEGATIVE SOURCE (test code = 76692) NASOPHARYNGEAL SARS-CoV-2 (COVID-19) by RT-PCR (HIGH RISK)2020-04-13 00:00:00* Test Item Value Reference Range Interpretation Comme nts SARS-CoV-2 INTERPRETATION (test code = 46659) NEGATIVE SOURCE (test code = 29393) NASOPHARYNGEAL SARS-CoV-2 (COVID-19) by RT-PCR (HIGH RISK)2020-04-13 00:00:00* Test Item Value Reference Range Interpretation Comme nts SARS-CoV-2 INTERPRETATION (test code = 29675) NEGATIVE SOURCE (test code = 08506) NASOPHARYNGEAL SARS-CoV-2 (COVID-19) by RT-PCR (HIGH RISK)2020-04-13 00:00:00* Test Item Value Reference Range Interpretation Comme nts SARS-CoV-2 INTERPRETATION (test code = 66135) NEGATIVE SOURCE (test code = 96269) NASOPHARYNGEAL Kvng F HlbengMAKI-TbQ-6 (COVID-19) by RT-PCR (HIGH RISK)2020-04-13 00:00:00* Test Item Value Reference Range Interpretation Comme nts SARS-CoV-2 INTERPRETATION (test code = 22797) NEGATIVE SOURCE (test code = 67532) NASOPHARYNGEAL Kvng F VtmkslUOLW-RpH-4 (COVID-19) by RT-PCR (HIGH RISK)2020-04-13 00:00:00* Test Item Value Reference Range Interpretation Comme nts SARS-CoV-2 INTERPRETATION (test code = 95482) NEGATIVE SOURCE (test code = 91807) NASOPHARYNGEAL Kvng F AustinVITAMIN [id number] 00:00:00* Test Item Value Reference Range Interpretation Comme nts VITAMIN B12 (test code = 2132-9) 1210 pg/mL Kvng Pozo AustinCBC (INCLUDES DIFF/PLT)2019-10-31 00:00:00* Test Item Value Reference Range Interpretation Comme nts WHITE BLOOD CELL COUNT (test code = 6690-2) 7.6 Thousand/uL RED BLOOD CELL COUNT (test code = 789-8) 4.83 Million/uL HEMOGLOBIN (test code = 718-7) 14.8 g/dL HEMATOCRIT (test code = 4544-3) 44.0 % MCV (test code = 787-2) 91.1 fL MCH (test code = 785-6) 30.6 pg MCHC (test code = 786-4) 33.6 g/dL RDW (test code = 788-0) 12.7 % PLATELET COUNT (test code = 777-3) 375 Thousand/uL MPV (test code = 776-5) 9.2 fL ABSOLUTE NEUTROPHILS (test code = 751-8) 4970 cells/uL ABSOLUTE BAND NEUTROPHILS (test code = 91712-2) DNR cells/uL ABSOLUTE METAMYELOCYTES (portia t code = 92116-9) DNR cells/uL ABSOLUTE MYELOCYTES (test code = 21507-1) DNR cells/uL ABSOLUTE PROMYELOCYTES (test code = 79937-2) DNR cells/uL ABSOLUTE LYMPHOCYTES (test code = 731-0) 1733 cells/uL ABSOLUTE MONOCYTES (test cod e = 742-7) 532 cells/uL ABSOLUTE EOSINOPHILS (test code = 711-2) 312 cells/uL ABSOLUTE BASOPHILS (test cod e = 704-7) 53 cells/uL ABSOLUTE BLASTS (test code = 57054-9) DNR cells/uL ABSOLUTE NUCLEATED RBC (test code = 07087-2) DNR cells/uL NEUTROPHILS (test code = 770-8) 65.4 % BAND NEUTROPHILS (test code = 764-1) DNR % METAMYELOCYTES (test code = 740-1) DNR % MYELOCYTES (test code = 749-2) DNR % PROMYELOCYTES (test code = 783-1) DNR % LYMPHOCYTES (test code = 736-9) 22.8 % REACTIVE LYMPHOCYTES (test code = 31984-2) DNR % MONOCYTES (test code = 5905-5) 7.0 % EOSINOPHILS (test code = 713-8) 4.1 % BASOPHILS (test code = 706-2) 0.7 % BLASTS (test code = 709-6) DNR % NUCLEATED RBC (test code = 59675-2) DNR /100WBC COMMENT(S) (test code = 8251-1) DNR VITAMIN [id number] 00:00:00* Test Item Value Reference Range Interpretation Comme nts VITAMIN B12 (test code = 2132-9) 1210 pg/mL CBC (INCLUDES DIFF/PLT)2019-10-31 00:00:00* Test Item Value Reference Range Interpretation Comme nts WHITE BLOOD CELL COUNT (test code = 6690-2) 7.6 Thousand/uL RED BLOOD CELL COUNT (test code = 789-8) 4.83 Million/uL HEMOGLOBIN (test code = 718-7) 14.8 g/dL HEMATOCRIT (test code = 4544-3) 44.0 % MCV (test code = 787-2) 91.1 fL MCH (test code = 785-6) 30.6 pg MCHC (test code = 786-4) 33.6 g/dL RDW (test code = 788-0) 12.7 % PLATELET COUNT (test code = 777-3) 375 Thousand/uL MPV (test code = 776-5) 9.2 fL ABSOLUTE NEUTROPHILS (test code = 751-8) 4970 cells/uL ABSOLUTE BAND NEUTROPHILS (test code = 11835-0) DNR cells/uL ABSOLUTE METAMYELOCYTES (portia t code = 81832-4) DNR cells/uL ABSOLUTE MYELOCYTES (test code = 43775-3) DNR cells/uL ABSOLUTE PROMYELOCYTES (test code = 39063-9) DNR cells/uL ABSOLUTE LYMPHOCYTES (test code = 731-0) 1733 cells/uL ABSOLUTE MONOCYTES (test cod e = 742-7) 532 cells/uL ABSOLUTE EOSINOPHILS (test code = 711-2) 312 cells/uL ABSOLUTE BASOPHILS (test cod e = 704-7) 53 cells/uL ABSOLUTE BLASTS (test code = 35952-4) DNR cells/uL ABSOLUTE NUCLEATED RBC (test code = 43131-4) DNR cells/uL NEUTROPHILS (test code = 770-8) 65.4 % BAND NEUTROPHILS (test code = 764-1) DNR % METAMYELOCYTES (test code = 740-1) DNR % MYELOCYTES (test code = 749-2) DNR % PROMYELOCYTES (test code = 783-1) DNR % LYMPHOCYTES (test code = 736-9) 22.8 % REACTIVE LYMPHOCYTES (test code = 06412-4) DNR % MONOCYTES (test code = 5905-5) 7.0 % EOSINOPHILS (test code = 713-8) 4.1 % BASOPHILS (test code = 706-2) 0.7 % BLASTS (test code = 709-6) DNR % NUCLEATED RBC (test code = 23350-5) DNR /100WBC COMMENT(S) (test code = 8251-1) DNR VITAMIN [id number] 00:00:00* Test Item Value Reference Range Interpretation Comme nts VITAMIN B12 (test code = 2132-9) 1210 pg/mL CBC (INCLUDES DIFF/PLT)2019-10-31 00:00:00* Test Item Value Reference Range Interpretation Comme nts WHITE BLOOD CELL COUNT (test code = 6690-2) 7.6 Thousand/uL RED BLOOD CELL COUNT (test code = 789-8) 4.83 Million/uL HEMOGLOBIN (test code = 718-7) 14.8 g/dL HEMATOCRIT (test code = 4544-3) 44.0 % MCV (test code = 787-2) 91.1 fL MCH (test code = 785-6) 30.6 pg MCHC (test code = 786-4) 33.6 g/dL RDW (test code = 788-0) 12.7 % PLATELET COUNT (test code = 777-3) 375 Thousand/uL MPV (test code = 776-5) 9.2 fL ABSOLUTE NEUTROPHILS (test code = 751-8) 4970 cells/uL ABSOLUTE BAND NEUTROPHILS (test code = 84581-1) DNR cells/uL ABSOLUTE METAMYELOCYTES (portia t code = 94324-1) DNR cells/uL ABSOLUTE MYELOCYTES (test code = 09929-6) DNR cells/uL ABSOLUTE PROMYELOCYTES (test code = 35213-2) DNR cells/uL ABSOLUTE LYMPHOCYTES (test code = 731-0) 1733 cells/uL ABSOLUTE MONOCYTES (test cod e = 742-7) 532 cells/uL ABSOLUTE EOSINOPHILS (test code = 711-2) 312 cells/uL ABSOLUTE BASOPHILS (test cod e = 704-7) 53 cells/uL ABSOLUTE BLASTS (test code = 23472-7) DNR cells/uL ABSOLUTE NUCLEATED RBC (test code = 88422-0) DNR cells/uL NEUTROPHILS (test code = 770-8) 65.4 % BAND NEUTROPHILS (test code = 764-1) DNR % METAMYELOCYTES (test code = 740-1) DNR % MYELOCYTES (test code = 749-2) DNR % PROMYELOCYTES (test code = 783-1) DNR % LYMPHOCYTES (test code = 736-9) 22.8 % REACTIVE LYMPHOCYTES (test code = 82227-3) DNR % MONOCYTES (test code = 5905-5) 7.0 % EOSINOPHILS (test code = 713-8) 4.1 % BASOPHILS (test code = 706-2) 0.7 % BLASTS (test code = 709-6) DNR % NUCLEATED RBC (test code = 34870-0) DNR /100WBC COMMENT(S) (test code = 8251-1) DNR VITAMIN [id number] 00:00:00* Test Item Value Reference Range Interpretation Comme nts VITAMIN B12 (test code = 2132-9) 1210 pg/mL CBC (INCLUDES DIFF/PLT)2019-10-31 00:00:00* Test Item Value Reference Range Interpretation Comme nts WHITE BLOOD CELL COUNT (test code = 6690-2) 7.6 Thousand/uL RED BLOOD CELL COUNT (test code = 789-8) 4.83 Million/uL HEMOGLOBIN (test code = 718-7) 14.8 g/dL HEMATOCRIT (test code = 4544-3) 44.0 % MCV (test code = 787-2) 91.1 fL MCH (test code = 785-6) 30.6 pg MCHC (test code = 786-4) 33.6 g/dL RDW (test code = 788-0) 12.7 % PLATELET COUNT (test code = 777-3) 375 Thousand/uL MPV (test code = 776-5) 9.2 fL ABSOLUTE NEUTROPHILS (test code = 751-8) 4970 cells/uL ABSOLUTE BAND NEUTROPHILS (test code = 52839-2) DNR cells/uL ABSOLUTE METAMYELOCYTES (portia t code = 92324-9) DNR cells/uL ABSOLUTE MYELOCYTES (test code = 14855-6) DNR cells/uL ABSOLUTE PROMYELOCYTES (test code = 43097-1) DNR cells/uL ABSOLUTE LYMPHOCYTES (test code = 731-0) 1733 cells/uL ABSOLUTE MONOCYTES (test cod e = 742-7) 532 cells/uL ABSOLUTE EOSINOPHILS (test code = 711-2) 312 cells/uL ABSOLUTE BASOPHILS (test cod e = 704-7) 53 cells/uL ABSOLUTE BLASTS (test code = 12971-8) DNR cells/uL ABSOLUTE NUCLEATED RBC (test code = 66992-0) DNR cells/uL NEUTROPHILS (test code = 770-8) 65.4 % BAND NEUTROPHILS (test code = 764-1) DNR % METAMYELOCYTES (test code = 740-1) DNR % MYELOCYTES (test code = 749-2) DNR % PROMYELOCYTES (test code = 783-1) DNR % LYMPHOCYTES (test code = 736-9) 22.8 % REACTIVE LYMPHOCYTES (test code = 26986-5) DNR % MONOCYTES (test code = 5905-5) 7.0 % EOSINOPHILS (test code = 713-8) 4.1 % BASOPHILS (test code = 706-2) 0.7 % BLASTS (test code = 709-6) DNR % NUCLEATED RBC (test code = 53998-5) DNR /100WBC COMMENT(S) (test code = 8251-1) DNR Kvng LawsonVITAMIN [id number] 00:00:00* Test Item Value Reference Range Interpretation Comme nts VITAMIN B12 (test code = 2132-9) 1210 pg/mL Kvng LawsonCBC (INCLUDES DIFF/PLT)2019-10-31 00:00:00* Test Item Value Reference Range Interpretation Comme nts WHITE BLOOD CELL COUNT (test code = 6690-2) 7.6 Thousand/uL RED BLOOD CELL COUNT (test code = 789-8) 4.83 Million/uL HEMOGLOBIN (test code = 718-7) 14.8 g/dL HEMATOCRIT (test code = 4544-3) 44.0 % MCV (test code = 787-2) 91.1 fL MCH (test code = 785-6) 30.6 pg MCHC (test code = 786-4) 33.6 g/dL RDW (test code = 788-0) 12.7 % PLATELET COUNT (test code = 777-3) 375 Thousand/uL MPV (test code = 776-5) 9.2 fL ABSOLUTE NEUTROPHILS (test code = 751-8) 4970 cells/uL ABSOLUTE BAND NEUTROPHILS (test code = 39219-6) DNR cells/uL ABSOLUTE METAMYELOCYTES (portia t code = 32352-6) DNR cells/uL ABSOLUTE MYELOCYTES (test code = 37694-6) DNR cells/uL ABSOLUTE PROMYELOCYTES (test code = 50489-9) DNR cells/uL ABSOLUTE LYMPHOCYTES (test code = 731-0) 1733 cells/uL ABSOLUTE MONOCYTES (test cod e = 742-7) 532 cells/uL ABSOLUTE EOSINOPHILS (test code = 711-2) 312 cells/uL ABSOLUTE BASOPHILS (test cod e = 704-7) 53 cells/uL ABSOLUTE BLASTS (test code = 93204-8) DNR cells/uL ABSOLUTE NUCLEATED RBC (test code = 04599-4) DNR cells/uL NEUTROPHILS (test code = 770-8) 65.4 % BAND NEUTROPHILS (test code = 764-1) DNR % METAMYELOCYTES (test code = 740-1) DNR % MYELOCYTES (test code = 749-2) DNR % PROMYELOCYTES (test code = 783-1) DNR % LYMPHOCYTES (test code = 736-9) 22.8 % REACTIVE LYMPHOCYTES (test code = 81907-4) DNR % MONOCYTES (test code = 5905-5) 7.0 % EOSINOPHILS (test code = 713-8) 4.1 % BASOPHILS (test code = 706-2) 0.7 % BLASTS (test code = 709-6) DNR % NUCLEATED RBC (test code = 04567-8) DNR /100WBC COMMENT(S) (test code = 8251-1) DNR Kvng Pozo RennyVITAMIN [id number] 00:00:00* Test Item Value Reference Range Interpretation Comme nts VITAMIN B12 (test code = 2132-9) 1210 pg/mL Kvng Pozo RennyCBC (INCLUDES DIFF/PLT)2019-10-31 00:00:00* Test Item Value Reference Range Interpretation Comme nts WHITE BLOOD CELL COUNT (test code = 6690-2) 7.6 Thousand/uL RED BLOOD CELL COUNT (test code = 789-8) 4.83 Million/uL HEMOGLOBIN (test code = 718-7) 14.8 g/dL HEMATOCRIT (test code = 4544-3) 44.0 % MCV (test code = 787-2) 91.1 fL MCH (test code = 785-6) 30.6 pg MCHC (test code = 786-4) 33.6 g/dL RDW (test code = 788-0) 12.7 % PLATELET COUNT (test code = 777-3) 375 Thousand/uL MPV (test code = 776-5) 9.2 fL ABSOLUTE NEUTROPHILS (test code = 751-8) 4970 cells/uL ABSOLUTE BAND NEUTROPHILS (test code = 35519-3) DNR cells/uL ABSOLUTE METAMYELOCYTES (portia t code = 11533-1) DNR cells/uL ABSOLUTE MYELOCYTES (test code = 45252-0) DNR cells/uL ABSOLUTE PROMYELOCYTES (test code = 37728-8) DNR cells/uL ABSOLUTE LYMPHOCYTES (test code = 731-0) 1733 cells/uL ABSOLUTE MONOCYTES (test cod e = 742-7) 532 cells/uL ABSOLUTE EOSINOPHILS (test code = 711-2) 312 cells/uL ABSOLUTE BASOPHILS (test cod e = 704-7) 53 cells/uL ABSOLUTE BLASTS (test code = 47070-6) DNR cells/uL ABSOLUTE NUCLEATED RBC (test code = 60614-7) DNR cells/uL NEUTROPHILS (test code = 770-8) 65.4 % BAND NEUTROPHILS (test code = 764-1) DNR % METAMYELOCYTES (test code = 740-1) DNR % MYELOCYTES (test code = 749-2) DNR % PROMYELOCYTES (test code = 783-1) DNR % LYMPHOCYTES (test code = 736-9) 22.8 % REACTIVE LYMPHOCYTES (test code = 30314-1) DNR % MONOCYTES (test code = 5905-5) 7.0 % EOSINOPHILS (test code = 713-8) 4.1 % BASOPHILS (test code = 706-2) 0.7 % BLASTS (test code = 709-6) DNR % NUCLEATED RBC (test code = 57801-5) DNR /100WBC COMMENT(S) (test code = 8251-1) DNR Kvng LawsonLIPID PANEL (REFL)2019-09-26 00:00:00* Test Item Value Reference Range Interpretation Comme nts CHOLESTEROL, TOTAL (test cod e = 2093-3) 141 mg/dL HDL CHOLESTEROL (test code = 2085-9) 33 mg/dL TRIGLYCERIDES (test code = 2571-8) 193 mg/dL LDL-CHOLESTEROL (test code = 84502-6) 79 mg/dL(calc) CHOL/HDLC RATIO (test code = 9830-1) 4.3 (calc) NON HDL CHOLESTEROL (test code = 02535-8) 108 mg/dL(calc) COMPREHENSIVE METABOLIC [id number] 00:00:00* Test Item Value Reference Range Interpretation Comme nts GLUCOSE (test code = 2345-7) 201 mg/dL UREA NITROGEN (BUN) (test code = 3094-0) 14 mg/dL CREATININE (test code = 2160-0) 0.83 mg/dL eGFR NON-AFR. BULGARIAN (test code = 56811-0) 96 mL/min/1.73m2 eGFR (test code = 37049-7) 111 mL/min/1.73m2 BUN/CREATININE RATIO (test code = 3097-3) NOT APPLICABLE (calc) SODIUM (test code = 2951-2) 130 mmol/L POTASSIUM (test code = 2823-3) 5.0 mmol/L CHLORIDE (test code = 2075-0) 96 mmol/L CARBON DIOXIDE (test code = 2027-9) 26 mmol/L CALCIUM (test code = 31451-7) 10.1 mg/dL PROTEIN, TOTAL (test code = 2885-2) 7.0 g/dL ALBUMIN (test code = 1751-7) 4.9 g/dL GLOBULIN (test code = 57638-3) 2.1 g/dL(calc) ALBUMIN/GLOBULIN RATIO (test code = 1759-0) 2.3 (calc) BILIRUBIN, TOTAL (test code = 1975-2) 0.4 mg/dL ALKALINE PHOSPHATASE (test code = 6768-6) 83 U/L AST (test code = 1920-8) 13 U/L ALT (test code = 1742-6) 21 U/L HEMOGLOBIN [id number] 00:00:00* Test Item Value Reference Range Interpretation Comme nts HEMOGLOBIN A1c (test code = 4548-4) 7.5 %oftotalHgb MICROALBUMIN, RANDOM URINE (W/CREATININE)2019-09-26 00:00:00* Test Item Value Reference Range Interpretation Comme nts CREATININE, RANDOM URINE (te st code = 2161-8) 61 mg/dL ALBUMIN, URINE (test code = 37387-5) 0.4 mg/dL ALBUMIN/CREATININE RATIO, RANDOM URINE (test code = 9318-7) 7 mcg/mgcreat LIPID PANEL (REFL)2019-09-26 00:00:00* Test Item Value Reference Range Interpretation Comme nts CHOLESTEROL, TOTAL (test cod e = 2093-3) 141 mg/dL HDL CHOLESTEROL (test code = 2085-9) 33 mg/dL TRIGLYCERIDES (test code = 2571-8) 193 mg/dL LDL-CHOLESTEROL (test code = 57203-8) 79 mg/dL(calc) CHOL/HDLC RATIO (test code = 9830-1) 4.3 (calc) NON HDL CHOLESTEROL (test code = 40769-6) 108 mg/dL(calc) COMPREHENSIVE METABOLIC [id number] 00:00:00* Test Item Value Reference Range Interpretation Comme nts GLUCOSE (test code = 2345-7) 201 mg/dL UREA NITROGEN (BUN) (test code = 3094-0) 14 mg/dL CREATININE (test code = 2160-0) 0.83 mg/dL eGFR NON-AFR. BULGARIAN (test code = 99880-7) 96 mL/min/1.73m2 eGFR (test code = 41947-3) 111 mL/min/1.73m2 BUN/CREATININE RATIO (test code = 3097-3) NOT APPLICABLE (calc) SODIUM (test code = 2951-2) 130 mmol/L POTASSIUM (test code = 2823-3) 5.0 mmol/L CHLORIDE (test code = 2075-0) 96 mmol/L CARBON DIOXIDE (test code = 2027-9) 26 mmol/L CALCIUM (test code = 36087-9) 10.1 mg/dL PROTEIN, TOTAL (test code = 2885-2) 7.0 g/dL ALBUMIN (test code = 1751-7) 4.9 g/dL GLOBULIN (test code = 29210-7) 2.1 g/dL(calc) ALBUMIN/GLOBULIN RATIO (test code = 1759-0) 2.3 (calc) BILIRUBIN, TOTAL (test code = 1975-2) 0.4 mg/dL ALKALINE PHOSPHATASE (test code = 6768-6) 83 U/L AST (test code = 1920-8) 13 U/L ALT (test code = 1742-6) 21 U/L HEMOGLOBIN [id number] 00:00:00* Test Item Value Reference Range Interpretation Comme nts HEMOGLOBIN A1c (test code = 4548-4) 7.5 %oftotalHgb MICROALBUMIN, RANDOM URINE (W/CREATININE)2019-09-26 00:00:00* Test Item Value Reference Range Interpretation Comme nts CREATININE, RANDOM URINE (te st code = 2161-8) 61 mg/dL ALBUMIN, URINE (test code = 78256-2) 0.4 mg/dL ALBUMIN/CREATININE RATIO, RANDOM URINE (test code = 9318-7) 7 mcg/mgcreat LIPID PANEL (REFL)2019-09-26 00:00:00* Test Item Value Reference Range Interpretation Comme nts CHOLESTEROL, TOTAL (test cod e = 3-3) 141 mg/dL HDL CHOLESTEROL (test code = 2085-9) 33 mg/dL TRIGLYCERIDES (test code = 2571-8) 193 mg/dL LDL-CHOLESTEROL (test code = 26110-9) 79 mg/dL(calc) CHOL/HDLC RATIO (test code = 9830-1) 4.3 (calc) NON HDL CHOLESTEROL (test code = 36091-1) 108 mg/dL(calc) COMPREHENSIVE METABOLIC [id number] 00:00:00* Test Item Value Reference Range Interpretation Comme nts GLUCOSE (test code = 2345-7) 201 mg/dL UREA NITROGEN (BUN) (test code = 3094-0) 14 mg/dL CREATININE (test code = 2160-0) 0.83 mg/dL eGFR NON-AFR. BULGARIAN (test code = 06163-8) 96 mL/min/1.73m2 eGFR (test code = 64966-1) 111 mL/min/1.73m2 BUN/CREATININE RATIO (test code = 3097-3) NOT APPLICABLE (calc) SODIUM (test code = 2951-2) 130 mmol/L POTASSIUM (test code = 2823-3) 5.0 mmol/L CHLORIDE (test code = 2075-0) 96 mmol/L CARBON DIOXIDE (test code = 2027-) 26 mmol/L CALCIUM (test code = 81931-0) 10.1 mg/dL PROTEIN, TOTAL (test code = 2885-2) 7.0 g/dL ALBUMIN (test code = 1751-7) 4.9 g/dL GLOBULIN (test code = 10970-8) 2.1 g/dL(calc) ALBUMIN/GLOBULIN RATIO (test code = 1759-0) 2.3 (calc) BILIRUBIN, TOTAL (test code = 1974-06) 0.4 mg/dL ALKALINE PHOSPHATASE (test code = 6768-6) 83 U/L AST (test code = 1920-8) 13 U/L ALT (test code = 1742-6) 21 U/L COMPREHENSIVE METABOLIC [id number] 00:00:00* Test Item Value Reference Range Interpretation Comme nts GLUCOSE (test code = 2345-7) 201 mg/dL UREA NITROGEN (BUN) (test code = 3094-0) 14 mg/dL CREATININE (test code = 2160-0) 0.83 mg/dL eGFR NON-AFR. BULGARIAN (test code = 99293-5) 96 mL/min/1.73m2 eGFR (test code = 77347-2) 111 mL/min/1.73m2 BUN/CREATININE RATIO (test code = 3097-3) NOT APPLICABLE (calc) SODIUM (test code = 2951-2) 130 mmol/L POTASSIUM (test code = 2823-3) 5.0 mmol/L CHLORIDE (test code = 2075-0) 96 mmol/L CARBON DIOXIDE (test code = 2028-01) 26 mmol/L CALCIUM (test code = 13246-9) 10.1 mg/dL PROTEIN, TOTAL (test code = 2885-2) 7.0 g/dL ALBUMIN (test code = 1751-7) 4.9 g/dL GLOBULIN (test code = 52884-2) 2.1 g/dL(calc) ALBUMIN/GLOBULIN RATIO (test code = 1759-0) 2.3 (calc) BILIRUBIN, TOTAL (test code = 1974-) 0.4 mg/dL ALKALINE PHOSPHATASE (test code = 6768-6) 83 U/L AST (test code = 1920-8) 13 U/L ALT (test code = 1742-6) 21 U/L Kv[facility] LawsonHEMOGLOBIN [id number] 00:00:00* Test Item Value Reference Range Interpretation Comme nts HEMOGLOBIN A1c (test code = 4548-4) 7.5 %oftotalHgb MICROALBUMIN, RANDOM URINE (W/CREATININE)2019-09-26 00:00:00* Test Item Value Reference Range Interpretation Comme nts CREATININE, RANDOM URINE (te st code = 2161-8) 61 mg/dL ALBUMIN, URINE (test code = 40023-6) 0.4 mg/dL ALBUMIN/CREATININE RATIO, RANDOM URINE (test code = 9318-7) 7 mcg/mgcreat HEMOGLOBIN [id number] 00:00:00* Test Item Value Reference Range Interpretation Comme nts HEMOGLOBIN A1c (test code = 4548-4) 7.5 %oftotalHgb Kvng LawsonMICROALBUMIN, RANDOM URINE (W/CREATININE)2019-09-26 00:00:00* Test Item Value Reference Range Interpretation Comme nts CREATININE, RANDOM URINE (te st code = 2161-8) 61 mg/dL ALBUMIN, URINE (test code = 21055-6) 0.4 mg/dL ALBUMIN/CREATININE RATIO, RANDOM URINE (test code = 9318-7) 7 mcg/mgcreat Kvng LawsonLIPID PANEL (REFL)2019-09-26 00:00:00* Test Item Value Reference Range Interpretation Comme nts CHOLESTEROL, TOTAL (test cod e = 2093-3) 141 mg/dL HDL CHOLESTEROL (test code = 2085-9) 33 mg/dL TRIGLYCERIDES (test code = 2571-8) 193 mg/dL LDL-CHOLESTEROL (test code = 20954-0) 79 mg/dL(calc) CHOL/HDLC RATIO (test code = 9830-1) 4.3 (calc) NON HDL CHOLESTEROL (test code = 01447-7) 108 mg/dL(calc) Kvng LawsonCOMPREHENSIVE METABOLIC [id number] 00:00:00* Test Item Value Reference Range Interpretation Comme nts GLUCOSE (test code = 2345-7) 201 mg/dL UREA NITROGEN (BUN) (test code = 3094-0) 14 mg/dL CREATININE (test code = 2160-0) 0.83 mg/dL eGFR NON-AFR. BULGARIAN (test code = 61767-0) 96 mL/min/1.73m2 eGFR (test code = 93339-3) 111 mL/min/1.73m2 BUN/CREATININE RATIO (test code = 3097-3) NOT APPLICABLE (calc) SODIUM (test code = 2951-2) 130 mmol/L POTASSIUM (test code = 2823-3) 5.0 mmol/L CHLORIDE (test code = 2075-0) 96 mmol/L CARBON DIOXIDE (test code = 2027-9) 26 mmol/L CALCIUM (test code = 64487-2) 10.1 mg/dL PROTEIN, TOTAL (test code = 2885-2) 7.0 g/dL ALBUMIN (test code = 1751-7) 4.9 g/dL GLOBULIN (test code = 73174-5) 2.1 g/dL(calc) ALBUMIN/GLOBULIN RATIO (test code = 1759-0) 2.3 (calc) BILIRUBIN, TOTAL (test code = 1975-2) 0.4 mg/dL ALKALINE PHOSPHATASE (test code = 6768-6) 83 U/L AST (test code = 1920-8) 13 U/L ALT (test code = 1742-6) 21 U/L Kvng LawsonHEMOGLOBIN [id number] 00:00:00* Test Item Value Reference Range Interpretation Comme [facility] HEMOGLOBIN A1c (test code = 4548-4) 7.5 %oftotalHgb Kvng LawsonMICROALBUMIN, RANDOM URINE (W/CREATININE)2019-09-26 00:00:00* Test Item Value Reference Range Interpretation Comme [facility] CREATININE, RANDOM URINE (te st code = 2161-8) 61 mg/dL ALBUMIN, URINE (test code = 99350-5) 0.4 mg/dL ALBUMIN/CREATININE RATIO, RANDOM URINE (test code = 9318-7) 7 mcg/mgcreat [facility] [place] AustinLIPID PANEL (REFL)2019-09-26 00:00:00* Test Item Value Reference Range Interpretation Comme nts CHOLESTEROL, TOTAL (test cod e = 3-3) 141 mg/dL HDL CHOLESTEROL (test code = 2085-9) 33 mg/dL TRIGLYCERIDES (test code = 2571-8) 193 mg/dL LDL-CHOLESTEROL (test code = 95070-1) 79 mg/dL(calc) CHOL/HDLC RATIO (test code = 9830-1) 4.3 (calc) NON HDL CHOLESTEROL (test code = 74017-5) 108 mg/dL(calc) Kvng LawsonCOMPREHENSIVE METABOLIC [id number] 00:00:00* Test Item Value Reference Range Interpretation Comme nts GLUCOSE (test code = 2345-7) 201 mg/dL UREA NITROGEN (BUN) (test code = 3094-0) 14 mg/dL CREATININE (test code = 2160-0) 0.83 mg/dL eGFR NON-AFR. BULGARIAN (test code = 25140-1) 96 mL/min/1.73m2 eGFR (test code = 78899-3) 111 mL/min/1.73m2 BUN/CREATININE RATIO (test code = 3097-3) NOT APPLICABLE (calc) SODIUM (test code = 2951-2) 130 mmol/L POTASSIUM (test code = 2823-3) 5.0 mmol/L CHLORIDE (test code = 2075-0) 96 mmol/L CARBON DIOXIDE (test code = 2027-9) 26 mmol/L CALCIUM (test code = 62272-9) 10.1 mg/dL PROTEIN, TOTAL (test code = 2885-2) 7.0 g/dL ALBUMIN (test code = 1751-7) 4.9 g/dL GLOBULIN (test code = 47827-1) 2.1 g/dL(calc) ALBUMIN/GLOBULIN RATIO (test code = 1759-0) 2.3 (calc) BILIRUBIN, TOTAL (test code = 1975-2) 0.4 mg/dL ALKALINE PHOSPHATASE (test code = 6768-6) 83 U/L AST (test code = 1920-8) 13 U/L ALT (test code = 1742-6) 21 U/L Kvng LawsonHEMOGLOBIN [id number] 00:00:00* Test Item Value Reference Range Interpretation Comme terrence HEMOGLOBIN A1c (test code = 4548-4) 7.5 %oftotalHgb Kvng LawsonMICROALBUMIN, RANDOM URINE (W/CREATININE)2019-09-26 00:00:00* Test Item Value Reference Range Interpretation Comme nts CREATININE, RANDOM URINE (te st code = 2161-8) 61 mg/dL ALBUMIN, URINE (test code = 67198-1) 0.4 mg/dL ALBUMIN/CREATININE RATIO, RANDOM URINE (test code = 9318-7) 7 mcg/mgcreat Kvng LawsonLIPID PANEL (REFL)2019-09-26 00:00:00* Test Item Value Reference Range Interpretation Comme nts CHOLESTEROL, TOTAL (test cod e = 2093-3) 141 mg/dL HDL CHOLESTEROL (test code = 2085-9) 33 mg/dL TRIGLYCERIDES (test code = 2571-8) 193 mg/dL LDL-CHOLESTEROL (test code = 32574-1) 79 mg/dL(calc) CHOL/HDLC RATIO (test code = 9830-1) 4.3 (calc) NON HDL CHOLESTEROL (test code = 36185-9) 108 mg/dL(calc) Kvng Lawson Notes Date/Time Note Provider Source Kvng Lawson [facility]2024-05-01 00:00:00 Kvng Lawson [facility]2024-04-17 00:00:00 Kvng Hart[facility]2023-09-16 09:29:[id number] [place] [address] PATIENT NAME: JOSEFINA BRADSHAW ADMIT DATE: 01/29/23 ACCOUNT NO: [id number] ROOM NO: AGE: 62 REPORT TYPE: CARDIAC CATHETERIZATION REPORT SEX: M ADMITTING PHYSICIAN: ATTENDING PHYSICIAN: Shelbie Ross MD PROCEDURE DATE: 01/29/2023 CARDIOVASCULAR PROCEDURE JUVENILE DETENTION OFFICER: Shelbie Ross MD ACCOUNTING AUDITOR: CERTIFIED DRIVER EXAMINER: Shelbie Ross MD INDICATION FOR THE PROCEDURE: Left foot ulceration, severe peripheral arterial disease. TITLE OF PROCEDURES: 1. Abdominal and bilateral selective iliofemoral angiograms. 2. First order angiogram of the right lower extremity. 3. Third order angiogram of the left lower extremity. 4. CSI orbital atherectomy METAL CLEANER and DCB of the left SFA. 5. METAL CLEANER and DCB of the left popliteal. 6. METAL CLEANER and stent of the left external iliac. 7. Sealing device. ESTIMATED BLOOD LOSS: Minimal. COMPLICATIONS: None. CONTRAST: 120 mL. ANESTHESIA: Conscious sedation with Versed and fentanyl. A 1% lidocaine for local anesthesia. FINAL DIAGNOSES: Severe peripheral arterial disease, also severe left renal artery stenosis. The patient is now status post METAL CLEANER and stenting of the left common iliac atherectomy and DCB of the left SFA and DCB of the left popliteal. The recommendation is medical therapy for the rest of the disease. Consider infrapopliteal intervention if needed and consider left renal intervention if needed. PROCEDURE IN DETAIL: After informed consent, the patient was brought to the cardiac catheterization lab in a stable fasting nonsedated state. He was prepped and draped in the usual sterile fashion. After conscious sedation, 1% lidocaine was administered to the right common femoral artery area for local PATIENT NAME: JOSEFINA BRADSHAW anesthesia. A 6-Georgian sheath was placed in the right common femoral artery using standard techniques and fluoroscopy. After heparinization, selective angiogram of the right lower extremity showed 40% plaque of the right common iliac, 40% of the right external iliac, 25% plaque of the distal external iliac, 40% disease in the mid SFA, 3-vessel runoff distally with 2-vessel disease, good flow. Abdominal arteriogram showed 90% left renal artery stenosis and luminal irregularities on the right. The aorta was free of significant angiographic disease. There is an eccentric very tight lesion of the left external iliac 95%. The left external iliac is 40%. The SFA starts off with a 40%, then 40% and then goes to a 95% calcified, 90% calcified then it had a total occlusion of 100%. Reconstitutes right above the popliteal and then the popliteal itself had an 80% lesion. There are 2-vessel runoff distally, but with 80% disease of the [address] down to the foot. After full heparinization and loading Plavix and aspirin and adequate ACT, put an up and over sheath and placed it in the left common femoral artery. I used the Storq wire to cross the lesions with the assistance of a NaviCross InfoNowumo catheter. Then, I took selective pictures all the way down to the foot detailed above. Then, I went ahead and exchanged for the Viper wire and did a Diamondback atherectomy of the calcified area of the SFA before the occlusion. We then went ahead and put an IN.PACT balloon Medtronic DCB 5 x 150 and then distally I put a 4 x 80 and dilated also the popliteal, that resulted in good results with less than 20% residual and much better distal flow. There was a significant pressure gradient across the iliac lesion, which I stented at the end of the procedure with a Visi-Pro 8 mm x 27 and that resulted in 0% residual and good apposition of the stent struts. The right groin was sealed using Angio-Seal. There were no complications. The patient tolerated the procedure well. The patient will be treated medically for rest of his peripheral arterial disease for now and we will observe and consider intervention of the left renal artery. The right groin was sealed using Angio-Seal. The patient tolerated the procedure well, he was transferred to the holding area for observation to be discharged later on today on medical therapy and risk factor modification. Dictated By: Shelbie Ross MD Date Dictated: 01/29/2023 09:29:30 Date Transcribed: 01/29/2023 10:09:28 FRANK/CORRIE/ARTEMIO Receipt ID: [id number] Authenticated and Edited by Shelbie Ross MD On 02/02/23 7:02:09 AM at 0704 PATIENT NAME: JOSEFINA BRADSHAW 05:44:00 [id number] [address] PATIENT NAME: JOSEFINA BRADSHAW ADMIT DATE: 01/29/23 ACCOUNT NO: [id number] ROOM NO: AGE: 62 REPORT TYPE: eELECTROCARDIOGRAM SEX: M ADMITTING PHYSICIAN: ATTENDING PHYSICIAN: Shelbie Ross MD Order: [id number] Test Reason : CAD Test Date/Time Stamp: TueJan 29 2023 05:44:39 Blood Pressure : / mmHG Vent. Rate : 090 BPM Atrial Rate : 090 BPM P-R Int : 154 ms QRS Dur : 128 ms QT Int : 384 ms P-R-T Axes : 080 086 064 degrees QTc Int : 469 ms Normal sinus rhythm Right bundle branch block Abnormal ECG When compared with ECG of 23-JAN-2013 11:11, Right bundle branch block is now present Confirmed by SHELBIE ROSS ([id number]) on 01/29/2023 6:44:28 AM Referred By: Shelbie Ross Confirmed by:SHELBIE ROSS at 0644 PATIENT NAME: JOSEFINA BRADSHAW 07:09:00 [phone] [place] [address] PATIENT NAME: JOSEFINA BRADSHAW ADMIT DATE: ACCOUNT NO: [id number] ROOM NO: AGE: 62 REPORT TYPE: PREOP HP REPORT SEX: M ADMITTING PHYSICIAN: ATTENDING PHYSICIAN: Shelbie Ross MD Cardiology PATIENT NAME: JOSEFINA BRADSHAW ADMIT DATE:01/29/2023 ADMISSION DATE: 01/29/2023 09:00:00 CERTIFIED DRIVER EXAMINER: Shelbie Ross MD REASON FOR ADMISSION: Symptomatic peripheral arterial disease for cardiac catheterization and possible revascularization. HISTORY OF PRESENT ILLNESS: Josefina is a 62-year-old patient of mine who I have been following in my office since 2012. The patient has been seen on and off over the years. He came back complaining of worsening claudications, especially of the left lower extremity along with dyspnea and palpitations. He underwent a noninvasive workup. His lower arterial Doppler examination showed the right ankle brachial index to be 0.97 and the left showing 0.52 suggestive of severe iliofemoral disease. The patient is more symptomatic on the left lower extremity and has a left foot ulcer for which he sees Wound Care. He has had some nonspecific chest pains, which have resolved. His last echocardiogram showed mild to moderate mitral regurgitation in 2020. His last carotid Doppler showed less than 35% plaquing in 2020. Last nuclear stress test was negative for ischemia in 2012. The patient is not having any significant cardiac symptoms at this time. His main symptoms are related to the foot ulcer and peripheral arterial disease. He is here for abdominal and bilateral selective iliofemoral angiograms and revascularization of his left lower extremity. PAST MEDICAL HISTORY: Remarkable for the above, in addition to hypertension, hyperlipidemia, diabetes, osteoarthritis, depression and insomnia. PAST SURGICAL HISTORY: He has had ankle pins that were placed and then removed later years ago. ALLERGIES: NO KNOWN DRUG ALLERGIES. MEDICATIONS: Aspirin 81 mg daily, clopidogrel 75 mg daily, Bystolic 2.5 mg daily, gabapentin 600 mg three times a day, insulin, albuterol. SOCIAL HISTORY: The patient continues to smoke. He denies alcohol or street drug use. FAMILY HISTORY: Negative for premature atherosclerosis. REVIEW OF SYSTEMS: Remarkable for the above in addition to fatigue, insomnia, nonspecific rashes, easy bruisability. No acute GI or symptoms. No TIAs or PATIENT NAME: JOSEFINA BRADSHAW strokes. He has been mainly symptomatic of the left lower extremity with extreme claudications and rest pain and the ulcer that is getting treated. PHYSICAL EXAMINATION: GENERAL: Reveals a pleasant 62-year-old patient in no acute distress. VITAL SIGNS: Blood pressure 124/62, pulse 61 and regular, respiratory rate 16 and unlabored, temperature afebrile. HEENT: Head atraumatic, normocephalic. Eyes and ENT examination within normal for age. NECK: Supple. No jugular venous distention, bruits or lymphadenopathy. Normal upstroke. LUNGS: Clear and resonant. Decreased air entry at the bases noted. HEART: Regular rate and rhythm with 2/6 systolic ejection murmur at the left lower sternal border. No gallops. ABDOMEN: Soft, no tenderness, no organomegaly, no masses or bruits. EXTREMITIES: Remarkable for trace edema of the left lower extremity, left foot ulceration, 1+ distal pulses on the right, 0-1+ on the left. No edema, cyanosis or clubbing. NEUROLOGIC: Alert and oriented x3. Examination appears to be nonfocal. LABORATORY DATA: Pending. Noninvasive cardiovascular workup enclosed. IMPRESSION: This is a 62-year-old patient who continues to smoke, has diabetes, has significant peripheral arterial disease, symptomatic with also ulceration of the left foot. He is here for abdominal and bilateral selective angiograms and revascularization of his left lower extremity. The patient later on will need cardiac and carotid noninvasive workup. The patient is mainly here today for the above-mentioned peripheral procedure. The risks and benefits of the planned procedures were discussed in detail with the patient and available family members and he is willing to proceed. Rest as per orders. The patient was strongly advised to quit smoking and to continue antiplatelet therapy and risk factor modification. Of note here that the patient was on lipid lower therapy and he has been on and off it due to noncompliance and lost to follow up, he is supposed to be on atorvastatin, which was restarted at 40 mg daily. Dictated By: Shelbie Ross MD Date Dictated: 01/28/2023 07:09:47 Date Transcribed: 01/28/2023 07:51:07 FRANK/CONRADO Receipt ID: [id number] Authenticated and Edited by Shelbie Ross MD On 01/28/23 5:35:21 PM at 0537 PATIENT NAME: JOSEFINA BRADSHAW
[2024-02-12] MEDS ORDERED: METOPROLOL TAR 25 MG TAB ONE (10:33)
[2024-02-12 10:34] LABS: Absolute Eosinophils 0.1 K/uL (0-0.5); Absolute Lymphocytes (CBC) 1.2 K/uL (0.7-4.9); Absolute Monocytes 0.9 K/uL (0.1-1.3); Absolute Neutrophil 14.4 K/uL (1.8-8.0); Basophils % 0.2 % (0-1.3); Eosinophils % 0.5 % (0-4.4); Hemoglobin 13.2 g/dL (13.6-17.9); Lymphocytes % 7.3 % (15.3-44.8); MCH 29.3 pg (27.0-35.0); MCHC 33.8 g/dL (32.0-36.0); MCV 86.8 fL (80-100); MPV 5.8 fL (7.6-11.3); Monocytes % 5.2 % (3.3-12.3); Neutrophils % 86.8 % (41.7-73.7); Platelets 564 thou/uL (152-406); Red Cell Distribution Width 14.1 % (12.1-15.2)
[2024-02-12] MEDS ORDERED: ASPIRIN 81 MG CHEWABLE TABLET ONE (10:34)
[2024-02-12] MEDS ORDERED: MORPHINE 4 MG/ML SYR ONE (10:34)
[2024-02-12] MEDS ORDERED: METOPROLOL TARTRATE 5 MG/5 ML INJ IV ONE ×2 (10:34→10:57)
[2024-02-12 10:38] LABS: PT Prothrombin Time 12.9 SECONDS (9.4-12.5); Protime INR 1.16
--- NOTE | 2024-02-12 10:42 | RAD REPORT ---
EXAMINATION: ONE VIEW CHEST XR CLINICAL INDICATION: Male, 63 years old.COUGH TECHNIQUE: 1 View, AP supine, X-ray of the chest was performed. [id number]. COMPARISON: No prior exam. FINDINGS: Lungs and pleura: New focal airspace disease at the left lung base. No effusion. Heart and mediastinum: Normal heart size. Unremarkable mediastinal contours. Osseous structures: No acute abnormality. Tubes/lines: None Other: None. IMPRESSION: Irregular airspace disease at the left lung base concerning for pneumonia.
[2024-02-12 10:52] LABS: Albumin 2.5 g/dL (3.4-5.0); Albumin/Globulin Ratio 0.5 (1.1-1.8); Anion Gap 10.7 mEq/L (5.0-15.0); Bilirubin Direct 0.2 mg/dL (0-0.2); Bilirubin Indirect, Calculated 0.2 mg/dL (0.2-0.8); Bilirubin Total 0.4 mg/dL (0.2-1.0); Globulin 5.1 g/dL (2.3-3.5); Magnesium 1.6 mg/dL (1.6-2.4); Potassium 3.7 mEq/L (3.5-5.1); Protein, Total 7.6 g/dL (6.4-8.2)
[2024-02-12 10:54] LABS: SARS-CoV-2 Antigen CONTROL BLUE LINE VIS/BG OK; SARS-CoV-2 Antigen Rapid Res Negative (Negative)
[2024-02-12] MEDS ORDERED: NA CHLORIDE 0.9% 1,000 ML ONE (10:57)
[2024-02-12 11:17] LABS: Blood Morphology Comment NOT SEEN (NOT SEEN); Platelet Estimate INCR; Platelets Clumped NOTED; White Blood Cell Scan OK (OK)
[2024-02-12 11:20] LABS: Troponin High Sensitivity 126.4 pg/mL (<58.9)
--- NOTE | 2024-02-12 11:43 | RAD REPORT ---
EXAMINATION: CTA CHEST PE CLINICAL INDICATION: Male, 63 years old. CHEST PAIN TECHNIQUE: This examination was performed according to an angiographic protocol with 3D post-processi ng. This involves 3D reconstructions, MIPs, volume rendered images and/or shaded surface rendering. One or more of the following dose reduction techniques were used: Automated exposure control, adjustm ent of the mA and/or kV according to patient size, and/or iterative reconstruction. Unless otherwise specified, incidental findings do not require dedicated imaging follow-up. [id number]. COMPARISON: Same day chest radiograph FINDINGS: LOWER NECK: Visualized thyroid gland and soft tissues are normal. LUNGS AND AIRWAYS: Nodular and consolidative airspace disease present in the left lower lobe. Backgro und of emphysema. PLEURA: Calcified pleural plaque along the left upper lobe. MEDIASTINUM AND LYMPH NODES: On mediastinal and hilar lymph nodes likely reactive. THORACIC AORTA: Atherosclerosis. No aneurysm. PULMONARY ARTERIES: Good quality examination. Normal caliber. No evidence of pulmonary emboli to the subsegmental level. HEART: Normal heart size. No pericardial effusion. Coronary calcifications are present OSSEOUS STRUCTURES AND CHEST WALL: Intact. UPPER ABDOMEN: No significant abnormalities. IMPRESSION: No evidence of pulmonary emboli to the subsegmental level. Left lower lobe nodular and consolidative airspace disease consistent with pneumonia.
[2024-02-12] MEDS ORDERED: Levofloxacin 750mg IV 750 MG/150 ML BAG IV ONE (12:12)
--- NOTE | 2024-02-12 12:36 | EDPHYS ---
Physician Documentation [facility] Name: Jeramy Joseph Age: 63 yrs Sex: Male : 1960 Arrival Date: 02/12/2024 Time: 09:38 Bed 17 Private MD: ED Physician Jimmy Rush HPI: 02/11 10:00 This 63 yrs old Male presents to ER via Ambulatory with complaints of Something Bad In cp Lungs. 10:00 The patient or guardian reports chest pain that is located primarily in the anterior cp chest wall, left. 10:00 The patient or guardian reports cough, described as moderate, with productive sputum, cp that is purulent. Onset: The symptoms/episode began/occurred 1 month(s) ago. Severity of symptoms: in the emergency department the symptoms are unchanged, despite home interventions. Historical: - Allergies: :58 Unknown BP medication; ss - Home Meds: 14:58 Lantus U-100 Insulin 100 unit/mL Sub-Q solution 15 units 2 times per day [Active]; tl4 atorvastatin oral [Active]; gabapentin 800 mg oral tablet daily [Active]; - PMHx: 14:58 Diabetes mellitus; Hypercholesterolemia; tl4 - PSHx: 09:58 L foot; ss - Immunization history:: Client reports receiving the 2nd dose of the Covid vaccine. - Infectious Disease History:: Denies. - Social history:: Smoking status: Patient reports the use of cigarette tobacco products, smokes one pack cigarettes per day. ROS: 10:05 Constitutional: Negative for fever, cp 10:05 Eyes: Negative for injury, pain, redness, and discharge, cp 10:05 Cardiovascular: Positive for chest pain, Negative for edema, 10:05 Respiratory: Positive for cough, shortness of breath, 10:05 Abdomen/GI: Negative for abdominal pain, vomiting, diarrhea, constipation, 10:05 : Negative for urinary symptoms, 10:05 Neuro: Negative for altered mental status, dizziness, headache, weakness, 10:05 All other systems are negative, Exam: 10:10 Constitutional: The patient appears in no acute distress, alert, awake, cp non-diaphoretic, non-toxic, well developed, well nourished, uncomfortable, 10:10 Head/Face: Normocephalic, atraumatic. cp 10:10 Eyes: Periorbital structures: appear normal, Conjunctiva: normal, no exudate, no injection, Sclera: no appreciated abnormality, Lids and lashes: appear normal, bilaterally, 10:10 ENT: External ear(s): are unremarkable, Nose: is normal, Mouth: Lips: moist, Oral mucosa: moist, Posterior pharynx: Airway: no evidence of obstruction, patent, 10:10 Neck: ROM/movement: is normal, is supple, without pain, no range of motions limitations, 10:10 Chest/axilla: Inspection: normal, 10:10 Cardiovascular: Rate: tachycardic, Rhythm: regular, Edema: is not appreciated, JVD: is not appreciated, 10:10 Respiratory: the patient does not display signs of respiratory distress, Respirations: labored breathing, is not present, intercostal retractions, are absent, Breath sounds: bronchial sounds, that are mild, are heard diffusely, 10:10 Abdomen/GI: Inspection: abdomen appears normal, Palpation: abdomen is soft and non-tender, in all quadrants, 10:10 Back: pain, is absent, ROM is normal, 10:10 Neuro: Orientation: to person, place \T\ time. Mentation: is normal, Motor: moves all fours, strength is normal, Sensation: is normal, 10:15 ECG was reviewed by the Attending Physician. cp Vital Signs: 09:55 BP 183 / 107; Pulse 128; Resp 20; Temp 98.6(TE); Pulse Ox 100% on R/A; Height 5 ft. 8 ss in. ; Pain 10/10; 10:47 BP 171 / 100; Pulse 104; Resp 20; Pulse Ox 97% on R/A; ll1 11:03 BP 171 / 100; Pulse 99; Resp 19; Pulse Ox 98% on R/A; ll1 12:00 BP 169 / 96; Pulse 94; Resp 16; Pulse Ox 100% on R/A; tl4 12:30 BP 183 / 108; Pulse 92; Resp 20; Pulse Ox 99% on R/A; tl4 13:15 BP 176 / 103; Pulse 86; Resp 19; Pulse Ox 99% ; Weight 49 kg; Height 5 ft. 8 in. ; tl4 13:30 BP 169 / 86; Pulse 85; Resp 15; Pulse Ox 95% on R/A; tl4 13:45 BP 182 / 94; Pulse 84; Resp 18; Pulse Ox 98% on R/A; tl4 14:00 BP 150 / 98; Pulse 81; Resp 22; Pulse Ox 98% on R/A; tl4 14:15 BP 169 / 91; Pulse 80; Resp 25; Pulse Ox 98% on R/A; tl4 14:30 BP 147 / 87; Pulse 84; Resp 18; Pulse Ox 98% on R/A; tl4 14:45 BP 148 / 85; Pulse 84; Resp 16; Pulse Ox 97% on R/A; tl4 15:15 BP 138 / 83; Pulse 90; Resp 20; Pulse Ox 97% on R/A; tl4 15:45 BP 160 / 83; Pulse 89; Resp 18; Pulse Ox 98% on R/A; tl4 16:00 BP 150 / 88; Pulse 77; Resp 18; Temp 98.3(O); Pulse Ox 98% on R/A; tl4 13:15 Body Mass Index 16.43 (49.00 kg, 172.72 cm) tl4 09:55 Pain Scale: Adult ss MDM: 09:45 Patient medically screened. cp 11:00 Management of patient was discussed with the following: Light Oil Operator: DR Kellogg, cp cardiology, sees patient in ED and will consult. Reviewed EKG and reports negative for STEMI. Patient to be admitted to hospitalist services. 12:35 Data reviewed: vital signs, nurses notes, lab test result(s), EKG, radiologic studies, cp CT scan, plain films, and as a result, I will admit patient. 12:35 The patient was given aspirin in the Emergency Department. I considered the following discharge prescriptions or medication management in the emergency department Medications were administered in the Emergency Department. See MAR. Independent interpretation of the following test(s) in the Emergency Department EKG: See my EKG interpretation above. Counseling: I had a detailed discussion with the patient and/or guardian regarding the historical points, exam findings, and any diagnostic results supporting the discharge/admit diagnosis, lab results, radiology results, the need for further work-up and treatment in the hospital. 02/11 09:55 Order name: SARS RAPID; Complete Time: 11:11 cp 02/11 09:55 Order name: Influenza Screen (a \T\ B); Complete Time: 11:11 cp 02/11 09:55 Order name: Basic Metabolic Panel; Complete Time: 11:22 02/11 11:13 Interpretation: Normal except: NA 130; CL 95; GLUC 120; GFR 87. 02/11 09:55 Order name: CBC with Diff; Complete Time: 11:20 02/11 11:14 Interpretation: Normal except: WBC 16.50; HGB 13.2; HCT 39.0; PLT 564; MPV 5.8; TOM% cp 86.8; LYM% 7.3; NEUT A 14.4. 02/11 09:55 Order name: LFT's; Complete Time: 11:22 02/11 11:22 Interpretation: Normal except: ALK 167; ALB 2.5; GLOB 5.1; A/G 0.5. 02/11 09:55 Order name: Magnesium; Complete Time: 11:22 02/11 09:55 Order name: NT PRO-BNP; Complete Time: 11:22 02/11 11:14 Interpretation: Reviewed. 02/11 09:55 Order name: PT-INR; Complete Time: 10:44 02/11 10:44 Interpretation: Reviewed. 02/11 09:55 Order name: Troponin HS; Complete Time: 11:22 02/11 11:22 Interpretation: Reviewed. 02/11 09:55 Order name: Lactate w/ 2H reflex if indic.; Complete Time: 11:11 02/11 10:29 Order name: Urinalysis w/ reflexes 02/11 10:37 Order name: CBC Smear Scan; Complete Time: 11:20 [facility] 02/11 12:04 Order name: Blood Culture Adult (2) 02/11 14:03 Order name: Glucose, Ancillary Testing; Complete Time: 14:37 EDSD 02/11 14:24 Order name: Procalcitonin EDSD 02/11 14:24 Order name: Thyroid Stimulating Hormone EDSD 02/11 14:24 Order name: CBC with Automated Diff EDSD 02/11 14:24 Order name: CBC with Automated Diff EDSD 02/11 14:24 Order name: CBC with Automated Diff EDSD 02/11 14:24 Order name: CBC with Automated Diff EDMS 02/11 14:24 Order name: Comprehensive Metabolic Panel EDSD 02/11 14:24 Order name: Comprehensive Metabolic Panel EDSD 02/11 14:24 Order name: Comprehensive Metabolic Panel EDMS 02/11 14:24 Order name: Comprehensive Metabolic Panel EDSD 02/11 14:24 Order name: Lipid Profile EDSD 02/11 14:24 Order name: Lipid Profile EDMS 02/11 14:24 Order name: Magnesium EDMS 02/11 14:24 Order name: Magnesium EDMS 02/11 14:24 Order name: Phosphorus EDMS 02/11 14:24 Order name: Phosphorus EDMS 02/11 14:24 Order name: Protime (+INR) EDMS 02/11 14:24 Order name: Protime (+INR) EDMS 02/11 14:24 Order name: PTT, Activated Partial Thromb EDMS 02/11 14:24 Order name: PTT, Activated Partial Thromb EDMS 02/11 14:24 Order name: Troponin High Sensitivity EDSD 02/11 14:24 Order name: Troponin High Sensitivity EDSD 02/11 14:24 Order name: Troponin High Sensitivity EDSD 02/11 14:24 Order name: QUANTIFERON TB GOLD PLUS EDSD 02/11 15:07 Order name: Glucose, Ancillary Testing; Complete Time: 16:05 [facility] 02/11 16:15 Order name: Glucose, Ancillary Testing [facility] 02/11 09:55 Order name: XRAY Chest (1 view); Complete Time: 10:44 02/11 10:45 Interpretation: Report review. 02/11 10:46 Order name: CT Chest For PE Angio; Complete Time: 12:03 02/11 14:24 Order name: Echo with Doppler EDSD 02/11 14:25 Order name: RCOP INCENTIVE SPIROMETERY EDSD 02/11 09:55 Order name: EKG; Complete Time: 09:55 02/11 14:24 Order name: CONS Physician Consult EDSD 02/11 09:55 Order name: Cardiac monitoring; Complete Time: 10:07 02/11 09:55 Order name: EKG - Nurse/Tech; Complete Time: 10:07 02/11 09:55 Order name: IV Saline Lock; Complete Time: 10:07 02/11 09:55 Order name: Labs collected and sent; Complete Time: 10:07 02/11 09:55 Order name: O2 Per Protocol; Complete Time: 10:06 02/11 09:55 Order name: O2 Sat Monitoring; Complete Time: 10:06 cp EC:15 Rate is 119 beats/min. Rhythm is regular. MA interval is normal. QRS interval is cp prolonged at 126 msec. QT interval is normal. T waves are Inverted in leads aVR, V3. Interpreted by me. Reviewed by me. Administered Medications: 10:31 Not Given (Physician Discretion): [id number] mg IV at calculated rate once cp 10:45 Drug: morphine IVP or IV 4 mg IVP once over 4 mins {Note: pain 10/10, RASS 0.} Route: ll1 IVP; Infused Over: 4 mins; Site: right upper arm; 12:08 Follow up: Response: No adverse reaction; Pain is decreased tl4 10:46 Drug: Aspirin PO Chewable Tablet 324 mg PO once; 81 mg tablets x 4 Route: PO; ll1 12:08 Follow up: Response: No adverse reaction tl4 10:46 Drug: Metoprolol IVP 5 mg IVP once; Hold for SBP <100 or HR <60. {Note: BP 190/101, HR ll1 125.} Route: IVP; Site: right upper arm; 12:08 Follow up: Response: No adverse reaction; Blood pressure is unchanged tl4 10:47 Drug: Metoprolol PO 25 mg PO once Route: PO; ll1 12:08 Follow up: Response: No adverse reaction; Blood pressure is unchanged tl4 11:01 Drug: NS 0.9% IV 1000 ml IV at 999 ml/hr Per protocol {Note: 171/100, HR 103.} Route: ll1 IV; Rate: 999 ml/hr; Site: right upper arm; 12:08 Follow up: Response: No adverse reaction; IV Status: Completed infusion; IV Intake: tl4 1000ml 11:01 CANCELLED (Physician Discretion): metoprolol5 mg IVP every 5 minutes; Hold for SBP < cp 100 or HR < 60. x3 11:02 Drug: Metoprolol IVP 5 mg IVP once; Hold for SBP <100 or HR <60. Route: IVP; Site: [facility] right upper arm; 12:08 Follow up: Response: No adverse reaction; Blood pressure is unchanged tl4 12:08 Follow up: Response: No adverse reaction; Blood pressure is unchanged tl4 11:02 CANCELLED (just givenn): metoprolol5 mg IVP every 5 minutes; Hold for SBP < 100 or HR < ll1 60. x2 12:20 Drug: levofloxacin IVPB 750 mg 150 ml IVPB once over 90 mins Volume: 150 ml; Route: tl4 IVPB; Infused Over: 90 mins; Site: right antecubital; Delivery: Primary tubing; 14:39 Follow up: Response: No adverse reaction; IV Status: Completed infusion; IV Intake: tl4 150ml 13:27 CANCELLED (Physician Discretion): [id number] mg IVP once; For SBP > 140 mmHg. Hold cp if less than 120 mmHg. 13:52 Drug: Heparin (MS-Bolus with thrombolytic) - HEParin IVP 60 units/kg IVP once; Max 4000 tl4 units {Co-Signature: rakesh (Elaine Jamison RN).} Route: IVP; Site: left upper arm; 14:40 Follow up: Response: No adverse reaction tl4 13:59 Drug: Heparin (MS Drip) 12 units/kg/hr - ([place] [address] units, D5W IV 500 ml) IV at tl4 calculated rate Per protocol; Max initial rate 1000 units/hr {Co-Signature: rakesh (Elaine Jamison RN).} Route: IV; Rate: calculated rate; Site: left upper arm; 14:41 Follow up: Response: No adverse reaction tl4 14:02 Drug: d10 250 ml IV at calculated rate once; VO/ 100% RB Route: IV; Rate: calculated tl4 rate; Site: left upper arm; Delivery: Primary tubing; 14:44 Follow up: Response: No adverse reaction; Blood sugar is elevated; IV Status: Completed tl4 infusion; IV Intake: 250ml 14:30 Drug: niCARdipine IV 5 mg/hr IV at calculated rate See Administration Instructions; tl4 (Standard concentration 25 mg / 250 mL NS); Recommended max rate 15 mg/hr; Titrate 2.5 mg/hr as often as every 15 minutes to achieve goal (see titration policy); Goal parameter SBP less than 160 mmHg {Note: medication held due to pt BP was under goal BP.} Route: IV; Rate: calculated rate; Site: right upper arm; Delivery: Primary tubing; 16:08 Drug: D10 in Water IVP 250 ml IVP once Route: IVP; Site: left wrist; tl4 Disposition Summary: 02/12/24 12:35 Hospitalization Ordered Notes: Hospitalization Status: Inpatient Admission cp Provider: Linda Thomas cp Condition: Stable cp Problem: new cp Symptoms: have improved cp Bed/Room Type: Standard cp Location: Intensive Care Unit(02/12/24 14:41) eb Room Assignment: 1-(02/12/24 14:41) eb Diagnosis - Pneumonia, unspecified organism cp - Subsequent non-ST elevation (NSTEMI) myocardial infarction cp - Sepsis, unspecified organism cp Forms: - Medication Reconciliation Form cp - SBAR form cp - Leadership Thank You Letter cp Signatures: Dispatcher [employer] EDMS Carolynn Forbes RN RN ss Darshan Ma, ENGINEERING CLERK-C ENGINEERING CLERK-Cla1 Chas Shabazz PA PA cp Maylin Cash Lynsay RN RN ll1 Arvidn Hui RN RN tl4 Elaine Jamison RN ko1 Corrections: (The following items were deleted from the chart) 11:01 11:01 Metoprolol IVP 5 mg IVP every 5 minutes; Hold for SBP < 100 or HR < 60. x3 cp ordered. cp 11:02 11:02 Metoprolol IVP 5 mg IVP every 5 minutes; Hold for SBP < 100 or HR < 60. x2 ll1 ordered. cp 13:27 13:20 hydrALAZINE IVP 20 mg IVP once; For SBP > 140 mmHg. Hold if less than 120 mmHg. cp ordered. cp 14:41 12:35 Telemetry/MedSurg (Inpatient) cp eb 14:41 12:35 cp eb 14:41 14:41 eb eb
--- NOTE | 2024-02-12 12:36 | ER ---
Nurse's Notes [facility] Name: Jeramy Joseph Age: 63 yrs Sex: Male : 1960 Arrival Date: 02/12/2024 Time: 09:38 Bed 17 Private MD: Diagnosis: Pneumonia, unspecified organism;Subsequent non-ST elevation (NSTEMI) myocardial infarction;Sepsis, unspecified organism Presentation: 02/11 09:55 Chief complaint: Patient states: "I've had the flu for the past month, and just ss finished my antibiotic this morning, but I don't feel better." Pt c/o pain to L lung that feels similar to when he had pleurisy. Coronavirus screen: Client denies travel out of the [place] in the last 14 days. Ebola Screen: Patient denies exposure to infectious person. Patient denies travel to an Ebola-affected area in the 21 days before illness onset. Initial Sepsis Screen: Does the patient meet any 2 criteria? No. Patient's initial sepsis screen is negative. Does the patient have a suspected source of infection? No. Patient's initial sepsis screen is negative. Risk Assessment: Do you want to hurt yourself or someone else? Patient reports no desire to harm self or others. Onset of symptoms was January 15, 2024. 09:55 Method Of Arrival: Ambulatory ss 09:55 Acuity: ANALI 2 ss Historical: - Allergies: 09:58 Unknown BP medication; ss - Home Meds: 14:58 Lantus U-100 Insulin 100 unit/mL Sub-Q solution 15 units 2 times per day [Active]; tl4 atorvastatin oral [Active]; gabapentin 800 mg oral tablet daily [Active]; - PMHx: 14:58 Diabetes mellitus; Hypercholesterolemia; tl4 - PSHx: 09:58 L foot; ss - Immunization history:: Client reports receiving the 2nd dose of the Covid vaccine. - Infectious Disease History:: Denies. - Social history:: Smoking status: Patient reports the use of cigarette tobacco products, smokes one pack cigarettes per day. Screenin:29 [facility] ED Fall Risk Assessment (Adult) History of falling in the last 3 months, ll1 including since admission No falls in past 3 months (0 pts) Confusion or Disorientation No (0 pts) Intoxicated or Sedated No (0 pts) Impaired Gait No (0 pts) Mobility Assist Device Used No (0 pt) Altered Elimination No (0 pt) Score/Fall Risk Level 0 - 2 = Low Risk Maintained a safe environment, Hourly rounding (assess needs \\T\\ fall precautionary measures) done. Abuse screen: Denies threats or abuse. Nutritional screening: No deficits noted. Tuberculosis screening: No symptoms or risk factors identified. Assessment: 10:11 General: Appears uncomfortable, Behavior is calm, cooperative, appropriate for age, ll1 Reports fatigue for weight loss. Pain: Complains of pain in L chest Quality of pain is described as aching, Aggravated by deep breathing. Neuro: Reports weakness. Respiratory: Reports shortness of breath cough that is pain with cough. GI: Reports weight loss. 11:04 Reassessment: No changes from previously documented assessment. Patient and/or family ll1 updated on plan of care and expected duration. Pain level reassessed. Patient is alert, oriented x 3, equal unlabored respirations, skin warm/dry/pink. Vital Signs: 09:55 BP 183 / 107; Pulse 128; Resp 20; Temp 98.6(TE); Pulse Ox 100% on R/A; Height 5 ft. 8 ss in. ; Pain 10/10; 10:47 BP 171 / 100; Pulse 104; Resp 20; Pulse Ox 97% on R/A; ll1 11:03 BP 171 / 100; Pulse 99; Resp 19; Pulse Ox 98% on R/A; ll1 12:00 BP 169 / 96; Pulse 94; Resp 16; Pulse Ox 100% on R/A; tl4 12:30 BP 183 / 108; Pulse 92; Resp 20; Pulse Ox 99% on R/A; tl4 13:15 BP 176 / 103; Pulse 86; Resp 19; Pulse Ox 99% ; Weight 49 kg; Height 5 ft. 8 in. ; tl4 13:30 BP 169 / 86; Pulse 85; Resp 15; Pulse Ox 95% on R/A; tl4 13:45 BP 182 / 94; Pulse 84; Resp 18; Pulse Ox 98% on R/A; tl4 14:00 BP 150 / 98; Pulse 81; Resp 22; Pulse Ox 98% on R/A; tl4 14:15 BP 169 / 91; Pulse 80; Resp 25; Pulse Ox 98% on R/A; tl4 14:30 BP 147 / 87; Pulse 84; Resp 18; Pulse Ox 98% on R/A; tl4 14:45 BP 148 / 85; Pulse 84; Resp 16; Pulse Ox 97% on R/A; tl4 15:15 BP 138 / 83; Pulse 90; Resp 20; Pulse Ox 97% on R/A; tl4 15:45 BP 160 / 83; Pulse 89; Resp 18; Pulse Ox 98% on R/A; tl4 16:00 BP 150 / 88; Pulse 77; Resp 18; Temp 98.3(O); Pulse Ox 98% on R/A; tl4 13:15 Body Mass Index 16.43 (49.00 kg, 172.72 cm) tl4 09:55 Pain Scale: Adult ss ED Course: 09:43 Patient arrived in ED. mg5 09:45 Chas Shabazz PA is PHCP. cp 09:45 Jimmy Rush MD is Attending Physician. cp 09:52 Arm band placed on Patient placed in an exam room, on a stretcher. ll1 09:58 Triage completed. ss 10:10 EKG done, by ED staff. em1 10:20 Inserted saline lock: 20 gauge in right upper arm, using aseptic technique. Blood ll1 collected. Flushed with 10 mL NS. 10:26 Emanuel Jackson, RN is Primary Nurse. ll1 10:29 Patient has correct armband on for positive identification. Bed in low position. Call ll1 light in reach. Provided Education on: ER procedures and process. Client placed on continuous cardiac and pulse oximetry monitoring. NIBP monitoring applied. site monitor on. 10:29 No provider procedures requiring assistance completed. ll1 10:32 XRAY Chest (1 view) In Process Unspecified. EDMS 11:32 CT Chest For PE Angio In Process Unspecified. EDMS 12:33 Linda Thomas MD is Hospitalizing Provider. cp 12:44 Blood Culture Adult (2) Sent. tl4 13:52 Inserted saline lock: 18 gauge in left upper arm, using aseptic technique. Flushed with tl4 10 mL NS. 14:00 Inserted saline lock: 22 gauge in left wrist, using aseptic technique. Flushed with 10 tl4 mL NS. 16:16 Patient admitted, IV remains in place. tl4 Administered Medications: 10:31 Not Given (Physician Discretion): [id number] mg IV at calculated rate once cp 10:45 Drug: morphine IVP or IV 4 mg IVP once over 4 mins {Note: pain 10/10, RASS 0.} Route: ll1 IVP; Infused Over: 4 mins; Site: right upper arm; 12:08 Follow up: Response: No adverse reaction; Pain is decreased tl4 10:46 Drug: Aspirin PO Chewable Tablet 324 mg PO once; 81 mg tablets x 4 Route: PO; ll1 12:08 Follow up: Response: No adverse reaction tl4 10:46 Drug: Metoprolol IVP 5 mg IVP once; Hold for SBP <100 or HR <60. {Note: BP 190/101, HR ll1 125.} Route: IVP; Site: right upper arm; 12:08 Follow up: Response: No adverse reaction; Blood pressure is unchanged tl4 10:47 Drug: Metoprolol PO 25 mg PO once Route: PO; ll1 12:08 Follow up: Response: No adverse reaction; Blood pressure is unchanged tl4 11:01 Drug: NS 0.9% IV 1000 ml IV at 999 ml/hr Per protocol {Note: 171/100, HR 103.} Route: ll1 IV; Rate: 999 ml/hr; Site: right upper arm; 12:08 Follow up: Response: No adverse reaction; IV Status: Completed infusion; IV Intake: tl4 1000ml 11:01 CANCELLED (Physician Discretion): metoprolol5 mg IVP every 5 minutes; Hold for SBP < cp 100 or HR < 60. x3 11:02 Drug: Metoprolol IVP 5 mg IVP once; Hold for SBP <100 or HR <60. Route: IVP; Site: [facility] right upper arm; 12:08 Follow up: Response: No adverse reaction; Blood pressure is unchanged tl4 12:08 Follow up: Response: No adverse reaction; Blood pressure is unchanged tl4 11:02 CANCELLED (just givenn): metoprolol5 mg IVP every 5 minutes; Hold for SBP < 100 or HR < ll1 60. x2 12:20 Drug: levofloxacin IVPB 750 mg 150 ml IVPB once over 90 mins Volume: 150 ml; Route: tl4 IVPB; Infused Over: 90 mins; Site: right antecubital; Delivery: Primary tubing; 14:39 Follow up: Response: No adverse reaction; IV Status: Completed infusion; IV Intake: tl4 150ml 13:27 CANCELLED (Physician Discretion): [id number] mg IVP once; For SBP > 140 mmHg. Hold cp if less than 120 mmHg. 13:52 Drug: Heparin (MO-Bolus with thrombolytic) - HEParin IVP 60 units/kg IVP once; Max 4000 tl4 units {Co-Signature: rakesh (Elaine Jamison RN).} Route: IVP; Site: left upper arm; 14:40 Follow up: Response: No adverse reaction tl4 13:59 Drug: Heparin (MO Drip) 12 units/kg/[place] - ([place] [address] units, D5W IV 500 ml) IV at tl4 calculated rate Per protocol; Max initial rate 1000 units/hr {Co-Signature: rakesh (Elaine Jamison RN).} Route: IV; Rate: calculated rate; Site: left upper arm; 14:41 Follow up: Response: No adverse reaction tl4 14:02 Drug: d10 250 ml IV at calculated rate once; VO/ 100% RB Route: IV; Rate: calculated tl4 rate; Site: left upper arm; Delivery: Primary tubing; 14:44 Follow up: Response: No adverse reaction; Blood sugar is elevated; IV Status: Completed tl4 infusion; IV Intake: 250ml 14:30 Drug: niCARdipine IV 5 mg/hr IV at calculated rate See Administration Instructions; tl4 (Standard concentration 25 mg / 250 mL NS); Recommended max rate 15 mg/hr; Titrate 2.5 mg/hr as often as every 15 minutes to achieve goal (see titration policy); Goal parameter SBP less than 160 mmHg {Note: medication held due to pt BP was under goal BP.} Route: IV; Rate: calculated rate; Site: right upper arm; Delivery: Primary tubing; 16:08 Drug: D10 in Water IVP 250 ml IVP once Route: IVP; Site: left wrist; tl4 Medication: 10:29 VIS not applicable for this client. ll1 Intake: 12:08 IV: 1000ml; Total: 1000ml. tl4 14:39 IV: 150ml; Total: 1150ml. tl4 14:44 IV: 250ml; Total: 1400ml. tl4 Outcome: 12:35 Decision to Hospitalize by Provider. cp 16:16 Admitted to ICU tl4 16:16 Condition: stable 16:16 Instructed on the need for admit, 16:40 Patient left the ED. eb Signatures: Dispatcher [employer] Ashvin Francisco em1 Carolynn Forbes, RN RN ss Chas Shabazz PA PA cp Botello, Elizabeth eb Lewis, Lynsay RN RN ll1 Jessica Dugan 5 Arvind Hui RN RN tl4 Elaine Jamison RN ko1
[2024-02-12] MEDS ORDERED: HEPARIN 5000 UNIT/ML 1 ML VIAL ONE (13:23)
[2024-02-12] MEDS ORDERED: HEPARIN/D5W 25,000 UNIT/500 ML BAG IV ONE (13:23)
--- NOTE | 2024-02-12 13:41 | P.CNS ---
Date of Consult: 02/12/24 Chief Complaint: chest pain History of Present Illness: Patient with PMH of DM, presented with chest pain/lung pain that has been going on for a month, has been getting antibiotics but it has not been helping, mention that he feel pain in his lungs when he breath, associated with pro ductive cough, denies having chest pressure, no arm pain, no palpitations, no syncope. Allergies No Known Allergies Allergy (Unverified 02/09/23 12:30) Home medications list reviewed: Yes - Past Medical/Surgical History Diabetic: Yes - Social History Alcohol use: No Review of Systems 10-point ROS is otherwise unremarkable Physical Examination General: Alert, In no apparent distress HEENT: Atraumatic, PERRLA, Mucous membr. moist/pink, EOMI, Sclerae nonicteric Neck: Supple, 2+ carotid pulse no bruit, No LAD, Without JVD or thyroid abnormality Respiratory: Clear to auscultation bilaterally, Normal air movement Cardiovascular: Regular rate/rhythm, Normal S1 S2 Gastrointestinal: Normal bowel sounds, No tenderness Musculoskeletal: No tenderness Integumentary: No rashes Neurological: Normal gait, Normal speech, Normal tone, Normal affect Lymphatics: No axilla or inguinal lymphadenopathy Laboratory Data (last 24 hrs) 02/12/24 02/12/24 02/12/24 10:20 10:20 10:20 WBC 16.50 H Hgb 13.2 L Hct 39.0 L Plt Count 564 H PT 12.9 H INR 1.16 Sodium 130 L Potassium 3.7 BUN 13 Creatinine 0.97 Glucose 120 H Magnesium 1.6 Total Bilirubin 0.4 AST 28 ALT 59 Alkaline Phosphatase 167 H - Problems (1) NSTEMI (non-ST elevated myocardial infarction) Current Visit: Yes Status: Acute Plan: Keep trending cardiac enzymes until peak and down trending ASA 325 mg po x1 then continue ASA 81 mg daily Heparin drip ACS protocol Lipitor 40 mg daily NPO after midnight for coronary angiogram in am get Echo (2) HTN (hypertension) Current Visit: Yes Status: Acute Plan: start patient on lopressor 25 mg po BID Lasix 20 mg IV BID as BNP is elevated Monitor input and output and electrolytes Echo (3) HLD (hyperlipidemia) Current Visit: Yes Status: Acute Plan: Lipitor 40 mg daily
[2024-02-12] MEDS ORDERED: Nicardipine/NS 25 MG/250 ML KIT IV ONE (13:57)
[2024-02-12] MEDS ORDERED: D10W 250 ML IV ONE ×2 (13:58→16:06)
[2024-02-12] MEDS ORDERED: ACETAMINOPHEN 500 MG TAB PO PRN (14:08)
--- NOTE | 2024-02-12 14:34 | P.HP ---
Certification for Inpatient Patient admitted to: Inpatient With expected LOS: >2 Midnights <Anne Caruso - Last Filed: 02/12/24 15:01> Patient History Date of Service: 02/12/24 Reason for admission: HTN urgency, NSTEMI, pneumonia, diabetes, hyperlipidemia History of Present Illness: Mr. Joseph is a 63-year-old male with a past medical history of hypertension, hyperlipidemia, and diabetes who presents to the ED with a 1 month history of cough and congestion with increasing amount of thick yellow/green sputum and pleuritic pain. He has been to a clinic x 2 and given antibiotics (doxycycline and then Zithromax) and cough medicine. He was prescribed a short course of steroids on 01/30/2024. The most recent medication was Zithromax which he finished yesterday. On evaluation in the emergency department, he was found to have a WBC of 16.5 with neutrophils of 86.8%, platelets of 564, H/H 13.2/39. INR 1.16, troponin 126.4, BNP 4444,Chem-7 sodium 130, potassium 3.7, chloride 95, bicarb 28, creatinine 0.97 with a GFR of 87, glucose 120, lactate 1.2 Vital signs on arrival with significant hypertension at 183/107, heart rate 128, 98.6, with O2 sat of 100% on 5 L. His EKG on arrival send normal sinus rhythm with right atrial enlargement, right bundle branch block, flipped T's in V2, V3, peaked T waves in V4-V6. Dr. Kellogg evaluated the patient in the emergency department. Aortic patient be placed on a heparin drip, n.p.o. after midnight for left heart cath, and we will obtain an echo. Imaging studies show Chest x-ray impression: "Irregular airspace disease at the left lung base concerning for pneumonia." To rule out PE, CT chest PE protocol was performed with the impression: "No evidence of pulmonary emboli to the subsegmental level. Left lower lobe nodular and consolidative airspace disease consistent with pneumonia." On exam in the ED, patient remains hypertensive at 176/101, complains of painful, pleuritic cough productive of yellow-green thick mucus, denies nausea, vomiting, or diarrhea. He is mildly diaphoretic and nauseated. Repeat fingerstick 47 g/dL. 250 mL bolus of D10 given. Will place patient on clear liquids for dinner when blood pressure and pulmonary status somewhat improves. Patient will be n.p.o. postmidnight for left heart cath in a.m. Home medications list reviewed: No (Per patient history) - Past Medical/Surgical History Has patient received pneumonia vaccine in the past: No Diabetic: Yes -: Hypertension -: Hyperlipidemia -: Diabetes -: Neuropathy -: Left foot with multiple surgeries status post fracture and diabetic wound Psychosocial/ Personal History: Lives in an apartment with his in [place] - Family History Brother -: Heart disease, Hypertension, Diabetes - Social History Smoking Status: Current every day smoker (1 pack/day) Alcohol use: No CD- Drugs: No Caffeine use: Yes Place of Residence: Home <Anne Carusolen - Last Filed: 02/12/24 15:01> Date of Service: 02/12/24 <Linda Thomas - Last Filed: 02/19/24 21:54> Allergies No Known Allergies Allergy (Unverified 02/09/23 12:30) Review of Systems 10-point ROS is otherwise unremarkable General: Fever, Chills, Sweats, Weakness, Malaise, As per HPI Eyes: Unremarkable ENT: Unremarkable Respiratory: Cough, Shortness of Breath, SOB with Excertion, Sputum Cardiovascular: Orthopnea Gastrointestinal: Nausea Genitourinary: Unremarkable Musculoskeletal: Unremarkable Integumentary: Unremarkable Neurological: Unremarkable <Anne Carusolen - Last Filed: 02/12/24 15:01> Physical Examination - Physical Exam General: Alert, Oriented x3, Disheveled, Mild distress, Moderate distress, Other (Pallor with mild diaphoresis) HEENT: Atraumatic, Normocephalic Neck: Supple Respiratory: Diminished, Expiratory wheezes Cardiovascular: No edema, Regular rate/rhythm, Other (Mildly tachycardic) Capillary refill: <2 Seconds Gastrointestinal: Normal bowel sounds, Other (Malnourished) Musculoskeletal: No clubbing Integumentary: No rashes, Other (Pallor) Neurological: Normal speech, Sensation intact, Normal affect, Abnormal strength Lymphatics: No axilla or inguinal lymphadenopathy External genitalia: Deferred Rectal: Deferred - Studies Laboratory Data (last 24 hrs) 02/12/24 02/12/2424 10:20 10:20 10:20 WBC 16.50 H Hgb 13.2 L Hct 39.0 L Plt Count 564 H PT 12.9 H INR 1.16 Sodium 130 L Potassium 3.7 BUN 13 Creatinine 0.97 Glucose 120 H Magnesium 1.6 Total Bilirubin 0.4 AST 28 ALT 59 Alkaline Phosphatase 167 H Microbiology Data (last 24 hrs): 02/12/24 10:20 Nasopharnyx Influenza Type A Antigen Screen - Final 02/12/24 10:20 Nasopharnyx Influenza Type B Antigen Screen - Final <Anne Caruso Hugo - Last Filed: 02/12/24 15:01> Assessment and Plan - Plan - Problems (1) NSTEMI (non-ST elevated myocardial infarction) Current Visit: Yes Status: Acute Plan: Keep trending cardiac enzymes until peak and down trending ASA 81 mg daily Heparin drip ACS protocol Lipitor 40 mg daily NPO after midnight for coronary angiogram in am get Echo Pain controlmorphine (2)Pneumonia with failed out patient therapy Blood cultures drawn in ED Zosyn 3.375 g Q8 IV Albuterol/Atrovent nebs I-S Treated with 2 rounds of antibiotics, last antibiotic Zithromax completed last 250 mg tablet yesterday (3) HTN (hypertension) Current Visit: Yes Status: Acute Plan: start patient on lopressor 25 mg po BID, will start at 2100 Lasix 20 mg IV BID as BNP is elevated Monitor input and output and electrolytes Echo (4) HLD (hyperlipidemia) Current Visit: Yes Status: Acute Plan: Lipitor 40 mg daily (5) Diabetes mellitus Fingerstick blood sugar monitoring every 6 and when not NPO before every meal and at bedtime mild sliding scale insulin coverage (6) Weight loss, malnutrition QuantiFERON-TB Jevity starting after cardiac cath tomorrow dietitian consult Daily weights Intake and output (7) neuropathy Gabapentin 400 mg p.o. twice daily VTE/GI prophylaxis - Advance Directives Does patient have a Living Will: Yes Does patient have a Durable POA for Healthcare: Yes - Code Status/Comfort Care Code Status Assessed: Yes (Full) <Anne Caruso Hugo - Last Filed: 02/12/24 15:01> Date of Service: 02/12/24 Patient was seen and examined. Events of the last 24 hours have been noted. Spoke with with MARGUERITE regarding patient's clinical picture after evaluating and examining the patient independently. I performed a substantial part of the MDM during this patient's care today. I personally made or approved the documented management plan and acknowledge its risk of complications. I agree with the findings and documentation provided in the MARGUERITE's notes. <Linda Thomas - Last Filed: 02/19/24 21:54>
[2024-02-12] MEDS ORDERED: Nicardipine/NS 25 MG/250 ML KIT IV SCH (15:00)
[2024-02-12] MEDS: INSULIN REGULAR (HUMAN) 100 UNIT/ML SQ SCH (17:05)
[2024-02-12] MEDS: PIPER TAZO 3.375 GM in NA CHLORIDE 0.9% 100 ML IV SCH (17:39)
[2024-02-12] MEDS: METOPROLOL TAR 25 MG TAB PO SCH (17:39)
[2024-02-12] MEDS: NA CHLORIDE 0.9% 1,000 ML IV SCH (17:39)
[2024-02-12] MEDS: FUROSEMIDE 20 MG/ 2ML VIAL IV SCH (17:39)
[2024-02-12] MEDS: IPRATROPIUM BROM 0.5MG/2.5ML NEB SCH (19:30)
[2024-02-12] MEDS: ALBUTEROL 2.5 MG/3 ML NEB SOL NEB SCH (19:30)
[2024-02-12] MEDS: POTASSIUM CL SA 10 MEQ TAB PO ONE (19:31)
[2024-02-12] MEDS: MAGNESIUM SULFATE 1 gm IVPB 1 GM/100 ML BAG IV ONE (19:31)
[2024-02-12] MEDS: ATORVASTATIN 40 MG TAB PO SCH (20:16)
[2024-02-12] MEDS: MORPHINE 4 MG/ML SYR IV PRN (20:17)
[2024-02-12] MEDS: GABAPENTIN 400 MG CAP PO SCH (20:17)
[2024-02-13 03:54] LABS: Absolute Basophils 0.1 K/uL (0-0.5); Absolute Eosinophils 0.1 K/uL (0-0.5); Absolute Lymphocytes (CBC) 2.1 K/uL (0.7-4.9); Absolute Monocytes 1.4 K/uL (0.1-1.3); Absolute Neutrophil 16.1 K/uL (1.8-8.0); Basophils % 0.3 % (0-1.3); Eosinophils % 0.7 % (0-4.4); Hematocrit 37.9 % (39.6-49.0); Hemoglobin 12.4 g/dL (13.6-17.9); Lymphocytes % 10.4 % (15.3-44.8); MCH 28.9 pg (27.0-35.0); MCHC 32.8 g/dL (32.0-36.0); MCV 88.1 fL (80-100); MPV 6.2 fL (7.6-11.3); Monocytes % 7.1 % (3.3-12.3); Neutrophils % 81.5 % (41.7-73.7); Platelets 526 thou/uL (152-406); RBC Red Blood Cell Count 4.31 M/uL (4.33-5.43); Red Cell Distribution Width 14.1 % (12.1-15.2)
[2024-02-13 03:57] LABS: PT Prothrombin Time 12.8 SECONDS (9.4-12.5); PTT, Activated Partial Thromb 34.5 SECONDS (24.3-36.9); Protime INR 1.15
[2024-02-13 04:28] LABS: Albumin 1.9 g/dL (3.4-5.0); Albumin/Globulin Ratio 0.4 (1.1-1.8); Anion Gap 7.2 mEq/L (5.0-15.0); Bilirubin Total 0.3 mg/dL (0.2-1.0); Globulin 4.7 g/dL (2.3-3.5); Phosphorus 3.2 mg/dL (2.5-4.9); Protein, Total 6.6 g/dL (6.4-8.2)
[2024-02-13 04:29] LABS: Magnesium 1.9 mg/dL (1.6-2.4); Potassium 4.2 mEq/L (3.5-5.1); Troponin High Sensitivity 66.8 pg/mL (<58.9)
[2024-02-13] MEDS: D10W 250 ML IV ONE (04:29)
[2024-02-13] MEDS ORDERED: D10W 250 ML BAG IV PRN (04:37)
[2024-02-13] MEDS: D10W 125 ML IV PRN (04:43)
[2024-02-13] MEDS: D5 0.9 NS 1,000 ML IV SCH (08:25)
[2024-02-13] MEDS: ASPIRIN EC 81 MG TAB PO SCH (08:26)
[2024-02-13] MEDS: MIDAZOLAM HCL 2 MG/2 ML INJ ONE (08:57)
[2024-02-13] MEDS: FENTANYL CITR 100 MCG/2 ML ONE (08:58)
[2024-02-13] MEDS ORDERED: HEPA 1000U/500MLS 2,000 UNIT/1,000 ML BAG IV ONE (09:08)
[2024-02-13] MEDS ORDERED: NITROGLYCERIN/D5W 50 MG/250 ML BTL IV ONE (09:09)
[2024-02-13] MEDS ORDERED: ATROPINE SULF 1 MG/10 ML SYR IV ONE (09:09)
[2024-02-13] MEDS ORDERED: LIDOCAINE 1% 20 ML MDV ONE (09:09)
[2024-02-13] MEDS ORDERED: HEPARIN 10,000 UNIT/10 ML VIAL IV ONE (09:09)
[2024-02-13] MEDS ORDERED: HEPARIN 5000 UNIT/ML 1 ML VIAL ONE (09:10)
--- NOTE | 2024-02-13 09:57 | P.PN ---
Subjective Date of Service: 02/13/24 Chief Complaint: HTN urgency, NSTEMI, pneumonia, diabetes, hyperlipidemia Subjective: No new changes, No C/O voiced, Tolerating diet, Ambulating, Improving Review of Systems 10-point ROS is otherwise unremarkable Physical Examination - Vital Signs Temperature: 97.9 F Blood Pressure: 129/61 Pulse: 87 Respirations: 19 Pulse Ox (%): 98 - Physical Exam General: Alert, In no apparent distress HEENT: Atraumatic, PERRLA, EOMI Neck: Supple, JVD not distended Respiratory: Clear to auscultation bilaterally, Normal air movement Cardiovascular: Regular rate/rhythm, Normal S1 S2 Gastrointestinal: Normal bowel sounds, No tenderness Musculoskeletal: No tenderness Integumentary: No rashes Neurological: Normal speech, Normal tone, Normal affect Lymphatics: No axilla or inguinal lymphadenopathy - Studies Laboratory Data (last 24 hrs) 02/12/24 02/12/24 02/12/24 10:20 10:20 10:20 WBC 16.50 H Hgb 13.2 L Hct 39.0 L Plt Count 564 H PT 12.9 H INR 1.16 Sodium 130 L Potassium 3.7 BUN 13 Creatinine 0.97 Glucose 120 H Magnesium 1.6 Total Bilirubin 0.4 AST 28 ALT 59 Alkaline Phosphatase 167 H Microbiology Data (last 24 hrs): 02/12/24 10:20 Nasopharnyx Influenza Type A Antigen Screen - Final 02/12/24 10:20 Nasopharnyx Influenza Type B Antigen Screen - Final Medications List Reviewed: Yes Assessment And Plan - Current Problems (Diagnosis) (1) NSTEMI (non-ST elevated myocardial infarction) Current Visit: Yes Status: Acute Plan: Cardiac enzymes are trending donw ASA 81 mg daily Heparin drip ACS protocol Lipitor 40 mg daily for coronary angiogram today get Echo (2) HTN (hypertension) Current Visit: Yes Status: Acute Plan: lopressor 25 mg po BID Lasix 20 mg IV BID as BNP is elevated Monitor input and output and electrolytes Echo (3) HLD (hyperlipidemia) Current Visit: Yes Status: Acute Plan: Lipitor 40 mg daily
[2024-02-13 10:16] LABS: Urine Bilirubin NEGATIVE (Negative); Urine Blood Negative (Negative); Urine Clarity Clear (Clear); Urine Color Colorless (Yellow); Urine Glucose NEGATIVE (Negative); Urine Ketones NEGATIVE (Negative); Urine Microscopic Reflex YN NO UMIC; Urine Nitrite NEGATIVE (Negative); Urine Protein NEGATIVE (Negative); Urine Urobilinogen Normal (Normal)
--- NOTE | 2024-02-13 10:18 | EKG ---
Test Date: 2024-02-12 Test Time: 10:10:14 Field Clerk: NGOZI MEASUREMENT RESULTS: Intervals: Rate: 119 KS: 136 QRSD: 126 QT: 346 QTc: 486 Liberal: P: 88 KS: 136 QRS: 79 T: 78 INTERPRETIVE STATEMENTS: Sinus tachycardia Right atrial enlargement Right bundle branch block Abnormal ECG No previous ECG available for comparison Electronically Signed On 02-13-24 10:17:05 CDT by Samuel Kellogg
--- NOTE | 2024-02-13 10:30 | P.PN ---
Subjective Date of Service: 02/13/24 Chief Complaint: HTN urgency, NSTEMI, pneumonia, diabetes, hyperlipidemia Pt is resting comfortably in bed. He is coughing up brownish sputum. Pt reports that his feeling better. He is getting heparin drip and abx. No other complaints. Review of Systems General: Unremarkable Eyes: Unremarkable ENT: Unremarkable Respiratory: Cough, SOB with Excertion Cardiovascular: Unremarkable Gastrointestinal: Unremarkable Genitourinary: Unremarkable Musculoskeletal: Unremarkable Integumentary: Unremarkable Neurological: Unremarkable Lymphatics: Unremarkable Physical Examination - Vital Signs Temperature: 97.9 F Blood Pressure: 129/61 Pulse: 87 Respirations: 19 Pulse Ox (%): 98 - Physical Exam General: Alert, In no apparent distress, Oriented x3 HEENT: Atraumatic, Normocephalic, PERRLA Neck: Supple, 2+ carotid pulse no bruit, JVD not distended Respiratory: Clear to auscultation bilaterally, Normal air movement Cardiovascular: No edema, Normal pulses, Regular rate/rhythm, Normal S1 S2 Capillary refill: <2 Seconds Gastrointestinal: Normal bowel sounds, Soft and benign, Non-distended Musculoskeletal: No clubbing, No swelling, No contractures Integumentary: No rashes, No breakdown, No significant lesion Neurological: Normal gait, Normal speech, Normal strength at 5/5 x4 extr, Normal tone, Sensation intact, Cranial nerves 3-12 intact Lymphatics: No axilla or inguinal lymphadenopathy - Studies Laboratory Data (last 24 hrs) 02/12/24 02/12/24 02/12/24 10:20 10:20 10:20 WBC 16.50 H Hgb 13.2 L Hct 39.0 L Plt Count 564 H PT 12.9 H INR 1.16 Sodium 130 L Potassium 3.7 BUN 13 Creatinine 0.97 Glucose 120 H Magnesium 1.6 Total Bilirubin 0.4 AST 28 ALT 59 Alkaline Phosphatase 167 H Microbiology Data (last 24 hrs): 02/12/24 10:20 Nasopharnyx Influenza Type A Antigen Screen - Final 02/12/24 10:20 Nasopharnyx Influenza Type B Antigen Screen - Final Medications List Reviewed: Yes Assessment And Plan - Plan NSTEMI: Troponin is 126 -> 80 -> 66.8. Will trend troponin Q6h. Will continue heparin drip. Pt denies any chest pain. Likley due to sepsis 2/2 Pneumonia. Will continue aspirin and atorvastatin. Consulted Cardiology. Pt is NPO. Will f/u Echo. Sepsis 2/2 Pneumonia : Will continue zosyn , oxygen, duoneb and mucinex. He has productive cough. Htn: Continue metoprolol 25mg po BID. Elevated BNP: BNP is 4444. Will f/u ECho to r/o CHF. HLD: statin DM II: Continue acciuchek, SSI and ADA diet. Pt had hyperglycemia this am. Will give D5NS. Moderate malnutition: Pt was encouraged to eat. Consulted Superintendent Stevedoring. Will f/u QuantiFERON-TB. Will resume Jevity after cardiac evaluation Neuropathy: gabapentin 400 mg p.o. twice daily Nutrition: Will continue D5NS. DVT ppx: SCD GI ppx: protonix. Code: full
[2024-02-13 15:20] VITALS: BMI 16.9
[2024-02-13] MEDS: GUAIFENESIN 600 MG SA TAB PO SCH (20:14)
[2024-02-13] MEDS: GLUCERNA SHAKE 237 ML CAN PO SCH (20:16)
[2024-02-13] MEDS ORDERED: ENSURE ENLIVE 237 ML CAN PO SCH (21:00)
--- NOTE | 2024-02-13 21:42 | OP ---
Date of Procedure: 02/13/2024 Surgeon: Samuel Kellogg Procedure Performed: Selective coronary angiogram. Indication For Procedure: [id number]. Complications: None. Access: Right radial, closed by TR band. Estimated Blood Loss: Less than 50 cc. Sedation Time: 20 minutes with 1 of Versed and 25 of fentanyl. Description Of Procedure: After risks, benefits, and alternatives were explained to the patient, the patient agreed to proceed with the procedure and signed informed consent. The patient was brought b [facility] to the mineral ore processing labourer, prepped and draped in sterile fashion. Time-out was performed. Sedation was ad ministered. Next, the right radial access was obtained. A [place] 4 catheter was advanced over the J- wire to the aortic root. Selective angiogram was done of the left and right coronary systems. At th e end of procedure, catheter was pulled back over J-wire. Sheath was removed. TR band was applied. Hemostasis achieved. The patient was moved back to recovery in stable condition. Findings: 1.Left main, normal. 2.LAD, proximal mild luminal irregularities with mid 60% disease of the origin of diagonal 1 and the n another mid to distal 80% disease and distal to apical mild luminal irregularities. 3.D1, few proximal to mid 70% disease and mild luminal irregularities. 4.Left circ, small, but gives a large OM with proximal 80% disease. 5.RCA, large dominant with proximal mild luminal irregularities. Mid 70% disease then followed by a nother mid 60% disease. Distal mild luminal irregularities. 6.RPDA, proximal 60% disease, then bifurcated into 2 branches. One of them got proximal 90% disease . Assessment And Plan: 1.Significant 3-vessel CAD including LAD, diagonal, OM, and mid RCA. 2.The plan will be refer for CT Surgery as an outpatient to evaluate for CABG. 3.Continue medical management for CAD meanwhile. GOSS/MODL Voice ID: [id number] Report ID: [id number]
[2024-02-14] MEDS: HEPARIN/D5W 25,000 UNIT/500 ML BAG IV SCH (00:41)
[2024-02-14 05:56] LABS: Absolute Basophils 0.1 K/uL (0-0.5); Absolute Eosinophils 0.2 K/uL (0-0.5); Absolute Lymphocytes (CBC) 2.1 K/uL (0.7-4.9); Absolute Monocytes 1.1 K/uL (0.1-1.3); Absolute Neutrophil 12.6 K/uL (1.8-8.0); Basophils % 0.3 % (0-1.3); Eosinophils % 1.4 % (0-4.4); Hematocrit 36.7 % (39.6-49.0); Hemoglobin 12.1 g/dL (13.6-17.9); MCH 28.9 pg (27.0-35.0); MCHC 32.9 g/dL (32.0-36.0); MCV 87.8 fL (80-100); MPV 6.4 fL (7.6-11.3); Monocytes % 6.7 % (3.3-12.3); Neutrophils % 78.6 % (41.7-73.7); Platelets 446 thou/uL (152-406); RBC Red Blood Cell Count 4.18 M/uL (4.33-5.43); Red Cell Distribution Width 14.2 % (12.1-15.2)
[2024-02-14 06:11] LABS: Albumin 1.8 g/dL (3.4-5.0); Albumin/Globulin Ratio 0.4 (1.1-1.8); Bilirubin Total 0.4 mg/dL (0.2-1.0); Globulin 4.3 g/dL (2.3-3.5); Protein, Total 6.1 g/dL (6.4-8.2)
--- NOTE | 2024-02-14 08:04 | P.PN ---
Date of Service: 02/14/24 Subjective Chief Complaint: HTN urgency, NSTEMI, pneumonia, diabetes, hyperlipidemia Status post heart cath Review of Systems 10 point ROS negative unless listed in HPI Physical Examination - Vital Signs reviewed - Physical Exam General: Alert, In no apparent distress, Oriented x3 HEENT: Atraumatic, Normocephalic, PERRLA Neck: Supple, 2+ carotid pulse no bruit, JVD not distended Respiratory: Clear to auscultation bilaterally, Normal air movement Cardiovascular: No edema, Normal pulses, Regular rate/rhythm, Normal S1 S2 Capillary refill: <2 Seconds Gastrointestinal: Normal bowel sounds, Soft and benign, Non-distended Musculoskeletal: No clubbing, No swelling, No contractures Integumentary: No rashes, No breakdown, No significant lesion Neurological: Normal gait, Normal speech, Normal strength at 5/5 x4 extr, Normal tone, Lymphatics: No axilla or inguinal lymphadenopathy Assessment And Plan - Plan NSTEMI: Originally admitted to ICU-02/12 transferred to floor 02/12 heart cath plan outpatient for CT surgery evaluation for CABG Troponin is 126 -> 80 -> 66.8. Will trend troponin Q6h. Will continue heparin drip. Pt denies any chest pain. Likley due to sepsis 2/2 Pneumonia. Will continue aspirin and atorvastatin. Consulted Cardiology. Pt is NPO. Will f/u Echo. Sepsis 2/2 Pneumonia : Acute hypoxic respiratory failure secondary to pneumonia Will continue zosyn , oxygen, duoneb and mucinex. He has productive cough. Htn: Continue metoprolol 25mg po BID. Elevated BNP: BNP is 4444. Will f/u ECho to r/o CHF. HLD: statin DM II: Continue acciuchek, SSI and ADA diet. Pt had hyperglycemia this am. Will give D5NS. Moderate malnutition: Pt was encouraged to eat. Consulted Associate Chemist. Will f/u QuantiFERON-TB. Will resume Jevity after cardiac evaluation Neuropathy: gabapentin 400 mg p.o. twice daily Nutrition: Will continue D5NS. DVT ppx: SCD, heparin drip GI ppx: protonix. Code: cable splicing technician spent with patient 30 minutes <Mia Coronel - Last Filed: 02/19/24 06:09> Patient was seen and examined. Events of the last 24 hours have been noted. Spoke with with MARGUERITE regarding patient's clinical picture after evaluating and examining the patient independently. I performed a substantial part of the MDM during this patient's care today. I personally made or approved the documented management plan and acknowledge its risk of complications. I agree with the findings and documentation provided in the MARGUERITE's notes. <Linda Thomas - Last Filed: 02/19/24 23:46>
--- NOTE | 2024-02-14 08:09 | P.DS ---
Admission Date: 02/12/24 Discharge Date: 02/15/24 Reason for Admission: HTN urgency, NSTEMI, pneumonia, diabetes, hyperlipidemia Brief History of Present Illness: Mr. Joseph is a 63-year-old male with a past medical history of hypertension, hyperlipidemia, and diabetes who presents to the ED with a 1 month history of cough and congestion with increasing amount of thick yellow/green sputum and pleuritic pain. He has been to a clinic x 2 and given antibiotics (doxycycline and then Zithromax) and cough medicine. He was prescribed a short course of steroids on 01/30/2024. The most recent medication was Zithromax which he finished yesterday. On evaluation in the emergency department, he was found to have a WBC of 16.5 with neutrophils of 86.8%, platelets of 564, H/H 13.2/39. INR 1.16, troponin 126.4, BNP 4444,Chem-7 sodium 130, potassium 3.7, chloride 95, bicarb 28, creatinine 0.97 with a GFR of 87, glucose 120, lactate 1.2 Vital signs on arrival with significant hypertension at 183/107, heart rate 128, 98.6, with O2 sat of 100% on 5 L. His EKG on arrival send normal sinus rhythm with right atrial enlargement, right bundle branch block, flipped T's in V2, V3, peaked T waves in V4-V6. Dr. Kellogg evaluated the patient in the emergency department. Aortic patient be placed on a heparin drip, n.p.o. after midnight for left heart cath, and we will obtain an echo. - Physical Exam General: Alert, Oriented x3, Disheveled, Mild distress, Moderate distress, Other (Pallor with mild diaphoresis) HEENT: Atraumatic, Normocephalic Neck: Supple Respiratory: Diminished, Expiratory wheezes Cardiovascular: No edema, Regular rate/rhythm, Other (Mildly tachycardic) Capillary refill: <2 Seconds Gastrointestinal: Normal bowel sounds, Other (Malnourished) Musculoskeletal: No clubbing Integumentary: No rashes, Other (Pallor) Neurological: Normal speech, Sensation intact, Normal affect, Abnormal strength Lymphatics: No axilla or inguinal lymphadenopathy Hospital Course: Mr. Joseph is a 63-year-old male with a past medical history of hypertension, hyperlipidemia, and diabetes who presents to the ED with a 1 month history of cough and congestion with increasing amount of thick yellow/green sputum and pleuritic pain. He has been to a clinic x 2 and given antibiotics (doxycycline and then Zithromax) and cough medicine. He was prescribed a short course of silver roids on 01/30/2024. The most recent medication was Zithromax which he finished yesterday. On evaluation in the emergency department, he was found to have a WBC of 16.5 with neutrophils of 86.8%, platelets of 564, H/H 13.2/39. INR 1.16, troponin 126.4, BNP 4444,Chem-7 sodium 130, potassium 3.7, chloride 95, bicarb 28, creatinine 0.97 with a GFR of 87, glucose 120, lactate 1.2. His EKG on arrival send normal sinus rhythm with right atrial enlargement, right bundle branch block, flipped T's in V2, V3, peaked T waves in V4-V6. Cardiology consulted Dr. Kellogg evaluated the patient in the emergency department. Aortic patient be placed on a heparin drip, Medications to continue outpatient cefdinir, albuterol inhaler, Aspirin 81 mg daily Lipitor 40 mg daily Lopressor 25 mg p.o. BID Lasix 40 mg daily Assessment NSTEMI status postcardiac cath-02/12 heart cath plan outpatient for CT surgery evaluation for CABG-treat w herarin drip, Elevated BNP-Plan refer for CT Surgery as an outpatient to evaluate for CABG. per cardiology sepsis/Pneumonia failed outpatient treatment, treated with IV Zosyn, Acute hypoxic respiratory failure secondary to pneumonia improved Hypertension, hyperlipidemia resume home meds Diabetes mellitus resume home meds Continue home medicines as previously prescribed GOAL: Clear understanding of disease process INSTRUCTIONS: Physician Discharge Instructions: -Follow-up with PCP in 1 to 2 weeks -Please call Dr. Thomas at [phone] if any questions regarding hospital stay -Please call nursing station at [phone] if any nursing or medication questions -Return to the emergency room if symptoms worsen Diet: ADA, low sodium Activity: Fall precautions <Mia Coronel - Last Filed: 02/19/24 06:03> Admission Date: 02/12/24 Discharge Date: 02/15/24 Hospital Course: Patient was seen and examined. Events of the last 24 hours have been noted. Spoke with with MARGUERITE regarding patient's clinical picture after evaluating and examining the patient independently. I performed a substantial part of the MDM during this patient's care today. I personally made or approved the documented management plan and acknowledge its risk of complications. I agree with the findings and documentation provided in the MARGUERITE's notes. <ThomasCindy jenkinswhitney Angelito - Last Filed: 02/19/24 23:46> Disposition: ROUTINE DISCHARGE Vital Signs/Physical Exam: Temp Pulse Resp BP Pulse Ox 97.5 F 69 18 147/81 H 96 02/14/24 04:00 02/14/24 06:01 02/14/24 04:00 02/14/24 06:01 02/13/24 16:00 Laboratory Data at Discharge: WBC 16.10 thou/uL (4.3-10.9) H 02/14/24 05:48 Hgb 12.1 g/dL (13.6-17.9) L 02/14/24 05:48 Hct 36.7 % (39.6-49.0) L 02/14/24 05:48 Plt Count 446 thou/uL (152-406) H 02/14/24 05:48 PT 12.8 SECONDS (9.4-12.5) H 02/13/24 03:35 INR 1.15 02/13/24 03:35 APTT 59.5 SECONDS (24.3-36.9) H 02/14/24 05:48 Sodium 124 mEq/L (136-145) L 02/14/24 05:48 Potassium 5.0 mEq/L (3.5-5.1) D 02/14/24 05:48 BUN 19 mg/dL (7-18) H 02/14/24 05:48 Creatinine 1.30 mg/dL (0.70-1.30) 02/14/24 05:48 Glucose 333 mg/dL (74-106) H 02/14/24 05:48 Phosphorus 3.2 mg/dL (2.5-4.9) 02/13/24 03:35 Magnesium 1.9 mg/dL (1.6-2.4) 02/13/24 03:35 Total Bilirubin 0.4 mg/dL (0.2-1.0) 02/14/24 05:48 AST 16 U/L (15-37) 02/14/24 05:48 ALT 35 U/L (16-61) 02/14/24 05:48 Alkaline Phosphatase 161 U/L (45-117) H 02/14/24 05:48 Triglycerides 110 mg/dL (<150) 02/13/24 03:35 Cholesterol 139 mg/dL (<200) 02/13/24 03:35 HDL Cholesterol 43 mg/dL (40-60) 02/13/24 03:35 Cholesterol/HDL Ratio 3.23 02/13/24 03:35 <Mia Coronel - Last Filed: 02/19/24 06:03> Vital Signs/Physical Exam: Temp Pulse Resp BP Pulse Ox 98.3 F 84 14 152/79 H 99 02/15/24 12:00 02/15/24 12:00 02/15/24 12:00 02/15/24 12:00 02/15/24 12:00 Laboratory Data at Discharge: WBC 10.70 thou/uL (4.3-10.9) 02/15/24 05:02 Hgb 10.8 g/dL (13.6-17.9) L D 02/15/24 05:02 Hct 30.7 % (39.6-49.0) L 02/15/24 05:02 Plt Count 466 thou/uL (152-406) H 02/15/24 05:02 PT 12.8 SECONDS (9.4-12.5) H 02/13/24 03:35 INR 1.15 02/13/24 03:35 APTT 59.5 SECONDS (24.3-36.9) H 02/14/24 05:48 Sodium 129 mEq/L (136-145) L D 02/15/24 05:02 Potassium 4.3 mEq/L (3.5-5.1) D 02/15/24 05:02 BUN 20 mg/dL (7-18) H 02/15/24 05:02 Creatinine 1.24 mg/dL (0.70-1.30) 02/15/24 05:02 Glucose 287 mg/dL (74-106) H 02/15/24 05:02 Phosphorus 3.2 mg/dL (2.5-4.9) 02/13/24 03:35 Magnesium 1.9 mg/dL (1.6-2.4) 02/13/24 03:35 Total Bilirubin 0.3 mg/dL (0.2-1.0) 02/15/24 05:02 AST 12 U/L (15-37) L 02/15/24 05:02 ALT 28 U/L (16-61) 02/15/24 05:02 Alkaline Phosphatase 138 U/L (45-117) H 02/15/24 05:02 Triglycerides 110 mg/dL (<150) 02/13/24 03:35 Cholesterol 139 mg/dL (<200) 02/13/24 03:35 HDL Cholesterol 43 mg/dL (40-60) 02/13/24 03:35 Cholesterol/HDL Ratio 3.23 02/13/24 03:35 <Linda Thomas - Last Filed: 02/19/24 23:46> Diet: AHA Activity: Fall precautions Time spent managing pt's care (in minutes): 55 <Mia Coronel - Last Filed: 02/19/24 06:03> <Linda Thomas - Last Filed: 02/19/24 23:46> Home Medications: Aspirin [Low Dose Aspirin EC] 81 mg PO DAILY 02/12/24 Atorvastatin Calcium [Lipitor] 80 mg PO DAILY 02/12/24 Gabapentin [Neurontin*] 400 mg PO BID 02/12/24 Insulin Glargine,Hum.rec.anlog [Lantus] 15 ml SQ BID 02/12/24 Albuterol Sulfate [Albuterol Sulfate Hfa] 8.5 gm IH Q4HP PRN #1 inh 02/17/24 Benzonatate [Tessalon Perle] 100 mg PO TID #30 cap 02/17/24 Cefdinir [Cefdinir*] 300 mg PO BID #14 cap 02/17/24 Metoprolol Tartrate [Lopressor] 25 mg PO BID #60 tab 02/17/24 New Medications: Albuterol Sulfate [Albuterol Sulfate Hfa] 8.5 gm IH Q4HP PRN #1 inh PRN Reason: Shortness Of Breath Cefdinir [Cefdinir*] 300 mg PO BID #14 cap Metoprolol Tartrate [Lopressor] 25 mg PO BID #60 tab Benzonatate [Tessalon Perle] 100 mg PO TID #30 cap Physician Discharge Instructions: Mr. Joseph is a 63-year-old male with a past medical history of hypertension, hyperlipidemia, and diabetes who presents to the ED with a 1 month history of cough and congestion with increasing amount of thick yellow/green sputum and pleuritic pain. He has been to a clinic x 2 and given antibiotics (doxycycline and then Zithromax) and cough medicine. He was prescribed a short course of steroids on 01/30/2024. The most recent medication was Zithromax which he finished yesterday. On evaluation in the emergency department, he was found to have a WBC of 16.5 with neutrophils of 86.8%, platelets of 564, H/H 13.2/39. INR 1.16, troponin 126.4, BNP 4444,Chem-7 sodium 130, potassium 3.7, chloride 95, bicarb 28, creatinine 0.97 with a GFR of 87, glucose 120, lactate 1.2. His EKG on arrival send normal sinus rhythm with right atrial enlargement, right bundle branch block, flipped T's in V2, V3, peaked T waves in V4-V6. Cardiology consulted Dr. Kellogg evaluated the patient in the emergency department. Aortic patient be placed on a heparin drip, he needs to follow-up with Dr. Maradiaga outpatient cardiology to schedule outpatient CABG Pneumonia Discharged home on cefdinir 1 p.o. twice daily for 7 days #14 Albuterol inhaler 1 puff as needed every 4-6 hours for wheezing, cough shortness of breath Tessalon Perles, 1 every 8 hours as needed for cough Medications to continue outpatient Aspirin 81 mg daily Lipitor 40 mg daily Lopressor 25 mg p.o. daily Lasix 40 mg daily NSTEMI status postcardiac cath Plan refer for CT Surgery as an outpatient to evaluate for CABG. per cardiology Pneumonia failed outpatient treatment, treated with IV Zosyn, Hypertension, hyperlipidemia resume home meds Diabetes mellitus resume home meds Continue home medicines as previously prescribed GOAL: Clear understanding of disease process INSTRUCTIONS: Physician Discharge Instructions: -Follow-up with cardiology outpatient for CABG and [place] -Follow-up with PCP in 1 to 2 weeks -Please call Dr. Thomas at [phone] if any questions regarding hospital stay -Please call nursing station at [phone] if any nursing or medication questions -Return to the emergency room if symptoms worsen Diet: ADA, low sodium Activity: Fall precautions Followup: Samuel Kellogg MD [ACTIVE - CAN ADMIT] - 1-2 Weeks Luzma Aranda MD [Primary Care Provider] - 1-2 Weeks
--- NOTE | 2024-02-14 11:02 | ECHO ---
HEIGHT: 5 ft 8 in WEIGHT: 111 lb 0 oz DATE OF STUDY: 02/13/[address]: Anne Caruso RIPENING ROOM HAND-BC 2-DIMENSIONAL: YES M.MODE: YES DOPPLER: YES COLOR FLOW: YES TDS: PORTABLE: YES DEFINITY: BUBBLE STUDY: DIAGNOSIS: HYPERTENSIVE URGENCY, NON ST ELEVATION MYOCARDIAL INFARCTION CARDIAC HISTORY: CATHERIZATION: NO SURGERY: NO PROSTHETIC VALVE: NO PACEMAKER: NO MEASUREMENTS (cm) DIASTOLIC (NORMALS) SYSTOLIC (NORMALS) IVSd 0.9 (0.6-1.2) LA Diam 1.7 (1.9-4.0) LVEF 60-65% LVIDd 3.4 (3.5-5.7) LVIDs 2.2 (2.0-3.5) %FS 36% LVPWd 0.9 (0.6-1.2) Ao Diam 2.4 (2.0-3.7) 2 DIMENSIONAL ASSESSMENT: RIGHT ATRIUM: NORMAL LEFT ATRIUM: NORMAL RIGHT VENTRICLE: NORMAL LEFT VENTRICLE: NORMAL TRICUSPID VALVE: NORMAL MITRAL VALVE: NORMAL PULMONIC VALVE: NORMAL AORTIC VALVE: NORMAL PERICARDIAL EFFUSION: NONE AORTIC ROOT: NORMAL LEFT VENTRICULAR WALL MOTION: NORMAL DOPPLER/COLOR FLOW: NORMAL COMMENTS: 1. NORMAL LEFT VENTRICULAR SYSTOLIC FUCNTION, EJECTION FRACTION 60-65%, NORMAL WALL MOTION 2. NORMAL DIASTOLIC FUNCTION TECHNOLOGIST: PAULINA ROJAS
--- NOTE | 2024-02-14 12:02 | P.PN ---
Subjective Date of Service: 02/14/24 Chief Complaint: HTN urgency, NSTEMI, pneumonia, diabetes, hyperlipidemia Subjective: No new changes, No C/O voiced, Tolerating diet, Ambulating, Improving Review of Systems 10-point ROS is otherwise unremarkable Physical Examination - Vital Signs Temperature: 97.5 F Blood Pressure: 147/81 Pulse: 69 Respirations: 16 Pulse Ox (%): 97 - Physical Exam General: Alert, In no apparent distress HEENT: Atraumatic, PERRLA, EOMI Neck: Supple, JVD not distended Respiratory: Clear to auscultation bilaterally, Normal air movement Cardiovascular: Regular rate/rhythm, Normal S1 S2 Gastrointestinal: Normal bowel sounds, No tenderness Musculoskeletal: No tenderness Integumentary: No rashes Neurological: Normal speech, Normal tone, Normal affect Lymphatics: No axilla or inguinal lymphadenopathy - Studies Medications List Reviewed: Yes Assessment And Plan - Current Problems (Diagnosis) (1) NSTEMI (non-ST elevated myocardial infarction) Current Visit: Yes Status: Acute Plan: Coronary angioram shows multivessel CAD, OUTPATIENT evaluation for CABG. Echo shows normal EF ASA 81 mg daily Heparin drip ACS protocol for 48 hours total since admission Lipitor 40 mg daily (2) HTN (hypertension) Current Visit: Yes Status: Acute Plan: lopressor 25 mg po BID stop Lasix (3) HLD (hyperlipidemia) Current Visit: Yes Status: Acute Plan: Lipitor 40 mg daily
[2024-02-15 05:19] LABS: Absolute Basophils 0.1 K/uL (0-0.5); Absolute Eosinophils 0.2 K/uL (0-0.5); Absolute Lymphocytes (CBC) 1.5 K/uL (0.7-4.9); Absolute Monocytes 0.9 K/uL (0.1-1.3); Basophils % 0.7 % (0-1.3); Eosinophils % 2.2 % (0-4.4); Hematocrit 30.7 % (39.6-49.0); Hemoglobin 10.8 g/dL (13.6-17.9); Lymphocytes % 13.9 % (15.3-44.8); MCH 30.3 pg (27.0-35.0); MCHC 35.1 g/dL (32.0-36.0); MCV 86.2 fL (80-100); MPV 6.1 fL (7.6-11.3); Monocytes % 8.1 % (3.3-12.3); Neutrophils % 75.1 % (41.7-73.7); Platelets 466 thou/uL (152-406); RBC Red Blood Cell Count 3.56 M/uL (4.33-5.43)
[2024-02-15 05:37] LABS: Albumin 1.7 g/dL (3.4-5.0); Albumin/Globulin Ratio 0.4 (1.1-1.8); Anion Gap 6.3 mEq/L (5.0-15.0); Bilirubin Total 0.3 mg/dL (0.2-1.0); Globulin 3.9 g/dL (2.3-3.5); Potassium 4.3 mEq/L (3.5-5.1); Protein, Total 5.6 g/dL (6.4-8.2)
[2024-02-15 09:40] VITALS: O2SAT 98
--- NOTE | 2024-02-15 12:59 | EKG ---
Test Date: 2024-02-14 Test Time: 08:45:40 Stocking Inspector: MAYURI MEASUREMENT RESULTS: Intervals: Rate: 70 NE: 140 QRSD: 122 QT: 410 QTc: 442 [place]: P: 47 NE: 140 QRS: 54 T: 54 INTERPRETIVE STATEMENTS: Normal sinus rhythm Right bundle branch block Abnormal ECG Compared to ECG 02/12/2024 11:00:07 Atrial abnormality no longer present Electronically Signed On 02-15-24 12:55:09 CDT by Samuel Kellogg
--- NOTE | 2024-02-15 13:06 | EKG ---
Test Date: 2024-02-12 Test Time: 11:00:07 Door Maker: NGOZI MEASUREMENT RESULTS: Intervals: Rate: 100 ND: 138 QRSD: 128 QT: 364 QTc: 469 [place]: P: 85 ND: 138 QRS: 72 T: 75 INTERPRETIVE STATEMENTS: Normal sinus rhythm Right atrial enlargement Right bundle branch block Abnormal ECG Compared to ECG 02/12/2024 10:10:14 Sinus tachycardia no longer present Electronically Signed On 02-15-24 12:57:37 CDT by Samuel Kellogg
[2024-02-15 14:07] VITALS: BP 152/79; TEMP 98.3
== END 2024-02-15 14:10 | disposition home or self-care (01) | DRG 871 ==
LOC: ER 09:38 → ERHOLD 14:08 → 3RD-ICU 16:41 → 2ND 02-13 15:33
PROVIDERS: ADMIT Hospitalist; ATTEND Hospitalist
PROC: 4A023N7 Measurement of Cardiac Sampling and Pressure, Left Heart, Percutaneous Approach (ICD-10-PCS; principal; 2024-02-13)
PROC: B2111ZZ Fluoroscopy of Multiple Coronary Arteries using Low Osmolar Contrast (ICD-10-PCS; 2024-02-13)
DX: A41.9 Sepsis, unspecified organism (principal); E43 Unspecified severe protein-calorie malnutrition; J96.01 Acute respiratory failure with hypoxia; R65.21 Severe sepsis with septic shock; J18.9 Pneumonia, unspecified organism; I21.4 Non-ST elevation (NSTEMI) myocardial infarction; Z68.1 Body mass index [BMI] 19.9 or less, adult; I16.0 Hypertensive urgency; E11.40 Type 2 diabetes mellitus with diabetic neuropathy, unspecified; I45.10 Unspecified right bundle-branch block; E78.00 Pure hypercholesterolemia, unspecified; F17.210 Nicotine dependence, cigarettes, uncomplicated; Z79.4 Long term (current) use of insulin; Z79.82 Long term (current) use of aspirin; Z11.52 Encounter for screening for COVID-19; Z79.899 Other long term (current) drug therapy
CPT/HCPCS: 36415; 71045; 71275; 76937; 80048; 80053; 80061; 80076; 81003; 82947; 83605; 83735; 83880; 84100; 84145; 84443; 84484; 85025; 85610; 85730; 86480; 87040; 87804; 87811; 93005; 93306; 93454; 94640; 99152; 99153; 99285; J0461; J1644; J1940; J2001; J2250; J2543; J3010; J3475; J7030; J7042; J7613; J7644; Q9966; Q9967